=== PATIENT | male | born 1950 | race Two or more races ===

== ENCOUNTER 2020-02-07 09:25 | Outpatient (REF) | payer MEDICAID, SELFPAY ==
[2020-02-07 11:37] LABS: Alanine Aminotransferase 21 U/L (0-40); Albumin Level 4.2 g/dL (3.5-5.0); Alkaline Phosphatase 60 U/L (39-117); Anion Gap 10 (12-20); Aspartate Amino Transferase 22 U/L (5-37); Bilirubin Total 0.9 mg/dL (0.0-1.0); Blood Urea Nitrogen 21 mg/dL (9-16); Calcium 9.4 mg/dL (8.4-10.2); Carbon Dioxide 32 mmol/L (22-29); Chloride 102 mmol/L (96-108); Cholesterol 154 mg/dL; Estimated Glomerular Filt Rate > 60; Glucose Fasting 96 mg/dL (60-99); HDL Cholesterol 43 mg/dL; LDL Cholesterol Calculated 90 mg/dl; Potassium 4.2 mmol/l (3.3-5.1); Sodium 140 mmol/L (135-145); Total Protein 7.2 g/dL (6.5-8.0); Triglycerides 108 mg/dL
== END 2020-02-07 09:26 | disposition home or self-care (01) ==
LOC: HO.LAB 09:25
PROVIDERS: PCP Internal Medicine; Visit Provider Internal Medicine
DX: I10 Essential (primary) hypertension (principal)
CPT/HCPCS: 80053; 80061

== ENCOUNTER → 2020-02-10 11:02 | Outpatient (BNVA) | payer MEDICAID, SELFPAY | PROVIDERS: PCP Internal Medicine; Referring Provider Internal Medicine; Visit Provider Nurse Practitioner Family | DX: R07.89 Other chest pain (principal); I10 Essential (primary) hypertension; E78.5 Hyperlipidemia, unspecified; I25.2 Old myocardial infarction | CPT/HCPCS: 99214 ==

== ENCOUNTER → 2020-02-23 15:04 | Outpatient (REF) | payer MEDICAID, SELFPAY ==
--- NOTE | 2020-02-23 15:09 | CA_ITS ---
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 The visually estimated ejection fraction is between 60-65%. - There is mild aortic valve regurgitation. - There is mild dilatation of the ascending aorta measuring 3.90 cm. Findings Left Ventricle Normal left ventricular cavity size. There is moderately increased left ventricular wall thickness. The left ventricular systolic function is normal. The visually estimated ejection fraction is between 60-65%. There is no evidence of regional wall motion abnormalities. Diastolic function is normal for age. Right Ventricle Normal right ventricular cavity size and systolic function. Atria Both atria are normal in size. Aortic Valve There is a normal trileaflet aortic valve. There is no aortic valve stenosis. There is mild aortic valve regurgitation. Mitral Valve The mitral valve appears normal. There is trace mitral valve regurgitation. There is no mitral valve stenosis. Pulmonic Valve The pulmonic valve was not well visualized. Tricuspid Valve Normal tricuspid valve structure. There is trace tricuspid valve regurgitation. The pulmonary artery systolic pressure is normal. Great Vessels There is mild dilatation of the ascending aorta measuring 3.90 cm. Venous The inferior vena cava is normal in size and collapses greater than 50% with inspiration. Pericardium/Pleural There is no evidence of pericardial effusion. Prior Study Comparison No prior study available for comparison. Measurements 2D Linear Measurements IVSd: 1.30 0.6-0.9/0.6-1.0 cm LVIDd: 4.24 3.9-5.3/4.2-5.9 cm LVIDd Index: 2.15 2.4-3.2/2.2-3.1 cm/m2 LVIDs: 2.82 2.0-3.6 cm LVPWd: 1.35 0.7-1.1 cm Ao Root: 3.10 2.1-3.5 cm LA Diam: 3.40 2.7-3.8/3.0-4.0 cm LAIDs Index: 1.73 1.5-2.3 cm/m2 LV Mass: 260.89 67-162/88-224 g LV Mass Index: 132.43 43-95/49-115 g/m2 LVOT Diam: 2.20 3.0+(-)1.3 cm Mitral Valve MV Pk E: 0.49 MV PK A: 0.78 MV Decel Time: 197.00 E/A: 0.60 E'Lateral: 5.13 E'Medial: 8.12 E/E' Med: 6.00 E/E' Lat: 9.50 PHT: 58.00 MVA PHT: 3.79 Decel Wallace: 2.46 Aortic Valve AoV Pk Dylon: 1.44 AoV Mn Dylon: 1.00 AoV VTI: 0.34 AoV Pk Grad: 8.00 Aov Mn Grad: 5.00 FELIX Cont.VTI: 2.19 LVOT LVOT Pk Dylon: 0.93 LVOT Mn Dylon: 0.57 LVOT VTI: 0.20 LVOT Pk Grad: 3.00 LVOT Mn Grad: 2.00 LVOT Diam: 2.20 LVOT Area: 3.80 Diastolic Function MV Pk E: 0.49 MV Pk A: 0.78 E/A: 0.60 E'Medial: 8.12 E/E' Med: 6.00 E' Laterial: 5.13 E/E' Lat: 9.50 Tricuspid Valve TR Pk Dylon: 1.87 TR Pk Grad: 14.00 RA Press: 3.00 RVSP: 17.00 Great Vessels Aorta Ao Root-2D: 3.10 2.0-3.7 cm Ao Asc: 3.90 2.1-3.4 cm Pulmonary Valve PV Pk Dylon: 0.99 Peak PV Grad: 4.00 Updated in Other Vendor System with Status of Final Nacho Alejandro MD electronically signed on 02/24/2020 9:30:19 AM with status of Final
== END ==
LOC: HO.CARD 15:04
PROVIDERS: PCP Internal Medicine; Visit Provider Nurse Practitioner Family
DX: R07.9 Chest pain, unspecified (principal); I25.2 Old myocardial infarction; I10 Essential (primary) hypertension; E78.5 Hyperlipidemia, unspecified
CPT/HCPCS: 93306

== ENCOUNTER 2020-06-01 15:55 | Outpatient (REF) | payer MEDICAID, SELFPAY ==
--- NOTE | 2020-06-01 16:10 | XR_ITS ---
EXAMINATION: XR CHEST CLINICAL INFORMATION: Hemoptysis. COMPARISON: 01/19/2020 chest radiograph. TECHNIQUE: 2 views of the chest were obtained. FINDINGS: An opacity is seen in the right upper lobe and the suprahilar region. There is mild elevation of the right hemidiaphragm with blunting of the right costophrenic angle without significant change. The left lung is clear. The heart and mediastinal structures are unremarkable. XR/XR chest 2V IMPRESSION: Opacity in the right upper lobe is nonspecific, but could represent an infiltrate. A follow-up chest radiograph finding termination treatment for pneumonia is recommended to assess for resolution. If this finding does not resolve, a chest CT scan is recommended.
[2020-06-01 17:00] LABS: MANUAL DIFF FLAG NO
[2020-06-01 17:06] LABS: Basophils Percent Auto 0.5 % (0-2); Eosinophils Absolute Auto 0.2 X10*3/uL (0.0-0.4); Eosinophils Percent Auto 2.3 % (0-4); Hematocrit 43.2 % (42-52); Hemoglobin 14.4 g/dl (14.0-18.0); Imm Gran Abs Auto 0.01 X10*3/uL (0.00-0.03); Imm Gran Pct Auto 0.2 % (0.0-0.4); Lymphocytes Absolute Auto 2.6 X10*3/uL (1.2-4.9); Lymphocytes Percent Auto 40.3 % (20-40); Mean Corpuscular HGB Conc 33.3 g/dl (31.0-36.0); Mean Corpuscular Hemoglobin 28.9 pg (27.0-33.0); Mean Corpuscular Volume 86.6 fL (80-98); Mean Platelet Volume 9.9 fL (9.4-12.4); Monocytes Absolute Auto 0.7 X10*3/uL (0.1-1.2); Monocytes Percent Auto 10.8 % (2-11); Neutrophils Percent Auto 45.9 % (45-73); Platelet Count 215 X10*3/uL (160-400); Red Blood Count 4.99 X10*6/uL (4.60-5.80); Red Cell Distribution Width 12.9 % (11.0-16.0); White Blood Count 6.5 X10*3/uL (4.8-10.8)
[2020-06-01 17:24] LABS: Alanine Aminotransferase 23 U/L (0-40); Albumin Level 4.3 g/dL (3.5-5.0); Alkaline Phosphatase 94 U/L (39-117); Anion Gap 12 (12-20); Aspartate Amino Transferase 24 U/L (5-37); Blood Urea Nitrogen 17 mg/dL (9-16); Calcium 9.3 mg/dL (8.4-10.2); Carbon Dioxide 32 mmol/L (22-29); Chloride 100 mmol/L (96-108); Estimated Glomerular Filt Rate > 60; Glucose Random 93 mg/dL (60-115); Potassium 4.5 mmol/L (3.3-5.1); Sodium 139 mmol/L (135-145); Total Protein 7.6 g/dL (6.5-8.0)
[2020-06-01 17:45] LABS: Prostate Specific Antigen 1.18 ng/mL (<0.05-4.0)
== END 2020-06-01 15:56 | disposition home or self-care (01) ==
LOC: HO.LAB 15:55
PROVIDERS: PCP Internal Medicine; Visit Provider Internal Medicine
DX: R04.2 Hemoptysis (principal); Z12.5 Encounter for screening for malignant neoplasm of prostate
CPT/HCPCS: 36415; 71046; 80053; 84153; 85025

== ENCOUNTER 2020-06-04 16:42 | Outpatient (REF) | payer MEDICAID, SELFPAY | END 2020-06-04 16:43 | disposition home or self-care (01) | LOC: HO.LAB 16:42 | PROVIDERS: PCP Internal Medicine; Visit Provider Internal Medicine | DX: Z20.822 Contact with and (suspected) exposure to COVID-19 (principal) | CPT/HCPCS: 36415; C9803; U0003; U0005 ==

== ENCOUNTER 2020-06-11 16:38 | Outpatient (REF) | payer MEDICAID, SELFPAY ==
--- NOTE | ~2020-06-11 | XR_ITS ---
EXAMINATION: CHEST 2 VIEWS CLINICAL INFORMATION: R91.8 - Other nonspecific abnormal finding of lung field . COMPARISON: 06/01/2020. TECHNIQUE: PA and lateral views of the chest obtained. FINDINGS: There is asymmetric elevation of the right hemidiaphragm again noted, similar to the recent prior study focal opacity in the right upper lobe remains although this is slightly less prominent from the prior study. Improving infiltrate could have this appearance with mild residual postinfectious/postinflammatory changes however continued follow-up to complete resolution would be recommended. No significant effusion, edema, or pneumothorax. Cardiac and mediastinal silhouettes within normal limits for size. XR/XR chest 2V IMPRESSION: Chronic asymmetric elevation the right hemidiaphragm. Focal airspace opacity in the right upper lobe is again noted. This has shown mild improvement from the prior study but does still persist. Continued follow-up to assure complete resolution would be recommended. If this finding persists, cross-sectional imaging with CT scan of the chest could be obtained to evaluate this further.
== END 2020-06-11 16:39 | disposition home or self-care (01) ==
LOC: HO.XRAY 16:38
PROVIDERS: PCP Internal Medicine; Visit Provider Internal Medicine
DX: R91.8 Other nonspecific abnormal finding of lung field (principal)
CPT/HCPCS: 71046

== ENCOUNTER 2020-06-17 15:45 | Outpatient (REF) | payer MEDICAID, SELFPAY | END 2020-06-17 15:46 | disposition home or self-care (01) | LOC: HO.LAB 15:45 | PROVIDERS: PCP Internal Medicine; Visit Provider Internal Medicine | DX: Z20.822 Contact with and (suspected) exposure to COVID-19 (principal) | CPT/HCPCS: 36415; C9803; U0003; U0005 ==

== ENCOUNTER 2020-07-28 07:25 | Outpatient (REF) | payer MEDICAID, SELFPAY ==
[2020-07-28 09:11] LABS: Blood Urea Nitrogen 16 mg/dL (9-16); Estimated Glomerular Filt Rate > 60
== END 2020-07-28 07:26 | disposition home or self-care (01) ==
LOC: HO.LAB 07:25
PROVIDERS: PCP Internal Medicine; Visit Provider Internal Medicine
DX: R91.8 Other nonspecific abnormal finding of lung field (principal)
CPT/HCPCS: 36415; 82565; 84520

== ENCOUNTER 2020-07-30 07:17 | Outpatient (REF) | payer MEDICAID, SELFPAY ==
--- NOTE | ~2020-07-30 | CT_ITS ---
EXAMINATION: CT CHEST WITH CONTRAST CLINICAL INFORMATION: Abnormal lung finding. COMPARISON: Chest x-ray 06/11/2020 and 04/02/2017 TECHNIQUE: Multidetector volumetric CT imaging of the chest was obtained after the administration of 65 mL of Omnipaque 350 intravenous contrast without immediate adverse reactions. Axial MIP volume rendering provided. Sagittal and coronal reformatted images were obtained. This CT examination was performed using dose optimization techniques as appropriate, variously including the following: Automated exposure control Adjustment of mA and/or kV according to patient size (this includes techniques or standardized protocols for targeted exams where dose is matched to indication/reason for exam; i.e. 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 LUNGS: There is loss of right upper lobe lung volume with 2 areas of patchy ill-defined opacity in the anterior and lateral segment, likely chronic scarring. This finding extends to a chest x-ray from 04/02/2017, except for slightly more dense opacity in the right upper lobe on the present exam. Rest of the right lung and the left lung is expanded and clear. MEDIASTINUM: The thyroid lobes are normal in size with small hypodense nodules. Central trachea and the bronchi are widely patent. Heart size and the great vessels are of normal caliber. There are no abnormal mediastinal lymph nodes seen. The mediastinal vascular structures are normal. There is no pericardial effusion. PLEURA: There is no pleural effusion. No pleural mass or thickening. AXILLA: There are small shotty lymph nodes in the axilla. UPPER ABDOMEN: The liver is diffusely attenuated but normal in size and shape. No focal lesion or intrahepatic ductal dilatation seen. Visualized spleen, pancreas and bilateral adrenal glands are unremarkable. OSSEOUS STRUCTURES: There is moderate ventral spondylosis in the upper and mid dorsal spine. No lytic process. CT/CT chest w con IMPRESSION: There is loss of right upper lobe volume with elevated right hemidiaphragm. In addition there are 2 patchy ill-defined opacities in the right upper lobe likely chronic scarring. Differential diagnoses includes infiltrates or malignancy. Malignancy is considered less likely. These findings were seen on 2017 chest x-ray, and have gradually increased. A PET/CT examination may be helpful to exclude malignancy in this growing scar since they have increased in size. No abnormal mediastinal or axillary lymphadenopathy.
[2020-07-30] MEDS: iohexoL 350 MG/ML 75 ML INFUS..BTL 65 ML IV (08:25)
== END 2020-07-30 07:18 | disposition home or self-care (01) ==
LOC: HO.CT 07:17
PROVIDERS: Visit Provider Internal Medicine
DX: R91.8 Other nonspecific abnormal finding of lung field (principal)
CPT/HCPCS: 71260; Q9967

== ENCOUNTER → 2020-08-05 10:49 | Outpatient (BNVA) | payer MEDICAID, SELFPAY | PROVIDERS: PCP Internal Medicine; Visit Provider Internal Medicine Pulmonary Disease | DX: R91.8 Other nonspecific abnormal finding of lung field (principal); R05 Cough | CPT/HCPCS: 99202 ==

== ENCOUNTER 2020-08-10 12:20 | Outpatient (REF) | payer MEDICAID, SELFPAY ==
--- NOTE | ~2020-08-10 | PE_ITS ---
EXAMINATION: Fluorine-18 FDG PET/CT Scan CLINICAL INDICATION: Initial treatment management. Opacities in right upper lobe of the lung. PROCEDURE: 67 minutes following the intravenous administration of 16.5 mCi of fluorine 18 FDG, images from the base of the skull to the mid thighs were obtained using a combined PET/CT scanner with CT scan based attenuation correction. No oral contrast was administered. No intravenous contrast was administered. Transverse, coronal, sagittal, and volume reconstruction projections were obtained. The patient's blood glucose as determined by a finger stick, was 78 mg/dl immediately prior to injection. Total CT exam dose-length product 505.84 mGy-cm * These CT images were obtained using dose optimization techniques as appropriate, variously including the following: Automated exposure control * Adjustment of mA and/or kV according to patient size (this includes techniques or standardized protocols for targeted exams where dose is matched to indication/reason for exam; i.e. extremities or head) * Use of iterative reconstruction technique COMPARISON: No previous PET/CT scan is available for comparison. CT scan of the chest dated 07/30/2020 is available for comparison. FINDINGS: (Slice numbers described in this report are numbered superiorly to inferiorly with slice #1 in the head) NECK AND VISUALIZED HEAD: No foci of abnormal FDG activity are noted. The distribution of FDG activity is physiological. There is no cervical lymphadenopathy. THORAX: There is weak FDG activity associated with an irregular opacity in the right upper lobe, SUVmax 2.1, slice 83/267. On the CT images this measures approximately 2.3 x 1.3 cm in largest transverse dimensions and approximately 3.4 cm cephalocaudad. Posterior and slightly superior to this opacity a second right upper lobe opacity measuring 2.1 x 1.0 cm in largest transverse dimensions and approximately 2.3 cm cephalocaudad is present, and this shows even less intense weak FDG activity, SUVmax 1.3, slice 77/267. The appearance of these opacities is not significantly changed compared to the CT scan of the chest dated 07/30/2020. There is an additional proximal peribronchial focus of mildly increased FDG activity abutting the posterior aspect of the right middle lobe bronchus, showing SUVmax 4.2, slice 91/267. No definite CT correlate is present on either this study or the recent 07/30/2020 CT scan. No additional foci of abnormal FDG activity are present in the chest. There is no mediastinal, supraclavicular, or axillary lymphadenopathy. There is no pleural or pericardial fluid, or pneumothorax. ABDOMEN AND PELVIS: No foci of abnormal FDG activity are present in the abdomen or pelvis. There is mild FDG activity present throughout the gastrointestinal tract without a suspicious focal component. There is diverticulosis without evidence of diverticulitis. The hollow viscera are otherwise unremarkable. There is a hypodense cyst in the midpole of the left kidney which is markedly FDG photopenic and likely a simple cyst. The kidneys are otherwise unremarkable. The liver, gallbladder, spleen, adrenal glands and pancreas are unremarkable. Bilateral fat-containing inguinal hernias are present. There is no retroperitoneal, mesenteric, pelvic or inguinal lymphadenopathy. MUSCULOSKELETAL: No foci of abnormal FDG activity are present in the osseous structures. There are degenerative changes in the spine but no suspicious sclerotic or lytic lesions are visualized. VASCULAR: No significant abnormalities are present. PET/PET CT fusion skull to thigh IMPRESSION: 1. Weak FDG activity associated with opacities in the right upper lobe are noted as described above. This mild FDG intensity suggests a benign etiology. However Because approximately 10% of pulmonary malignancies demonstrate no abnormal FDG activity, if biopsy of these opacities is not obtained, followup with diagnostic CT scan in 6 months is recommended. 2. Mild FDG activity in a right proximal peribronchial focus shows no corresponding CT abnormality. This may be due to some prominence of vasculature in this region or an inflammatory focus, but in the absence of CT abnormality there is is not strongly suspicious for malignancy. 3. No additional abnormalities suspicious for metastatic or other malignant lesions are noted.
== END 2020-08-10 12:21 | disposition home or self-care (01) ==
LOC: HO.PET 12:20
PROVIDERS: PCP Internal Medicine; Visit Provider Internal Medicine Pulmonary Disease
DX: Z13.89 Encounter for screening for other disorder (principal)

== ENCOUNTER 2020-08-31 14:56 | Outpatient (REF) | payer MEDICAID, SELFPAY ==
--- NOTE | 2020-08-31 17:38 | PFT_ITS ---
INDICATION: Cough. SPIROMETRY: The FEV1 to FVC of 78% with an FEV1 of 2.17 L which is 70% predicted and an FVC of 2.77 L which is 68% predicted. No significant response to bronchodilators noted. Maximum voluntary ventilation 74% predicted. LUNG VOLUMES: Total lung capacity 59% predicted with an expiratory reserve volume of 68% predicted. DIFFUSION CAPACITY: DLCO 72% predicted. As per flow volume loop appears to be narrow. Flow volume loop suggesting of restrictive lung disease. COMPARISONS: None available. INTERPRETATION: No obstructive ventilatory defect. No significant response to bronchodilators noted. There is a mild decrease in maximum voluntary ventilation. However, there is a moderate restrictive ventilatory defect bringing up the concerns of underlying interstitial lung conditions and/or neuromuscular conditions. The patient also has a mild diffusion impairment. Clinical correlation warranted. MD SHADI Edmonds/AJAY / [id number]
== END 2020-08-31 14:57 | disposition home or self-care (01) ==
LOC: HO.RESP 14:56
PROVIDERS: PCP Internal Medicine; Visit Provider Internal Medicine Pulmonary Disease
DX: R05 Cough (principal)
CPT/HCPCS: 94060; 94727; 94729

== ENCOUNTER → 2020-09-03 15:39 | Outpatient (BNVA) | payer MEDICAID, SELFPAY | PROVIDERS: PCP Internal Medicine; Visit Provider Internal Medicine Pulmonary Disease | DX: R91.8 Other nonspecific abnormal finding of lung field (principal); R05 Cough; J84.9 Interstitial pulmonary disease, unspecified | CPT/HCPCS: 99212 ==

== ENCOUNTER → 2020-10-25 13:42 | Outpatient (BNVA) | payer MEDICAID, SELFPAY | PROVIDERS: PCP Internal Medicine; Referring Provider Internal Medicine; Visit Provider Internal Medicine Cardiovascular Disease | DX: I10 Essential (primary) hypertension (principal); I25.2 Old myocardial infarction; I25.82 Chronic total occlusion of coronary artery; E78.5 Hyperlipidemia, unspecified; E78.00 Pure hypercholesterolemia, unspecified; Z88.6 Allergy status to analgesic agent; Z88.1 Allergy status to other antibiotic agents; Z88.0 Allergy status to penicillin; Z88.2 Allergy status to sulfonamides; Z79.899 Other long term (current) drug therapy | CPT/HCPCS: 93005; 99212 ==

== ENCOUNTER 2020-12-08 09:33 | Outpatient (REF) | payer MEDICAID, SELFPAY ==
[2020-12-08 12:21] LABS: Alanine Aminotransferase 26 U/L (0-40); Albumin Level 4.3 g/dL (3.5-5.0); Alkaline Phosphatase 74 U/L (39-117); Anion Gap 12 (12-20); Aspartate Amino Transferase 24 U/L (5-37); Bilirubin Total 1.1 mg/dL (0.0-1.0); Blood Urea Nitrogen 15 mg/dL (9-16); Calcium 9.5 mg/dL (8.4-10.2); Carbon Dioxide 29 mmol/L (22-29); Chloride 102 mmol/L (96-108); Cholesterol 152 mg/dL; Estimated Glomerular Filt Rate > 60; HDL Cholesterol 39 mg/dL; LDL Cholesterol Calculated 88 mg/dl; Potassium 4.3 mmol/L (3.3-5.1); Sodium 139 mmol/L (135-145); Total Protein 7.3 g/dL (6.5-8.0); Triglycerides 125 mg/dL
[2020-12-08 12:44] LABS: Glucose Fasting 91 mg/dL (60-99)
== END 2020-12-08 09:34 | disposition home or self-care (01) ==
LOC: HO.HMGCLDS 09:33
PROVIDERS: PCP Internal Medicine; Visit Provider Internal Medicine
DX: E78.5 Hyperlipidemia, unspecified (principal); I10 Essential (primary) hypertension
CPT/HCPCS: 36415; 80053; 80061

== ENCOUNTER 2020-12-13 16:41 | Outpatient (REF) | payer MEDICAID, SELFPAY ==
--- NOTE | ~2020-12-13 | XR_ITS ---
EXAMINATION: XR HIP, LEFT CLINICAL INFORMATION: Left hip pain. COMPARISON: None. TECHNIQUE: 2 views of the left hip. FINDINGS: No acute fracture or dislocation. Minimal joint space narrowing with tiny lateral acetabular marginal osteophytes. No osseous erosion. Phleboliths. XR/XR hip LT min 2V IMPRESSION: Minimal left hip arthrosis.
== END 2020-12-13 16:42 | disposition home or self-care (01) ==
LOC: HO.XRAY 16:41
PROVIDERS: PCP Internal Medicine; Visit Provider Internal Medicine
DX: M25.552 Pain in left hip (principal)
CPT/HCPCS: 73502

== ENCOUNTER 2021-02-01 16:28 | Outpatient (REF) | payer MEDICAID, SELFPAY ==
--- NOTE | ~2021-02-01 | CT_ITS ---
EXAMINATION: CT CHEST WITHOUT CONTRAST CLINICAL INFORMATION: Follow-up right upper lung opacity COMPARISON: Previous chest CT July 2020, PET/CT July 2020 and chest x-rays most recent May 2020 TECHNIQUE: Multidetector volumetric CT imaging of the chest was done. Axial MIP volume rendering provided. Sagittal and coronal reformatted images were obtained. This CT examination was performed using dose optimization techniques as appropriate, variously including the following: *Automated exposure control *Adjustment of mA and/or kV according to patient size (this includes techniques or standardized protocols for targeted exams where dose is matched to indication/reason for exam; i.e. extremities or head) *Use of iterative reconstruction technique DLP: 375 mGy-cm FINDINGS: BODY ARTIST: Elevated right hemidiaphragm LUNGS: There is right upper lobe volume loss. There are 2 areas of parenchymal consolidation in the right upper lobe. These do not appear appreciably changed from July 2020 exam. One measures 2.2 x 2.9 cm for example axial image 152 series 5. This is irregularly-shaped and contains air bronchograms. The second measures 0.9 x 1.8 cm axial image 134 series 5 contains air bronchograms. Both are subpleural adjacent to the minor fissure. The larger lesion may cross the minor fissure and involve the right middle lobe. There may be an accessory right upper lobe fissure. There is peripheral scarring or subsegmental atelectasis at the right lung base. The lungs are otherwise clear. No endobronchial or endotracheal lesion is seen. MEDIASTINUM: The ascending thoracic aorta is upper normal in size measuring 4 cm. The mediastinum is otherwise normal. PLEURA: There is no pleural effusion. No pleural mass or thickening. AXILLA: No lymphadenopathy. UPPER ABDOMEN: Unremarkable. OSSEOUS STRUCTURES: There is evidence of old trauma to the right posterior sixth and seventh ribs. There are degenerative changes of the spine. CT/CT chest wo con IMPRESSION: No change in right upper lobe volume loss and irregularly-shaped abnormal parenchymal densities with air bronchograms in the right upper lobe.
== END 2021-02-01 16:29 | disposition home or self-care (01) ==
LOC: HO.CT 16:28
PROVIDERS: PCP Internal Medicine; Visit Provider Internal Medicine Pulmonary Disease
DX: R91.8 Other nonspecific abnormal finding of lung field (principal)
CPT/HCPCS: 71250

== ENCOUNTER 2021-02-09 15:54 | Outpatient (REF) | payer MEDICAID, SELFPAY ==
[2021-02-10 12:37] LABS: Influenza A PCR NEGATIVE (Negative); Influenza B PCR NEGATIVE (Negative); Resp Syncy Virus RNA Qual PCR NEGATIVE (Negative); SARS COV2 PCR INHOUSE NEGATIVE (Negative)
== END 2021-02-09 15:55 | disposition home or self-care (01) ==
LOC: HO.LAB 15:54
PROVIDERS: Visit Provider Physician Assistant Medical
DX: Z20.822 Contact with and (suspected) exposure to COVID-19 (principal); J06.9 Acute upper respiratory infection, unspecified
CPT/HCPCS: 0241U; 36415

== ENCOUNTER 2021-02-24 15:00 | Outpatient (RCR) | payer MEDICAID, SELFPAY ==
--- NOTE | 2021-01-19 17:40 | MHC.PT.EP ---
[facility] [place] [facility] [place] [address] [phone] F: [phone] F: [phone] F: [phone] F: [phone] Physical Therapy Plan of Care Date of Evaluation: Date of Surgery: n/a Diagnosis: pain in L hip, lower thoracic Assessment: Pt is a 70 yo/M referred to PT for eval/treat of pain in L hip, lower thoracic pain. S/S are consistent with L hip dysfunction resulting in decreased tolerance to ambulating for duration , negotiating stairs, and activities that require him to forward bend frequently and lifting objects off of the floor. Functional limitation mentioned above are secondary to decreased L hip strength, pain w/ L hip ROM at end range (flexion and abd), TTP of L iliac crest, and pain. pt is deemed appropriate to receive skilled PT to address her physical impairment and improve her functional abilities. Frequency and Duration: The patient will be seen 2x/wk for 5wk Short Term Goals: initiate HEP w/ evidence of compliance pt will report less than 2/10 pain w/ WB activites; initial 5/10 E [employer] Merchant Goals: pt will be I w/ HEP pt will be able to ambulate a mile with minimal pain/discomfort. pt will report i can lift heavy weights w/ minimal pain ; initial pain prevents me from lifting heavy objects off of the floor pt will report no longer finding TTP of R illiac crest Treatment Plan: Modalities to reduce pain, spasms and effusion. Manual therapy to restore motion and function. Therapeutic exercise to improve strength and flexibility. Neuromuscular re-education for posture and balance. Therapeutic activities to return to functional activities of daily living. Electronically signed by: Mike Perkins PT Please sign and return to therapist. Thank you for your referral.
--- NOTE | 2021-08-31 09:24 | MHC.PT.DC ---
[facility] [place] Office [place] Office [place] Office [address] [place] Bro[address] [phone] F: [phone] F: [phone] F: [phone] F: [phone] Physical Therapy Discharge Report Diagnosis: pain in L hip, lower thoracic Date of Surgery: n/a Date of Evaluation: 01/19/21 Date of Discharge: 08/31/21 Treatments to Date: 9 Cancellations to Date: No Shows to Date: Discharge Status: Achieved Goals Improved Function Independent with HEP Discharge Summary: Continues to demo good tolerance with exercises. Last scheduled appointment today (02/24). No adverse reactions noted. Has HEP for continued maintenance. DC to HEP Electronically signed by: Melba Stanford PT Please sign and return to therapist. Thank you for your referral.
== END 2021-08-31 09:25 | disposition home or self-care (01) ==
LOC: HO.PTCHIC 15:00
PROVIDERS: PCP Internal Medicine; Visit Provider Internal Medicine
DX: M25.552 Pain in left hip (principal); M54.6 Pain in thoracic spine
CPT/HCPCS: 97110; 97140; 97150; 97161

== ENCOUNTER → 2021-03-04 15:44 | Outpatient (BNVA) | payer MEDICAID, SELFPAY | PROVIDERS: PCP Internal Medicine; Visit Provider Internal Medicine Pulmonary Disease | DX: R91.8 Other nonspecific abnormal finding of lung field (principal); R05.9 Cough, unspecified | CPT/HCPCS: 99212 ==

== ENCOUNTER → 2021-04-11 15:08 | Outpatient (BNVA) | payer MEDICAID, SELFPAY | PROVIDERS: PCP Internal Medicine; Referring Provider Internal Medicine; Visit Provider Internal Medicine Cardiovascular Disease | DX: I25.2 Old myocardial infarction (principal); I10 Essential (primary) hypertension; E78.5 Hyperlipidemia, unspecified | CPT/HCPCS: 99212 ==

== ENCOUNTER → 2021-05-31 14:56 | Outpatient (BNVA) | payer MEDICAID, SELFPAY | PROVIDERS: PCP Internal Medicine; Visit Provider Nurse Practitioner Family | DX: M47.27 Other spondylosis with radiculopathy, lumbosacral region (principal) | CPT/HCPCS: 99202 ==

== ENCOUNTER 2021-06-15 15:07 | Outpatient (REF) | payer MEDICAID, SELFPAY ==
--- NOTE | ~2021-06-15 | MR_ITS ---
EXAMINATION: MR LUMBAR SPINE WITHOUT CONTRAST CLINICAL INFORMATION: Lumbosacral radiculopathy. The patient states lower back pain and right hip pain. COMPARISON: PET CT scan 08/10/2020. TECHNIQUE: MRI of the lumbar spine was obtained using routine sequences without contrast. FINDINGS: VERTEBRAL BODIES AND PARASPINAL STRUCTURES: There is straightening of the normal lumbar lordosis. There is narrowing of intervertebral disc height with loss of signal at L4-L5. There are degenerative endplate contour changes with predominantly fatty signal at this level. Milder changes are seen at L5-S1. The vertebral bodies have normal height and contour and no fractures are demonstrated. Overall, marrow signal is homogenous. There are bilateral renal cysts. The visualized pelvic structures are unremarkable. CONUS MEDULLARIS AND CAUDA EQUINA: Normal, terminating at the level of L1. The lower thoracic spinal cord appears normal. The cauda equina nerve roots and filum terminale appear normal. SPINAL LEVELS: L1-L2: The facet joints appear normal bilaterally. Disc contour is normal. There is no central stenosis or foraminal narrowing. L2-L3: There is mild bilateral facet arthropathy. There is a mild diffuse disc bulge. There is no central stenosis and the there is mild bilateral facet arthropathy. The neural foramina are patent bilaterally. L3-L4: There is mild bilateral facet arthropathy. There is a shallow posterior disc protrusion extending into the neural foramina without definite exiting nerve root impingement. There is mild narrowing of the bilateral subarticular recesses. There is no central stenosis. L4-L5: There is moderate bilateral facet arthropathy with ligamenta flava hypertrophy and facet joint effusions. There is a broad-based disc protrusion extending into the neural foramina bilaterally with impingement on the exiting L4 nerve roots. There is marked narrowing of the bilateral subarticular recesses and there is moderate to severe central stenosis. L5-S1: There is mild to moderate bilateral facet arthropathy. There is a posterior disc protrusion with an annular fissure with no significant mass effect on the thecal sac. There are bilateral foraminal disc protrusions, more prominent on the right with impingement on the exiting L5 nerve roots. There is no central stenosis. MR/MR lumbar spine wo con IMPRESSION: 1 At L4-L5 there is facet arthropathy and there is a disc protrusion extending into the neural foramina bilaterally. There is impingement on the exiting L4 nerve roots and there is marked narrowing of the bilateral subarticular recesses with moderate to severe central stenosis. 2. At L5-S1 there is facet arthropathy. There are bilateral foraminal disc protrusions with impingement on the exiting L5 nerve roots. There is no central stenosis. 3. Milder spondylitic and facet arthropathic changes are also demonstrated at L2-L3 and L3-L4.
== END 2021-06-15 15:08 | disposition home or self-care (01) ==
LOC: HO.MRI 15:07
PROVIDERS: Visit Provider Nurse Practitioner Family
DX: M47.27 Other spondylosis with radiculopathy, lumbosacral region (principal)
CPT/HCPCS: 72148

== ENCOUNTER → 2021-06-29 15:58 | Outpatient (BNVA) | payer MEDICAID, SELFPAY | PROVIDERS: PCP Internal Medicine; Visit Provider Nurse Practitioner Family | DX: M47.27 Other spondylosis with radiculopathy, lumbosacral region (principal); M48.07 Spinal stenosis, lumbosacral region | CPT/HCPCS: 99212 ==

== ENCOUNTER → 2021-08-01 15:01 | Outpatient (BNVA) | payer MEDICAID, SELFPAY | PROVIDERS: PCP Internal Medicine; Referring Provider Internal Medicine; Visit Provider Internal Medicine Cardiovascular Disease | DX: E78.5 Hyperlipidemia, unspecified (principal); I10 Essential (primary) hypertension | CPT/HCPCS: 99212 ==

== ENCOUNTER 2021-08-27 08:33 | Outpatient (REF) | payer MEDICAID, SELFPAY ==
[2021-08-27 11:26] LABS: Alanine Aminotransferase 24 U/L (0-40); Albumin Level 4.1 g/dL (3.5-5.0); Alkaline Phosphatase 70 U/L (39-117); Anion Gap 12 (12-20); Aspartate Amino Transferase 21 U/L (5-37); Bilirubin Total 0.5 mg/dL (0.0-1.0); Blood Urea Nitrogen 20 mg/dL (9-16); Calcium 9.9 mg/dL (8.4-10.2); Carbon Dioxide 30 mmol/L (22-29); Chloride 102 mmol/L (96-108); Cholesterol 241 mg/dL; Estimated Glomerular Filt Rate 54; Glucose Fasting 100 mg/dL (60-99); HDL Cholesterol 42 mg/dL; LDL Cholesterol Calculated 160 mg/dl; Potassium 5.1 mmol/L (3.3-5.1); Sodium 139 mmol/L (135-145); Total Protein 7.6 g/dL (6.5-8.0); Triglycerides 197 mg/dL
== END 2021-08-27 08:34 | disposition home or self-care (01) ==
LOC: HO.HMGCLDS 08:33
PROVIDERS: PCP Internal Medicine; Visit Provider Internal Medicine
DX: E78.5 Hyperlipidemia, unspecified (principal); I10 Essential (primary) hypertension
CPT/HCPCS: 36415; 80053; 80061

== ENCOUNTER 2021-08-30 10:01 | Outpatient (REF) | payer MEDICAID, SELFPAY ==
[2021-08-30 10:43] LABS: COVID-19 Test Positive (Negative)
== END 2021-08-30 10:02 | disposition home or self-care (01) ==
LOC: HO.LAB 10:01
PROVIDERS: Visit Provider Internal Medicine
DX: Z20.822 Contact with and (suspected) exposure to COVID-19 (principal)
CPT/HCPCS: 87635; C9803

== ENCOUNTER 2021-09-06 15:14 | Outpatient (REF) | payer MEDICAID, SELFPAY ==
--- NOTE | ~2021-09-06 | CT_ITS ---
EXAMINATION: CT CHEST WITHOUT CONTRAST CLINICAL INFORMATION: Right upper lung opacity. Follow up. COMPARISON: CT chest 02/01/2021. TECHNIQUE: Multidetector volumetric CT imaging of the chest was done. Axial MIP volume rendering provided. Sagittal and coronal reformatted images were obtained. This CT examination was performed using dose optimization techniques as appropriate, variously including the following: *Automated exposure control *Adjustment of mA and/or kV according to patient size (this includes techniques or standardized protocols for targeted exams where dose is matched to indication/reason for exam; i.e. 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 The left lung remains clear. LUNGS: There are postsurgical changes right lung with two ill-defined irregular parenchymal consolidations. The right central lesion measures 2.2 x 1.1 cm and anterior lesion 2.6 x 2.0 cm, on axial image 17/5. The lesion in the anterior segment is close to minor fissure and is crossing the fissure into the right middle lobe. There is tenting of the right minor fissure. By my measurements these lesions are stable. There is loss of right lung volume. The right lower lobe appears unremarkable. The left lung is clear. MEDIASTINUM: The thyroid lobes are symmetrical and normal. The central trachea and the bronchi are widely patent. The heart size and the great vessels are normal caliber. Ascending aorta is 4 cm and is stable. There is no pericardial effusion. No abnormal mediastinal lymph node seen. PLEURA: There is no pleural effusion. No pleural mass or thickening. AXILLA: There are small shotty lymph nodes in the axilla. The chest wall is unremarkable. UPPER ABDOMEN: Visualized liver, spleen, pancreas and bilateral adrenal glands unremarkable. OSSEOUS STRUCTURES: No lytic or sclerotic process seen. There is moderate spondylosis throughout dorsal spine. CT/CT chest wo con IMPRESSION: Postop changes right upper lobe with two ill-defined irregular opacities right upper lobe likely postop scarring. By my measurements they are stable. No new nodule seen. Fleischner guidelines were followed.
[2021-09-12 14:17] LABS: Testosterone, Free 79.2 pg/mL (30.0-135.0); Testosterone, Total 388 ng/dL (250-1100)
== END 2021-09-06 15:15 | disposition home or self-care (01) ==
LOC: HO.CT 15:14
PROVIDERS: Absent Provider Internal Medicine; PCP Internal Medicine; Visit Provider Internal Medicine Pulmonary Disease
DX: R91.8 Other nonspecific abnormal finding of lung field (principal)
CPT/HCPCS: 36415; 71250; 84402; 84403

== ENCOUNTER → 2021-09-14 14:26 | Outpatient (BNVA) | payer MEDICAID, SELFPAY | PROVIDERS: PCP Internal Medicine; Visit Provider Internal Medicine Pulmonary Disease | DX: R93.89 Abnormal findings on diagnostic imaging of other specified body structures (principal) | CPT/HCPCS: 99212 ==

== ENCOUNTER 2022-01-14 09:59 | Outpatient (REF) | payer MEDICAID, SELFPAY ==
[2022-01-14 11:46] LABS: Alanine Aminotransferase 27 U/L (0-40); Albumin Level 4.3 g/dL (3.5-5.0); Alkaline Phosphatase 78 U/L (39-117); Anion Gap 17 (12-20); Aspartate Amino Transferase 24 U/L (5-37); Bilirubin Total 0.5 mg/dL (0.0-1.0); Blood Urea Nitrogen 16 mg/dL (9-16); Calcium 9.7 mg/dL (8.4-10.2); Carbon Dioxide 30 mmol/L (22-29); Chloride 100 mmol/L (96-108); Cholesterol 226 mg/dL; Estimated Glomerular Filt Rate > 60; Glucose Fasting 99 mg/dL (60-99); HDL Cholesterol 44 mg/dL; LDL Cholesterol Calculated 150 mg/dl; Potassium 4.6 mmol/L (3.3-5.1); Sodium 142 mmol/L (135-145); Total Protein 7.7 g/dL (6.5-8.0); Triglycerides 161 mg/dL
== END 2022-01-14 10:00 | disposition home or self-care (01) ==
LOC: HO.HMGCLDS 09:59
PROVIDERS: PCP Internal Medicine; Visit Provider Internal Medicine
DX: E78.5 Hyperlipidemia, unspecified (principal); I10 Essential (primary) hypertension; N52.9 Male erectile dysfunction, unspecified
CPT/HCPCS: 36415; 80053; 80061; 84402; 84403

== ENCOUNTER → 2022-02-14 15:04 | Outpatient (BNVA) | payer MEDICAID, SELFPAY | PROVIDERS: PCP Internal Medicine; Referring Provider Internal Medicine; Visit Provider Nurse Practitioner Family | DX: I25.10 Atherosclerotic heart disease of native coronary artery without angina pectoris (principal); I25.2 Old myocardial infarction; I10 Essential (primary) hypertension; I77.810 Thoracic aortic ectasia; E78.5 Hyperlipidemia, unspecified; Z95.5 Presence of coronary angioplasty implant and graft | CPT/HCPCS: 93005; 99212 ==

== ENCOUNTER 2022-05-23 07:14 | Outpatient (REF) | payer MEDICAID, SELFPAY ==
[2022-05-23 12:19] LABS: Alanine Aminotransferase 19 U/L (0-40); Alkaline Phosphatase 64 U/L (39-117); Anion Gap 13 (12-20); Aspartate Amino Transferase 21 U/L (5-37); Bilirubin Total 0.6 mg/dL (0.0-1.0); Blood Urea Nitrogen 19 mg/dL (9-16); Calcium 9.3 mg/dL (8.4-10.2); Carbon Dioxide 31 mmol/L (22-29); Chloride 102 mmol/L (96-108); Cholesterol 143 mg/dL; Estimated Glomerular Filt Rate 56; Glucose Fasting 106 mg/dL (60-99); HDL Cholesterol 40 mg/dL; LDL Cholesterol Calculated 68 mg/dl; Potassium 4.6 mmol/L (3.3-5.1); Sodium 141 mmol/L (135-145); Triglycerides 176 mg/dL
[2022-05-28 18:14] LABS: Testosterone, Free 67.8 pg/mL (30.0-135.0); Testosterone, Total 449 ng/dL (250-1100)
== END 2022-05-23 07:15 | disposition home or self-care (01) ==
LOC: HO.HMGCLDS 07:14
PROVIDERS: PCP Internal Medicine; Visit Provider Internal Medicine
DX: N52.9 Male erectile dysfunction, unspecified (principal); E78.5 Hyperlipidemia, unspecified; I10 Essential (primary) hypertension
CPT/HCPCS: 36415; 80053; 80061; 84402; 84403

== ENCOUNTER 2022-06-10 11:16 | Outpatient (REF) | payer MEDICAID, SELFPAY ==
[2022-06-10 14:34] LABS: PSA,Total (Free>4and<10) 1.26 ng/mL (0.00-4.00)
== END 2022-06-10 11:17 | disposition home or self-care (01) ==
LOC: HO.HMGCLDS 11:16
PROVIDERS: PCP Internal Medicine; Visit Provider Internal Medicine
DX: Z12.5 Encounter for screening for malignant neoplasm of prostate (principal)
CPT/HCPCS: 36415; 84153

== ENCOUNTER → 2022-08-02 14:59 | Outpatient (REF) | payer MEDICAID, SELFPAY ==
--- NOTE | 2022-08-02 15:04 | CA_ITS ---
Transthoracic Echocardiogram Patient (Last, First, Middle): Jitendra Graham, Gender: Male Date of : 1950 Age: 71 Procedure Date: 08/02/2022 Procedure Type: Transthoracic Echocardiogram Location: OP Height: 172.72 cm Weight: 88.91 kg BSA: 2.03 m2 Heart Rate: 60 bpm BP: 125 / 80 mmHg Floor Cashier: POOL Cheney MD: Deidre Ortega CLAY MINER-C Rn Tele: Ashwin Seals MD Symptoms: I77.810 - Thoracic aortic ectasia Study Quality: Fair ECG Rhythm: Sinus Conclusions: - 1. Normal LV systolic function with mild LVH with impaired relaxation filling pattern 2. Mild aortic regurgitation 3. Mildly dilated ascending aorta at 4.1 cm 4. Normal RV systolic pressure 5. No gross pericardial effusion Findings Left Ventricle Normal left ventricular size and systolic function. There is mildly increased left ventricular wall thickness. The visually estimated ejection fraction is between 55-60%. Spectral Doppler is indicative of an impaired relaxation filling pattern. E/E prime ratio is between 8 and 15 consistent with indeterminate filling pressures. Right Ventricle Normal right ventricular cavity size and systolic function. Atria The left atrium is likely dilated. There is no evidence of interatrial shunt. The right atrium is normal in size. Aortic Valve Normal aortic valve structure and function. There is no aortic valve stenosis. There is mild aortic valve regurgitation. Mitral Valve There is mild anterior and posterior mitral leaflet thickening. There is trace mitral valve regurgitation. There is no mitral valve stenosis. Pulmonic Valve The pulmonic valve is likely normal. Tricuspid Valve Normal tricuspid valve structure. There is trace tricuspid valve regurgitation. The right ventricular systolic pressure is normal. Normal right atrial pressure. Great Vessels The pulmonary artery was not well visualized. There is mild dilatation of the ascending aorta measuring 4.10 cm. Venous The inferior vena cava is normal in size and collapses greater than 50% with inspiration. Pericardium/Pleural There is no evidence of pericardial effusion. Prior Study Comparison Changes noted compared to prior study dated: 02/23/2020. Ascending aorta is further enlarged to 4.1 cm Measurements 2D Linear Measurements IVSd: 1.19 0.6-0.9/0.6-1.0 cm LVIDd: 4.57 3.9-5.3/4.2-5.9 cm LVIDd Index: 2.25 2.4-3.2/2.2-3.1 cm/m2 LVIDs: 3.14 2.0-3.6 cm LVPWd: 1.35 0.7-1.1 cm LA Diam: 3.70 2.7-3.8/3.0-4.0 cm LAIDs Index: 1.82 1.5-2.3 cm/m2 LV Mass: 274.54 67-162/88-224 g LV Mass Index: 135.24 43-95/49-115 g/m2 LVOT Diam: 1.90 3.0+(-)1.3 cm 2D Systolic Function EF 4C: 53.70 >55% EF 2C: 51.60 >55% Mitral Valve MV Pk E: 0.52 MV PK A: 0.72 MV Decel Time: 206.00 E/A: 0.70 E'Lateral: 8.27 E'Medial: 6.64 E/E' Med: 7.80 E/E' Lat: 6.30 PHT: 60.00 MVA PHT: 3.67 Decel Colbert: 2.52 Aortic Valve AoV Pk Dylon: 1.44 AoV Mn Dylon: 0.96 AoV VTI: 0.30 AoV Pk Grad: 8.00 Aov Mn Grad: 4.00 FELIX Cont.VTI: 2.28 LVOT LVOT Pk Dylon: 1.21 LVOT Mn Dylon: 0.83 LVOT VTI: 0.24 LVOT Pk Grad: 6.00 LVOT Mn Grad: 3.00 LVOT Diam: 1.90 LVOT Area: 2.84 Diastolic Function MV Pk E: 0.52 MV Pk A: 0.72 E/A: 0.70 E'Medial: 6.64 E/E' Med: 7.80 E' Laterial: 8.27 E/E' Lat: 6.30 Right Ventricle TAPSE (mm): 20.40 TVS' Dylon: 10.30 Tricuspid Valve TR Pk Dylon: 1.59 TR Pk Grad: 10.00 RA Press: 3.00 RVSP: 13.00 Great Vessels Aorta Sinus of Valsalva: 3.30 2.0-3.5 cm Ao Asc: 4.10 2.1-3.4 cm Pulmonary Valve PV Pk Dylon: 0.94 Peak PV Grad: 4.00 Updated in Other Vendor System with Status of Final Ashwin Seals MD electronically signed on 08/03/2022 12:27:19 PM with status of Final
== END ==
LOC: HO.CARD 14:59
PROVIDERS: PCP Internal Medicine; Visit Provider Nurse Practitioner Family
DX: I25.10 Atherosclerotic heart disease of native coronary artery without angina pectoris (principal); I77.810 Thoracic aortic ectasia
CPT/HCPCS: 93306

== ENCOUNTER 2022-09-04 12:54 | Outpatient (REF) | payer MEDICAID, SELFPAY ==
--- NOTE | ~2022-09-04 | CT_ITS ---
EXAMINATION: CT CHEST WITHOUT CONTRAST CLINICAL INFORMATION: Nonspecific abnormal lung findings. COMPARISON: CT chest 09/06/2021. TECHNIQUE: Multidetector volumetric CT imaging of the chest was done. Axial MIP volume rendering provided. Sagittal and coronal reformatted images were obtained. This CT examination was performed using dose optimization techniques as appropriate, variously including the following: *Automated exposure control *Adjustment of mA and/or kV according to patient size (this includes techniques or standardized protocols for targeted exams where dose is matched to indication/reason for exam; i.e. extremities or head) *Use of iterative reconstruction technique DLP: 165 mGy-cm FINDINGS: SHOE SPRAYER: Expanded lungs with elevated right hemidiaphragm and increased right upper lobe interstitial markings likely chronic atelectasis or scarring. LUNGS: There are postsurgical changes right upper lobe with thick scarring and loss of right lung volume. There are 2 areas of irregular parenchymal opacities/consolidations, similar to previous study 09/06/2021. No additional nodules or mass seen. There is plate-like scarring or atelectasis superior segment right lower lobe. MEDIASTINUM: The thyroid lobes are symmetric and normal. The central trachea and bronchi are widely patent. The heart size and great vessels are normal caliber. Small shotty lymph nodes are seen in the mediastinum. CORONARY ARTERY CALCIFICATION: None visualized on this study. PLEURA: There is no pleural effusion. No pleural mass or thickening. AXILLA: Small shotty lymph nodes are seen in the axilla. UPPER ABDOMEN: Visualized liver, spleen, pancreas and bilateral adrenal glands unremarkable. There is 2.8 cm cyst midpole left kidney. OSSEOUS STRUCTURES: No aggressive lytic or sclerotic process seen. There is mild ventral spondylosis upper and mid dorsal spine. CT/CT chest wo IV con IMPRESSION: 1. Chronic right upper lobe atelectasis with volume loss and elevated right hemidiaphragm. 2. Ill-defined opacities right upper lobe are stable. No new opacities or pulmonary nodules seen. There is plate-like atelectasis superior segment right lower lobe stable. Fleischner guidelines were followed.
== END 2022-09-04 12:55 | disposition home or self-care (01) ==
LOC: HO.CT 12:54
PROVIDERS: PCP Internal Medicine; Visit Provider Internal Medicine Pulmonary Disease
DX: R91.8 Other nonspecific abnormal finding of lung field (principal)
CPT/HCPCS: 71250

== ENCOUNTER → 2022-09-05 10:44 | Outpatient (BNVA) | payer MEDICAID, SELFPAY | PROVIDERS: PCP Internal Medicine; Visit Provider Internal Medicine Pulmonary Disease | DX: R93.89 Abnormal findings on diagnostic imaging of other specified body structures (principal) | CPT/HCPCS: 99212 ==

== ENCOUNTER 2022-09-19 07:54 | Outpatient (REF) | payer MEDICAID, SELFPAY ==
[2022-09-19 11:59] LABS: Alanine Aminotransferase 19 U/L (0-40); Albumin Level 4.1 g/dL (3.5-5.0); Alkaline Phosphatase 67 U/L (39-117); Anion Gap 10 (12-20); Aspartate Amino Transferase 22 U/L (5-37); Bilirubin Total 0.6 mg/dL (0.0-1.0); Blood Urea Nitrogen 18 mg/dL (9-16); Calcium 9.3 mg/dL (8.4-10.2); Carbon Dioxide 31 mmol/L (22-29); Chloride 103 mmol/L (96-108); Cholesterol 226 mg/dL; Estimated Glomerular Filt Rate 53; Glucose Fasting 97 mg/dL (60-99); HDL Cholesterol 38 mg/dL; LDL Cholesterol Calculated 139 mg/dl; Potassium 4.1 mmol/L (3.3-5.1); Sodium 140 mmol/L (135-145); Total Protein 7.4 g/dL (6.5-8.0); Triglycerides 245 mg/dL
== END 2022-09-19 07:55 | disposition home or self-care (01) ==
LOC: HO.HMGCLDS 07:54
PROVIDERS: Internal Medicine; PCP Internal Medicine; Visit Provider Internal Medicine
DX: E78.5 Hyperlipidemia, unspecified (principal); J84.9 Interstitial pulmonary disease, unspecified
CPT/HCPCS: 36415; 80053; 80061

== ENCOUNTER → 2022-09-26 15:45 | Outpatient (BNVA) | payer MEDICAID, SELFPAY | PROVIDERS: PCP Internal Medicine; Referring Provider Internal Medicine; Visit Provider Nurse Practitioner Family | DX: I25.10 Atherosclerotic heart disease of native coronary artery without angina pectoris (principal); I10 Essential (primary) hypertension; E78.00 Pure hypercholesterolemia, unspecified; I77.810 Thoracic aortic ectasia; I25.2 Old myocardial infarction; Z79.82 Long term (current) use of aspirin; Z79.899 Other long term (current) drug therapy | CPT/HCPCS: 99212 ==

== ENCOUNTER → 2022-10-24 10:33 | Outpatient (BNVA) | payer MEDICAID, SELFPAY | PROVIDERS: PCP Internal Medicine; Visit Provider Physician Assistant | DX: M54.2 Cervicalgia (principal) | CPT/HCPCS: 99212 ==

== ENCOUNTER 2022-12-21 16:00 | Outpatient (RCR) | payer MEDICAID, SELFPAY ==
--- NOTE | 2022-11-21 15:49 | MHC.PT.EP ---
[facility] [place] Office [place] Office [place] Office [address] [place] [address] [phone] F: [phone] F: [phone] F: [phone] F: [phone] Physical Therapy Plan of Care Date of Evaluation: Date of Surgery: Diagnosis: Dorsalgia. 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 Pt is deemed an appropriate candidate to receive skilled PT services to address their physical impairments in order to improve their functional ability. Frequency and Duration: The patient will be seen 2 x / wk x 3 weeks. Short Term Goals: Initiate home program. Improve baseline pain with activity to < 3/10; initial: 5/10. Correction Goals: I with home program. Pt will be able to tolerate sitting as long as he'd like given choice of seat; initial: < 1 hour. Pt will no longer have pain with rolling in bed. Pt will improve Cassandra by at least 9 points. Treatment Plan: Modalities to reduce pain, spasms and effusion. Manual therapy to restore motion and function. Therapeutic exercise to improve strength and flexibility. Neuromuscular re-education for posture and balance. Therapeutic activities to return to functional activities of daily living. Electronically signed by: Mike Perkins PT. Please sign and return to therapist. Thank you for your referral.
--- NOTE | 2023-01-24 14:21 | MHC.PT.DC ---
[facility] [place] Office [place] Office [place] Office [address] [place] Bro[place] [address] [phone] F: [phone] F: [phone] F: [phone] F: [phone] Physical Therapy Discharge Report Diagnosis: Dorsalgia. Date of Surgery: Date of Evaluation: 11/21/22 Date of Discharge: 01/24/23 Treatments to Date: 3 Cancellations to Date: No Shows to Date: Discharge Status: Patient Elected to Stop Discharge Summary: Jitendra is being DC as we have not heard from him after being put on a 30 day hold. Electronically signed by: Mike Perkins PT Please sign and return to therapist. Thank you for your referral.
== END 2023-01-24 14:21 | disposition home or self-care (01) ==
LOC: HO.PTCHIC 16:00
PROVIDERS: PCP Internal Medicine; Visit Provider Physician Assistant
DX: M54.9 Dorsalgia, unspecified (principal)
CPT/HCPCS: 97110; 97140; 97161

== ENCOUNTER 2023-01-19 16:06 | Outpatient (REF) | payer OTHER, SELFPAY ==
--- NOTE | ~2023-01-19 | CT_ITS ---
EXAMINATION: CT CHEST WITHOUT CONTRAST CLINICAL INFORMATION: Abnormal findings on diagnostic imaging COMPARISON: CT chest 09/04/2022. TECHNIQUE: Multidetector volumetric CT imaging of the chest was done. Axial MIP volume rendering provided. Sagittal and coronal reformatted images were obtained. This CT examination was performed using dose optimization techniques as appropriate, variously including the following: *Automated exposure control *Adjustment of mA and/or kV according to patient size (this includes techniques or standardized protocols for targeted exams where dose is matched to indication/reason for exam; i.e. extremities or head) *Use of iterative reconstruction technique DLP: 188 mGy-cm FINDINGS: LUNGS: Scarring in the right upper lobe appears stable. Again noted are irregular areas of consolidation in the right upper lobe and right middle lobe which show no significant change compared to 09/04/2022 or 09/06/2021. No new suspicious nodules. MEDIASTINUM: The imaged thyroid gland is unremarkable. No adenopathy. No pericardial effusion. CORONARY ARTERY CALCIFICATION: None visualized on this study. PLEURA: There is no pleural effusion. No pleural mass or thickening. AXILLA: No lymphadenopathy. UPPER ABDOMEN: Unremarkable. OSSEOUS STRUCTURES: Mild degenerative changes in the spine. CT/CT chest wo IV con IMPRESSION: Stable irregular consolidations in the right upper lobe and middle lobe compared to 09/04/2022 and 09/06/2021. Fleischner guidelines were followed.
== END 2023-01-19 16:07 | disposition home or self-care (01) ==
LOC: HO.CT 16:06
PROVIDERS: PCP Internal Medicine; Visit Provider Internal Medicine Pulmonary Disease
DX: R93.89 Abnormal findings on diagnostic imaging of other specified body structures (principal)
CPT/HCPCS: 71250

== ENCOUNTER 2023-01-20 11:09 | Outpatient (REF) | payer OTHER, SELFPAY ==
[2023-01-20 14:19] LABS: Alanine Aminotransferase 18 U/L (0-40); Alkaline Phosphatase 57 U/L (39-117); Anion Gap 12 (12-20); Aspartate Amino Transferase 22 U/L (5-37); Bilirubin Total 0.7 mg/dL (0.0-1.0); Blood Urea Nitrogen 20 mg/dL (9-16); Calcium 9.9 mg/dL (8.4-10.2); Carbon Dioxide 28 mmol/L (22-29); Chloride 104 mmol/L (96-108); Cholesterol 151 mg/dL (<200); Estimated Glomerular Filt Rate > 60; Glucose Fasting 91 mg/dL (60-99); HDL Cholesterol 47 mg/dL (>40); LDL Cholesterol Calculated 84 mg/dL (<100); Potassium 4.2 mmol/L (3.3-5.1); Sodium 140 mmol/L (135-145); Total Protein 7.4 g/dL (6.5-8.0); Triglycerides 104 mg/dL (<150)
[2023-01-20 14:33] LABS: Vitamin D 25-OH Total 149.9 ng/mL (>30)
== END 2023-01-20 11:10 | disposition home or self-care (01) ==
LOC: HO.HMGCLDS 11:09
PROVIDERS: PCP Internal Medicine; Visit Provider Internal Medicine
DX: E78.5 Hyperlipidemia, unspecified (principal); E55.9 Vitamin D deficiency, unspecified
CPT/HCPCS: 36415; 80053; 80061; 82306

== ENCOUNTER 2023-03-08 15:10 | Outpatient (AMB) | payer MEDICAID, SELFPAY ==
--- NOTE | 2023-03-08 15:12 | MHC.OFFVIS ---
Intake Vital Signs 03/08/23 15:13 Height 5 ft 7 in Weight 192 lb 14.472 oz BMI 30.2 BP 108/64 Blood Pressure Location Lt brachial Position Sitting Pulse 61 Pulse Source Doppler Pulse Oximetry (%) 100 Oxygen Delivery Method Room Air Intake Visit Reasons: ct follow up Inspector Advanced Composite Required: Yes Inspector Advanced Composite Name: Sofie Pavel Tripp Allergies Penicillins Allergy (Intermediate, Verified 03/08/23 15:17) swelling Sulfa (Sulfonamide Antibiotics) Allergy (Intermediate, Verified 03/08/23 15:17) itching and rash cephalexin Allergy (Mild, Verified 03/08/23 15:17) swelling HPI ct follow up HPI Details 72-year-old gentleman, lifetime nonsmoker, [place], in the [place], with underlying history of right upper lobe abscess resection in 1984, followed for abnormal CT scan and cough. 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 He denies family history of lung disease.? His PET-CT was negative for increased activity.?He continues to use albuterol MDI with good control of his dyspnea using it not more often than once a day.? He has had recent COVID-19, but he has essentially required to baseline.? After the last office visit he has had a 2nd follow-up CT chest that showed stability of the findings for approximately 18 months. He denies any other pulmonary related concerns or complaints. [facility] Medical History Abnormal x-ray Blurry vision Chronic cough COVID-19 Erectile dysfunction Essential hypertension Hyperlipidemia Left hip pain [place] (myocardial infarction) Opacity of lung on imaging study Pure hypercholesterolemia Right sided sciatica Spitting up blood Surgical History History of back surgery History of lung surgery History of throat surgery Hx of circumcision Hx of colonoscopy Family History Father No problems noted. Mother HTN (hypertension) Family/Other HTN (hypertension) Diabetes Daughter No problems noted. Daughter No problems noted. Son No problems noted. Social History Housing: House Alcohol intake: current Alcohol intake frequency: holidays/special occasions only Patient Tobacco Use Status: Never used Tobacco e-Cigarette/Vaping Use: Never Used Second Hand Smoke Exposure: No service: No Current occupational status: unemployed Cognitive needs: No Hearing needs: No Vision needs: Yes Review of Systems Const Denies daytime sleepiness, Denies excessive sweating, Denies fatigue, Denies fever(s), Denies lethargy, Denies malaise, Denies night sweats, Denies snoring and Denies weight loss Eyes Denies blurry vision and Denies itchy eyes ENT Denies nasal congestion, Denies post nasal drip, Denies sinus pain, Denies sinus pressure and Denies other ( Thrush) Card Denies chest pain, Denies pedal edema, Denies dyspnea, Denies orthopnea and Denies paroxysmal nocturnal dyspnea Resp Denies cough, Denies hemoptysis, Denies excessive phlegm production, Denies dyspnea, Denies snoring and Denies wheezing GI Denies abdominal pain and Denies heartburn Musc Denies myalgias, Denies arthralgias and Denies joint swelling Skin/Breast Denies rash Neuro Denies memory loss and Denies seizure-like activity Psych Denies abnormal sleep pattern, Denies anxiety and Denies memory loss Endo Denies excessive sweating, Denies fatigue and Denies heat intolerance Dontrell/Lymph Denies easy bruising Aller/Immun Denies itchy eyes, Denies seasonal rhinorrhea and Denies wheezing Physical Exam Vital Signs: Last Vital Signs Pulse 61 03/08/23 15:13 BP 108/64 03/08/23 15:13 Pulse Ox 100 03/08/23 15:13 Oxygen Delivery Method Room Air 03/08/23 15:13 BMI result Body Mass Index 30.2 Const General: no acute distress and alert Nutritional Appearance: not obese Orientation/consciousness: Other orientation findings ( oriented) HEENT Head: Yes atraumatic Eyes General: appearance normal, both eyes and all related structures Sclerae: sclerae normal EOM: EOMs intact bilaterally Neck Neck: Yes supple Lymphatic: no lymphadenopathy noted Resp Effort & Inspection: normal respiratory effort and no use of accessory muscles Auscultation: clear to auscultation bilaterally Cardio Rate: regular rate Rhythm: regular rhythm Heart sounds: no gallops, no murmurs and no rubs Skin General skin exam: other ( warm) Extrem General: No clubbing, No cyanosis and No edema Assessment & Plan Assessment & Plan (1) Abnormal CT scan, chest: Code(s): R93.89 - Abnormal findings on diagnostic imaging of other specified body structures Plan: He stable findings on CT chest as compared to will prior once for approximately [address] chest in 12 months, if stable at that time, no further imaging follow-up would be required. Orders: Orders CT chest wo IV con 02/16/24 R93.89 - Abnormal findings on diagnostic imaging of other specified body structures Coding Level of Care Code Est Pt Level 3 (60152) Diagnoses Abnormal CT scan, chest R93.89
[2023-03-08 15:13] VITALS: BP 108/64; PULSE 61; O2SAT 100; BMI 30.2
== END 2023-03-08 15:33 | disposition home or self-care (01) ==
PROVIDERS: PCP Internal Medicine; Visit Provider Internal Medicine Pulmonary Disease
DX: R93.89 Abnormal findings on diagnostic imaging of other specified body structures (principal)
CPT/HCPCS: 99213

== ENCOUNTER → 2023-03-08 15:10 | Outpatient (BNVA) | payer MEDICAID, SELFPAY | PROVIDERS: PCP Internal Medicine; Visit Provider Internal Medicine Pulmonary Disease | DX: R93.89 Abnormal findings on diagnostic imaging of other specified body structures (principal) | CPT/HCPCS: 99212 ==

== ENCOUNTER 2023-03-13 14:00 | Outpatient (AMB) | payer MEDICAID, SELFPAY ==
--- NOTE | 2023-03-13 14:02 | MHC.PC.OV ---
Vital Signs 03/13/23 14:03 Height 5 ft 7 in Weight 189 lb BMI 29.6 BP 120/78 Blood Pressure Location Lt brachial Position Sitting Intake Visit Reasons: BP Intake Note: Patient here for a follow up BP [place] Operator Required: No Accompanied by: Self / Same As Patient Allergies Penicillins Allergy (Intermediate, Verified 03/13/23 14:30) swelling Sulfa (Sulfonamide Antibiotics) Allergy (Intermediate, Verified 03/13/23 14:30) itching and rash cephalexin Allergy (Mild, Verified 03/13/23 14:30) swelling Medication List - Last Reconciled 03/13/23 by Tiny Dasilva MD aspirin (Adult Aspirin Regimen) 81 mg PO DAILY fluticasone propionate 50 mcg/actuation (Flonase Allergy Relief) 1 spray intranasal DAILY PRN 30 days indapamide 1.25 mg PO QAM 90 days losartan 50 mg PO DAILY rosuvastatin 20 mg PO DAILY 90 days Tobacco use date assessed: 05/30/22 Fall risk assessment: No Falls in past year Last assessed Fall Risk: 03/13/23 Dental Screening Dental Screen Date: 03/13/23 Did you have a dental visit in the last 12 months?: Yes Did you have a dental problem in the last 6 months where you did not have access to dental care?: No Was dental information given to patient?: Patient has dentist HPI HPI Comments History of Present Illness Details This is a 72-year-old male with hypertension, pure hypercholesterolemia, mild major depression and coronary artery disease that complains of occasional low back pain secondary to lumbar spondylosis with radiculopathy. Was advised to try a cane as needed. Blood pressure stable. Last cholesterol was well control. Depression has been in remission. On aspirin for secondary prophylaxis for coronary artery disease. Denies any chest pain or shortness of breath. [facility] Medical History Erectile dysfunction Right sided sciatica Left hip pain Chronic cough COVID-19 Abnormal x-ray Opacity of lung on imaging study Spitting up blood Blurry vision Pure hypercholesterolemia Essential hypertension Hyperlipidemia [place] (myocardial infarction) Surgical History History of back surgery History of throat surgery Hx of colonoscopy Hx of circumcision History of lung surgery Family History Father No problems noted. Mother HTN (hypertension) Family/Other HTN (hypertension) Diabetes Daughter No problems noted. Daughter No problems noted. Son No problems noted. Social History Housing: House Alcohol intake: current Alcohol intake frequency: holidays/special occasions only Patient Tobacco Use Status: Never used Tobacco e-Cigarette/Vaping Use: Never Used Second Hand Smoke Exposure: No service: No Current occupational status: unemployed Cognitive needs: No Hearing needs: No Vision needs: Yes Questionnaire Thrive Questionnaire Date Thrive assessed: 05/30/22 MARIUSZ-7 AMB Questionnaire MARIUSZ-7 Date MARIUSZ - 7 assessed: 05/30/22 Source: Developed by Drs. Chris Felix, Melvina Rubio, Himanshu Guerrero and colleagues, with an educational edgar from [employer]. Review of Systems Const All systems reviewed & are unremarkable except as noted in HPI and below Eyes Reports no additional complaints, Denies change in vision and Denies other visual disturbances Card Denies chest pain at rest, Denies chest pain with activity, Denies edema, Denies irregular heart rhythm, Denies claudication, Denies dyspnea, Denies dyspnea on exertion, Denies orthopnea, Denies paroxysmal nocturnal dyspnea and Denies slow heart rate Resp Denies cough, Denies dyspnea and Denies dyspnea on exertion GI Denies abdominal pain, Denies change in bowel habits, Denies excessive flatus, Denies nausea and Denies vomiting Denies urinary hesitancy, Denies urinary incontinence and Denies urinary urgency Musc Denies abnormal gait, Denies atrophy, Denies deformity and Denies limited range of motion Skin/Breast Denies bleeding lesions, Denies changing lesions and Denies rash Neuro Denies abnormal gait and Denies lack of coordination Physical exam (Primary Care) Vital Signs: Last Vital Signs BP 120/78 03/13/23 14:03 BMI result Body Mass Index 29.6 Tobacco/Smoking Status: Tobacco use Status Tobacco use date assessed 05/30/22 03/13/23 14:03 Patient Tobacco Use Status Never used Tobacco 03/13/23 14:03 e-Cigarette/Vaping Use Never Used 03/13/23 14:03 Thrive Assessment: Date of Thrive Assessment Date Thrive assessed 05/30/22 03/13/23 14:03 Eyes General: appearance normal, both eyes and all related structures Eyelids: Yes eyelids normal Conjunctivae: conjunctivae normal Neck Neck: Yes normal visual inspection and Yes supple Resp Effort & Inspection: normal respiratory effort Auscultation: clear to auscultation bilaterally Cardio Jugular venous distension: no JVD Rate: regular rate Rhythm: regular rhythm Heart sounds: S1 normal heart sound present and S2 normal heart sound present Extrem General: Yes full ROM Office Procedures Flu Questionnaire Does the patient have a severe egg allergy?: No Immunizations flu vacc [id number] 6mos up(PF) 60 mcg(15 mcgx4)/0.5 mL IM syringe Performing Provider: Tiny Dasilva MD [place] [facility] [place] [facility] Documented (not given) by: GERMAIN Ricketts on 03/13/23 14:05 Reason Not Given: Received Previously Assessment and Plan Assessment & Plan (1) Mild recurrent major depression: Code(s): F33.0 - Major depressive disorder, recurrent, mild Plan: In remission. (2) CAD (coronary artery disease): Code(s): I25.10 - Atherosclerotic heart disease of mo[place] coronary artery without angina pectoris Plan: Continue aspirin for secondary prophylaxis. (3) Essential hypertension: Code(s): I10 - Essential (primary) hypertension Plan: Contain losartan and lindapamide. Blood pressure goal is equal or less than 130/80. (4) Pure hypercholesterolemia: Code(s): E78.00 - Pure hypercholesterolemia, unspecified Plan: Continue statins. (5) Spondylosis of lumbosacral spine with radiculopathy: Code(s): M47.27 - Other spondylosis with radiculopathy, lumbosacral region Plan: Continue [id number] acetaminophen as needed. Orders: Orders Influenza [id number] Immunization Today Z23 - Encounter for immunization Coding Level of Care Code Est Pt Level 4 (26961) Diagnoses Mild recurrent major depression F33.0 CAD (coronary artery disease) I25.10 Essential hypertension I10 Pure hypercholesterolemia E78.00 Spondylosis of lumbosacral spine with radiculopathy M47.27 Time Spent (min) 22
[2023-03-13 14:03] VITALS: BP 120/78; BMI 29.6
== END 2023-03-13 14:39 | disposition home or self-care (01) ==
PROVIDERS: PCP Internal Medicine; Visit Provider Internal Medicine
DX: F33.0 Major depressive disorder, recurrent, mild (principal); I25.10 Atherosclerotic heart disease of native coronary artery without angina pectoris; I10 Essential (primary) hypertension; E78.00 Pure hypercholesterolemia, unspecified; M47.27 Other spondylosis with radiculopathy, lumbosacral region
CPT/HCPCS: 99214

== ENCOUNTER 2023-06-05 12:04 | Emergency (ER) | payer MEDICAID, SELFPAY ==
--- NOTE | ~2023-06-05 | XR_ITS ---
EXAMINATION: XR CHEST CLINICAL INFORMATION: Chest pain COMPARISON: Prior CT chest 01/19/2023 TECHNIQUE: 2 views of the chest were obtained. FINDINGS: Chronic elevation right hemidiaphragm with pleural blunting. There is minor nodular opacification seen in the right perihilar region which was seen on the prior study. Could reflect a chronic inflammatory process. Consideration should be given to a repeat CT of the chest with direct comparison to the 01/19/2023 exam. Left lung clear. Heart and pulmonary vessels are normal. XR/XR chest 2V IMPRESSION: Irregular areas of nodular airspace opacity right upper lobe and right midlung with elevated right hemidiaphragm. These findings were seen on 01/19/2023 therefore more sensitive evaluation with regards to progression or stability could be done with a follow-up chest CT.
--- NOTE | 2023-06-05 12:06 | ECG_ITS ---
Test Reason : CHEST PAIN Blood Pressure : / mmHG Vent. Rate : 049 BPM Atrial Rate : 049 BPM P-R Int : 204 ms QRS Dur : 090 ms QT Int : 402 ms P-R-T Axes : 047 -26 025 degrees QTc Int : 363 ms Sinus bradycardia Otherwise normal ECG When compared with ECG of 19-JAN-2020 20:11, No significant change was found Referred By: Linda Casas Electronically Signed By:JACKIE RANGEL
[2023-06-05 12:27] VITALS: BP 154/83; PULSE 61; RESP 20; TEMP 36.9; O2SAT 97; BMI 30.3
--- NOTE | 2023-06-05 12:29 | ED_ITS ---
HPI - Chest Pain General Chief Complaint: Chest Pain Stated Complaint: Chest Pain Time Seen by Provider: 06/05/23 21:37 History of Present Illness HPI narrative: The patient is a 72-year-old male who says that he has been having some headaches over the last 3 days. He reports that he has been sleeping poorly. Blood pressure was taken and it seemed elevated and he was advised to come to the emergency room. At that time he also developed some mild chest discomfort. While waiting in the emergency room he has not having any significant symptoms. 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 Related Data Home Medications Medication Instructions Recorded Confirmed aspirin 81 mg tablet,delayed 81 mg PO DAILY 04/11/21 03/13/23 release (Adult Aspirin Regimen) Previous Rx's Medication Instructions Recorded rosuvastatin 20 mg tablet 20 mg PO DAILY 90 days #90 tabs 08/10/22 indapamide 1.25 mg tablet 1.25 mg PO QAM 90 days #90 tabs 01/19/23 fluticasone propionate 50 1 spray intranasal DAILY PRN 03/13/23 mcg/actuation nasal allergy symptoms 30 days #16 grams spray,suspension (Flonase Allergy Relief) losartan 50 mg tablet 50 mg PO DAILY #90 tabs 05/23/23 Allergies Allergy/AdvReac Type Severity Reaction Status Date / Time Penicillins Allergy Intermediate swelling Verified 06/05/23 12:31 Sulfa (Sulfonamide Allergy Intermediate itching Verified 06/05/23 12:31 Antibiotics) and rash cephalexin Allergy Mild swelling Verified 06/05/23 12:31 PMFSH Past Medical History Medical History Erectile dysfunction Right sided sciatica Left hip pain Chronic cough COVID-19 Abnormal x-ray Opacity of lung on imaging study Spitting up blood Blurry vision Pure hypercholesterolemia Essential hypertension Hyperlipidemia [place] (myocardial infarction) Surgical History History of back surgery History of throat surgery Hx of colonoscopy Hx of circumcision History of lung surgery Family History Family History Father No problems noted. Mother HTN (hypertension) Family/Other HTN (hypertension) Diabetes Daughter No problems noted. Daughter No problems noted. Son No problems noted. Social History Social History Housing: House Alcohol intake: current Alcohol intake frequency: holidays/special occasions only Patient Tobacco Use Status: Never used Tobacco e-Cigarette/Vaping Use: Never Used Second Hand Smoke Exposure: No Advance Directives: No Advance Directives Information Provided: No service: No Current occupational status: unemployed Cognitive needs: No Hearing needs: No Vision needs: Yes Physical Exam 2 Vital Signs: Vital Signs: Last Vital Signs Temp 97.1 F 06/05/23 21:34 Pulse 59 06/05/23 21:34 Resp 17 06/05/23 21:34 BP 136/78 06/05/23 22:15 Pulse Ox 100 06/05/23 21:34 O2 Del Method Room Air 06/05/23 21:34 BMI result Body Mass Index 30.3 Const: Other: The patient is a muscular 72-year-old who looks as though he is in generally good health. He does not appear acutely ill or toxic in any way. He is cheerful and pleasant. HEENT: Other: Face is symmetrical. Mucous membranes moist. Eyes: Other: Pupils are round equal, conjunctivae clear, extraocular movements intact Neck: Other: Neck is supple, no JVD Resp: Effort & Inspection: normal respiratory effort Auscultation: clear to auscultation bilaterally Cardio: Rate: regular rate Rhythm: regular rhythm Heart sounds: S1 normal heart sound present and S2 normal heart sound present GI: Other: Abdomen is soft and nontender Skin: Other: Skin is dry and unremarkable. Neuro: Other: The patient is awake, alert, pleasant, cooperative. Cranial nerves are grossly intact. His face is symmetrical. Speech is clear. He moves his extremities normally with normal strength and sensation and coordination. He is grossly neurologically intact. His neck is entirely supple. Extrem: Other: No peripheral edema. No calf swelling or tenderness. Course Course Course Narrative: This is a rapid medical exam. Deferred additional HPI, ROS, PE to primary provider. 72 yo male with history of CAD, HTN, HLD here with chest pain described as tightness, headache, high blood pressure beginning today. Will obtain labs, EKG, CXR VSS Medications Administered Discontinued Medications Generic Name Dose Route Start Last Admin Trade Name Freq PRN Reason Stop Dose Admin Acetaminophen 975 mg 06/05/23 22:06 06/05/23 22:15 Acetaminophen 325 Mg Tablet PO 06/05/23 22:07 975 mg ONCE ONE Administration Medical Decision Making Medical Decision Making [facility] Narrative: The patient is a very pleasant 72-year-old who describes having had a mild headache recently. He had an elevated blood pressure reading as an outpatient. He also describes having some very mild chest discomfort. Overall my suspicion process of any significance is low. He has 2 normal troponins. His EKG shows sinus bradycardia and is similar to previous EKGs. His blood pressure was 154/83 at triage. It came down to 136/78 spontaneously. I think it may be discharged to follow up with his regular doctor. Lab Data 06/05/23 13:43 06/05/23 13:43 Labs: Lab Results 06/05/23 06/05/23 Range/Units 13:43 17:40 WBC 4.0 L (4.8-10.8) X10*3/uL RBC 5.42 (4.60-5.80) X10*6/uL Hgb 13.3 L (14.0-18.0) g/dl Hct 42.6 (42.0-52.0) % MCV 78.6 L (80.0-98.0) fL MCH 24.5 L (27.0-33.0) pg MCHC 31.2 (31.0-36.0) g/dl RDW 14.6 (11.0-16.0) % Plt Count 198 (160-400) X10*3/uL MPV 9.0 L (9.4-12.4) fL Immature Gran % (Auto) 0.2 (0.0-0.4) % Neut % (Auto) 34.3 L (45-73) % Lymph % (Auto) 50.7 H (20-40) % [place] % (Auto) 11.4 H (2-11) % Eos % (Auto) 2.7 (0-4) % Baso % (Auto) 0.7 (0-2) % Lymph # (Auto) 2.1 (1.2-4.9) X10*3/uL [place] # (Auto) 0.5 (0.1-1.2) X10*3/uL Eos # (Auto) 0.1 (0.0-0.4) X10*3/uL Baso # (Auto) 0.0 (0.0-0.2) X10*3/uL Abs Immat Gran (auto) 0.01 (0.00-0.03) X10*3/uL Absolute Neuts (auto) 1.4 L (2.0-8.3) x10*3/uL Absolute Nucleated RBC 0.000 (0.0-0.012) X10*3/uL Nucleated RBC % (auto) 0.0 (0.0-0.2) /100WBC Sodium 140 (135-145) mmol/L Potassium 4.4 (3.3-5.1) mmol/L Chloride 102 (96-108) mmol/L Carbon Dioxide 30 H (22-29) mmol/L Anion Gap 12 (12-20) BUN 14 (9-16) mg/dL Creatinine 1.13 (0.5-1.4) mg/dL Estim Creat Clear Calc 62.4 Estimated GFR > 60 Random Glucose 93 (60-115) mg/dL Calcium 9.7 (8.4-10.2) mg/dL Total Bilirubin 0.7 (0.0-1.0) mg/dL Direct Bilirubin 0.2 (0.0-0.5) mg/dL AST 30 (5-37) U/L ALT 24 (0-40) U/L Alkaline Phosphatase 65 (39-117) U/L Troponin I High Sens 7.3 8.3 (<3.5-35.0) ng/L Total Protein 7.9 (6.5-8.0) g/dL Albumin 4.3 (3.5-5.0) g/dL Discharge Plan Discharge Clinical Impression: Headache, Chest discomfort, Hypertension Patient Disposition: Home, Self-Care Additional Instructions: Your testing in the emergency room today is reassuring. You may use acetaminophen (Tylenol) as needed for headache. Please continue your regular medications. Please contact your regular doctor's office tomorrow morning to make a follow-up appointment in the next couple of weeks to discuss these symptoms further. If at any point you are significantly worse please return to the emergency room. Prescriptions: No Action rosuvastatin 20 mg tablet 20 mg PO DAILY 90 Days Qty: 90 3RF indapamide 1.25 mg tablet 1.25 mg PO QAM 90 Days Qty: 90 3RF fluticasone propionate [Flonase Allergy Relief] 50 mcg/actuation spray,suspension 1 spray intranasal DAILY PRN (Reason: allergy symptoms) 30 Days Qty: 16 1RF Rx Instructions: administer into each nostril losartan 50 mg tablet 50 mg PO DAILY Qty: 90 0RF aspirin [Adult Aspirin Regimen] 81 mg tablet,delayed release (DR/EC) 81 mg PO DAILY Referrals: Tiny Waite MD [Primary Care Provider] - (headaches, chest pain, hypertension) Interventions: ED Discharge Assessment Last Done: 06/05/23 22:18 Discharge Date/Time: 06/05/23 22:19
[2023-06-05 13:48] LABS: Basophils Percent Auto 0.7 % (0-2); Eosinophils Absolute Auto 0.1 X10*3/uL (0.0-0.4); Eosinophils Percent Auto 2.7 % (0-4); Hematocrit 42.6 % (42.0-52.0); Hemoglobin 13.3 g/dl (14.0-18.0); Imm Gran Abs Auto 0.01 X10*3/uL (0.00-0.03); Imm Gran Pct Auto 0.2 % (0.0-0.4); Lymphocytes Absolute Auto 2.1 X10*3/uL (1.2-4.9); Lymphocytes Percent Auto 50.7 % (20-40); MANUAL DIFF FLAG NO; Mean Corpuscular HGB Conc 31.2 g/dl (31.0-36.0); Mean Corpuscular Hemoglobin 24.5 pg (27.0-33.0); Mean Corpuscular Volume 78.6 fL (80.0-98.0); Monocytes Absolute Auto 0.5 X10*3/uL (0.1-1.2); Monocytes Percent Auto 11.4 % (2-11); Neutrophils Absolute Auto 1.4 x10*3/uL (2.0-8.3); Neutrophils Percent Auto 34.3 % (45-73); Platelet Count 198 X10*3/uL (160-400); Red Blood Count 5.42 X10*6/uL (4.60-5.80); Red Cell Distribution Width 14.6 % (11.0-16.0)
[2023-06-05 14:12] LABS: Alanine Aminotransferase 24 U/L (0-40); Albumin Level 4.3 g/dL (3.5-5.0); Alkaline Phosphatase 65 U/L (39-117); Anion Gap 12 (12-20); Aspartate Amino Transferase 30 U/L (5-37); Bilirubin Direct 0.2 mg/dL (0.0-0.5); Bilirubin Total 0.7 mg/dL (0.0-1.0); Blood Urea Nitrogen 14 mg/dL (9-16); Calcium 9.7 mg/dL (8.4-10.2); Carbon Dioxide 30 mmol/L (22-29); Chloride 102 mmol/L (96-108); Creatinine Clr Calc Pharmacy 62.4; Estimated Glomerular Filt Rate > 60; Glucose Random 93 mg/dL (60-115); Potassium 4.4 mmol/L (3.3-5.1); Sodium 140 mmol/L (135-145); Total Protein 7.9 g/dL (6.5-8.0)
[2023-06-05 14:19] LABS: Troponin-I High Sensitivity 7.3 ng/L (<3.5-35.0)
[2023-06-05 18:26] LABS: Troponin-I High Sensitivity 8.3 ng/L (<3.5-35.0)
[2023-06-05 21:34] VITALS: BP 159/80; PULSE 59; RESP 17; TEMP 36.2; O2SAT 100
[2023-06-05 22:15] VITALS: BP 136/78
[2023-06-05] MEDS: Acetaminophen 325 MG TABLET 975 MG PO (22:15)
== END 2023-06-05 22:19 | disposition home or self-care (01) ==
PROVIDERS: Nurse Practitioner Family; Emergency Provider Emergency Medicine; PCP Internal Medicine
DX: R51.9 Headache, unspecified (principal); R07.9 Chest pain, unspecified; I10 Essential (primary) hypertension; G47.9 Sleep disorder, unspecified; I25.2 Old myocardial infarction; E78.5 Hyperlipidemia, unspecified
CPT/HCPCS: 36415; 71046; 80048; 80076; 84484; 85025; 93005; 99283; 99284

== ENCOUNTER → 2023-06-05 12:06 | Outpatient (BNV) | payer MEDICAID, SELFPAY | PROVIDERS: PCP Internal Medicine; Visit Provider Internal Medicine | DX: R07.9 Chest pain, unspecified (principal) | CPT/HCPCS: 93010 ==

== ENCOUNTER 2023-07-11 15:27 | Outpatient (AMB) | payer MEDICAID, SELFPAY ==
[2023-07-11 15:28] VITALS: BP 112/62; PULSE 66; O2SAT 97; BMI 30.4
--- NOTE | 2023-07-11 15:28 | A.OFFVIS_ITS ---
Intake Vital Signs 07/11/23 15:28 Height 5 ft 7 in Weight 194 lb 0.108 oz BMI 30.4 BP 112/62 Blood Pressure Location Rt brachial Position Sitting Pulse 66 Pulse Source Doppler Pulse Oximetry (%) 97 Oxygen Delivery Method Room Air Intake Visit Reasons: cough : 4 month f/u Binder Technician Required: Yes Binder Technician Name: Sofie Pavel Tripp Allergies Penicillins Allergy (Intermediate, Verified 06/05/23 12:31) swelling Sulfa (Sulfonamide Antibiotics) Allergy (Intermediate, Verified 06/05/23 12:31) itching and rash cephalexin Allergy (Mild, Verified 06/05/23 12:31) swelling HPI cough : 4 month f/u HPI Details 72-year-old gentleman, lifetime nonsmoke r, [place], in the [place] since [place], with underlying history of right upper lobe abscess resection in 1984, followed for abnormal CT scan and cough. 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 He denies family history of lung disease.? His PET-CT was negative for increased activity.?He continues to use albuterol MDI with good control of his dyspnea using it not more often than once a day.? He has had recent COVID-19, but he has essentially required to baseline.?He had a 2nd follow-up CT chest that showed stability of the findings for approximately 18 months. He denies any other pulmonary related concerns or complaints. [facility] Medical History Erectile dysfunction Right sided sciatica Left hip pain Chronic cough COVID-19 Abnormal x-ray Opacity of lung on imaging study Spitting up blood Blurry vision Pure hypercholesterolemia Essential hypertension Hyperlipidemia [place] (myocardial infarction) Surgical History History of back surgery History of throat surgery Hx of colonoscopy Hx of circumcision History of lung surgery Family History Father No problems noted. Mother HTN (hypertension) Family/Other HTN (hypertension) Diabetes Daughter No problems noted. Daughter No problems noted. Son No problems noted. Social History (Reviewed 07/11/23 @ 15:32 by ANGEL Mead Housing: House Alcohol intake: current Alcohol intake frequency: holidays/special occasions only Patient Tobacco Use Status: Never used Tobacco e-Cigarette/Vaping Use: Never Used Second Hand Smoke Exposure: No service: No Current occupational status: unemployed Cognitive needs: No Hearing needs: No Vision needs: Yes Review of Systems Const Denies daytime sleepiness, Denies excessive sweating, Denies fatigue, Denies fever(s), Denies lethargy, Denies malaise, Denies night sweats, Denies snoring and Denies weight loss Eyes Denies blurry vision and Denies itchy eyes ENT Denies nasal congestion, Denies post nasal drip, Denies sinus pain, Denies sinus pressure and Denies other ( Thrush) Card Denies chest pain, Denies pedal edema, Denies dyspnea, Denies orthopnea and Denies paroxysmal nocturnal dyspnea Resp Denies cough, Denies hemoptysis, Denies excessive phlegm production, Denies dysp [place], Denies snoring and Denies wheezing GI Denies abdominal pain and Denies heartburn Musc Denies myalgias, Denies arthralgias and Denies joint swelling Skin/Breast Denies rash Neuro Denies memory loss and Denies seizure-like activity Psych Denies abnormal sleep pattern, Denies anxiety and Denies memory loss Endo Denies excessive sweating, Denies fatigue and Denies heat intolerance [place]/Lymph Denies easy bruising Aller/Immun Denies itchy eyes, Denies seasonal rhinorrhea and Denies wheezing Physical Exam Vital Signs: Last Vital Signs Pulse 66 07/11/23 15:28 BP 112/62 07/11/23 15:28 Pulse Ox 97 07/11/23 15:28 Oxygen Delivery Method Room Air 07/11/23 15:28 BMI result Body Mass Index 30.4 Const General: no acute distress and alert Nutritional Appearance: not obese Orientation/consciousness: Other orientation findings ( oriented) HEENT Head: Yes atraumatic Eyes General: appearance normal, both eyes and all related structures Sclerae: sclerae normal EOM: EOMs intact bilaterally Neck Neck: Yes supple Lymphatic: no lymphadenopathy noted Resp Effort & Inspection: normal respiratory effort and no use of accessory muscles Auscultation: clear to auscultation bilaterally Cardio Rate: regular rate Rhythm: regular rhythm Heart sounds: no gallops, no murmurs and no rubs Skin General skin exam: other ( warm) Extrem General: No clubbing, No cyanosis and No edema Assessment & Plan Assessment & Plan (1) Abnormal CT scan, chest: Code(s): R93.89 - Abnormal findings on diagnostic imaging of other specified body structures Plan: Stable parenchymal scarring. Will repeat CT chest in February of 2024, if stable at that time, then no further imaging would be required. (2) Reactive airway disease: Code(s): J45.909 - Unspecified asthma, uncomplicated Plan: Mild reactive airway disease well controlled on as needed albuterol MDI. Continue current regimen. Medications: New albuterol sulfate 90 mcg/actuation 2 puffs inhalation Q4-6H 30 days PRN 1 ea 6RF shortness of breath or wheezing Coding Level of Care Code Est Pt Level 4 (27034) Diagnoses Abnormal CT scan, chest R93.89 Reactive airway disease J45.909
== END 2023-07-11 15:41 | disposition home or self-care (01) ==
PROVIDERS: PCP Internal Medicine; Visit Provider Internal Medicine Pulmonary Disease
DX: R93.89 Abnormal findings on diagnostic imaging of other specified body structures (principal); J45.909 Unspecified asthma, uncomplicated
CPT/HCPCS: 99214

== ENCOUNTER → 2023-07-11 15:27 | Outpatient (BNVA) | payer MEDICAID, SELFPAY | PROVIDERS: PCP Internal Medicine; Visit Provider Internal Medicine Pulmonary Disease | DX: J45.909 Unspecified asthma, uncomplicated (principal); R93.89 Abnormal findings on diagnostic imaging of other specified body structures; Z57.2 Occupational exposure to dust | CPT/HCPCS: 99212 ==

== ENCOUNTER 2023-09-13 15:48 | Outpatient (AMB) | payer MEDICAID, SELFPAY ==
--- NOTE | 2023-09-13 15:50 | MHC.PC.OV ---
Vital Signs 09/13/23 15:54 Height 5 ft 7 in Weight 196 lb BMI 30.7 BP 130/80 Blood Pressure Location Lt brachial Position Sitting Intake Visit Reasons: Annual Exam Intake Note: Patient here for a an annual physical exam Ultrasonographer Required: No Accompanied by: Self / Same As Patient Allergies Penicillins Allergy (Intermediate, Verified 09/13/23 16:11) swelling Sulfa (Sulfonamide Antibiotics) Allergy (Intermediate, Verified 09/13/23 16:11) itching and rash cephalexin Allergy (Mild, Verified 09/13/23 16:11) swelling Medication List - Last Reconciled 09/13/23 by Tiny Dasilva MD albuterol sulfate 90 mcg/actuation 2 puffs inhalation Q4-6H PRN 30 days aspirin (Adult Aspirin Regimen) 81 mg PO DAILY blood pressure monitor As directed fluticasone propionate 50 mcg/actuation (Flonase Allergy Relief) 1 spray intranasal DAILY PRN 30 days indapamide 1.25 mg PO QAM 90 days losartan 50 mg PO DAILY rosuvastatin 20 mg PO DAILY 90 days Tobacco use date assessed: 09/13/23 Fall risk assessment: No Falls in past year Last assessed Fall Risk: 09/13/23 Dental Screening Dental Screen Date: 09/13/23 Did you have a dental visit in the last 12 months?: Yes Did you have a dental problem in the last 6 months where you did not have access to dental care?: No Was dental information given to patient?: Patient has dentist HPI HPI Comments History of Present Illness Details This is a 72-year-old male with ascending aortic dilation and interstitial lung disease that comes for his physical exam. Ascending aortic dilation has been stable and follow by ultrasound. Interstitial lung disease is follow by pulmonology and has also been stable. Last colonoscopy was few years ago and was normal. No chest pain or shortness of breath. [facility] Medical History (Updated 09/13/23 @ 18:26 by Tiny Dasilva MD) Mild recurrent major depression Erectile dysfunction Right sided sciatica Left hip pain Chronic cough COVID-19 Abnormal x-ray Opacity of lung on imaging study Spitting up blood Blurry vision Pure hypercholesterolemia Essential hypertension Hyperlipidemia [place] (myocardial infarction) Surgical History History of back surgery History of throat surgery Hx of colonoscopy Hx of circumcision History of lung surgery Family History Father No problems noted. Mother HTN (hypertension) Family/Other HTN (hypertension) Diabetes Daughter No problems noted. Daughter No problems noted. Son No problems noted. Social History Housing: House Alcohol intake: current Alcohol intake frequency: holidays/special occasions only Patient Tobacco Use Status: Never used Tobacco e-Cigarette/Vaping Use: Never Used Second Hand Smoke Exposure: No service: No Current occupational status: unemployed Cognitive needs: No Hearing needs: No Vision needs: Yes Questionnaire PHQ-9 Over the last 2 weeks, how often have you been bothered by any of the following problems? 1. Little interest or pleasure in doing things: not at all 2. Feeling down, depressed, or hopeless: not at all 3. Trouble falling or staying asleep, or sleeping too much: not at all 4. Feeling tired or having little energy: not at all 5. Poor appetite or overeating: not at all 6. Feeling bad about yourself - or that you are a failure or have let yourself or your family down: not at all 7. Trouble concentrating on things, such as reading the newspaper or watching television: not at all 8. Moving or speaking so slowly that other people could have noticed. Or the opposite - being so fidgety or restless that you have been moving around a lot more than usual: not at all 9. Thoughts that you would be better off or of hurting yourself in some way: not at all Total score: 0 Depression Screening Interpretation: Negative Depression Screening Done: Yes 32375 - PHQ-9 Billing: Yes Source: Developed by Drs. Chris Felix, Melvina Rubio, Himanshu Guerrero and colleagues, with an educational edgar from [employer]. Thrive Questionnaire Date Thrive assessed: 09/13/23 I am a: Patient What is your living situation today?: I have a steady place to live Within the past 12 months, did the food you bought not last and you didn't have the money to get more?: Never true Within the past 12 months, did you worry whether your food would run out before you got money to buy more?: Never true Do you have trouble paying for medicines?: No Do you have trouble getting transportation to medical appointments?: No Do you have trouble paying your heating and electricity bill?: No Do you have trouble taking care of your child, family member or friend?: No Do you have trouble with day-to-day activities such as bathing, preparing meals, shopping, managing finances, etc.?: No Are you currently unemployed and looking for a job?: No Are you interested in more education?: No Please select the resources that you would like help with: None Currently or been in a relationship where the following occur: no concerns reported THRIVE Score: 0 AUDIT C Alcohol Use Questionnaire (AUDIT-C) 1. How often do you have a drink containing alcohol?: Monthly or less 2. How many drinks containing alcohol do you have on a typical day when you are drinking?: 1 or 2 3. How often do you have six or more drinks on one occasion?: Never Total Score: 1 MARIUSZ-7 AMB Questionnaire MARIUSZ-7 Date MARIUSZ - 7 assessed: 09/13/23 Feeling nervous, anxious, or on edge: 0 = Not at all Not being able to stop or control worryin = Not at all Worrying too much about different things: 0 = Not at all Trouble relaxin = Not at all Being so restless that it is hard to sit still: 0 = Not at all Becoming easily annoyed or irritable: 0 = Not at all Feeling afraid as if something awful might happen: 0 = Not at all Total MARIUSZ-7 score (0-4 normal; 5-9 mild; 10-14 moderate; 15-21 severe): 0 Source: Developed by Drs. Chris Felix, Melvina Rubio, Himanshu Guerrero and colleagues, with an educational edgar from [employer]. MARIUSZ-7 Assessment Billing MARIUSZ-7 Assessment Tool: MARIUSZ-7 Assessment 69239 Review of Systems Const All systems reviewed & are unremarkable except as noted in HPI and below Eyes Reports no additional complaints, Denies change in vision and Denies other visual disturbances Card Denies chest pain at rest, Denies chest pain with activity, Denies edema, Denies irregular heart rhythm, Denies claudication, Denies dyspnea, Denies dyspnea on exertion, Denies orthopnea, Denies paroxysmal nocturnal dyspnea and Denies slow heart rate Resp Denies cough, Denies dyspnea and Denies dyspnea on exertion GI Denies abdominal pain, Denies change in bowel habits, Denies excessive flatus, Denies nausea and Denies vomiting Physical exam (Primary Care) Vital Signs: Last Vital Signs BP 130/80 09/13/23 15:54 BMI result Body Mass Index 30.7 Tobacco/Smoking Status: Tobacco use Status Tobacco use date assessed 09/13/23 09/13/23 15:57 Patient Tobacco Use Status Never used Tobacco 09/13/23 15:57 e-Cigarette/Vaping Use Never Used 09/13/23 15:57 PHQ-9: PHQ-9 Score PHQ-9: Total score 0 09/13/23 16:15 Depression Screening Interpretation: Negative Thrive Assessment: Date of Thrive Assessment Date Thrive assessed 09/13/23 09/13/23 15:57 Currently or been in a relationship where the following occur: no concerns reported Const Orientation/consciousness: patient oriented x3 [facility] Head: Yes normal to inspection, Yes normocephalic and Yes atraumatic Ears: external ears normal Eyes General: appearance normal, both eyes and all related structures Eyelids: Yes eyelids normal Conjunctivae: conjunctivae normal Neck Neck: Yes normal visual inspection and Yes supple Resp Effort & Inspection: normal respiratory effort Auscultation: clear to auscultation bilaterally Cardio Jugular venous distension: no JVD Rate: regular rate Rhythm: regular rhythm Heart sounds: S1 normal heart sound present and S2 normal heart sound present GI Inspection: Yes normal to inspection Palpation (GI): Soft to palpation and nontender Auscultation: normal bowel sounds Skin General skin exam: no rashes or lesions noted Neuro General: patient oriented x3 and no focal motor deficits Extrem General: Yes full ROM Psych Appearance: grossly normal Assessment and Plan Assessment & Plan (1) Physical exam: Code(s): Z00.00 - Encounter for general adult medical examination without abnormal findings Plan: Repeat in a year. (2) Mild ascending aorta dilatation: Comment: 3.9 cm on echo 02/23/2020 Code(s): I77.810 - Thoracic aortic ectasia Plan: Follow-up with ultrasound. (3) ILD (interstitial lung disease): Code(s): J84.9 - Interstitial pulmonary disease, unspecified Plan: Follow-up with pulmonology. Orders: Orders PSA,Total (Free>4and<10) Today Z12.5 - Encounter for screening for malignant neoplasm of prostate Lipid Panel Today E78.5 - Hyperlipidemia, unspecified Comprehensive [place]. Panel Fast Today Z00.00 - Encounter for general adult medical examination without abnormal findings ECG 12 lead EKG Today R07.9 - Chest pain, unspecified UA CC w/rflx Micro + Cult Today R30.0 - Dysuria Coding Level of Care Code Est Pt Prev Care >65y(10449) Diagnoses Physical exam Z00.00 Mild ascending aorta dilatation I77.810 ILD (interstitial lung disease) J84.9 Additional Codes MARIUSZ-7 Assessment Billing - MARIUSZ-7 Assessment Tool: MARIUSZ-7 Assessment 84258 ([id number]) Time Spent (min) 31
[2023-09-13 15:54] VITALS: BP 130/80; BMI 30.7
== END 2023-09-13 16:28 | disposition home or self-care (01) ==
PROVIDERS: PCP Internal Medicine; Visit Provider Internal Medicine
DX: Z00.00 Encounter for general adult medical examination without abnormal findings (principal); I77.810 Thoracic aortic ectasia; J84.9 Interstitial pulmonary disease, unspecified
CPT/HCPCS: 99397

== ENCOUNTER 2023-09-18 06:19 | Outpatient (REF) | payer MEDICAID, SELFPAY ==
[2023-09-18 10:30] LABS: Appearance Urine Clear; Color Urine Yellow; Glucose Urine UA Negative (Negative); Leukocyte Esterase Urine Negative (Negative); Nitrite Urine Negative (Negative); PH 5.5 (5.0-9.0); Specific Gravity - Urine 1.015 (1.005-1.025); UMIC TRIGGER UACC YES; Urine Blood Small (1+) (Negative); Urine Ketones Negative (Negative); Urine Protein Negative (Neg-Trace)
[2023-09-18 10:42] LABS: Bacteria Urine None Seen (None Seen); Hyaline Casts Urine 0-2 /LPF (0-2); Squamous Epithelial Cell Urine 0-2 /HPF (0-2); WBC Urine 0-5 /HPF (0-5)
[2023-09-18 11:01] LABS: Alanine Aminotransferase 16 U/L (0-40); Albumin Level 3.7 g/dL (3.5-5.0); Alkaline Phosphatase 59 U/L (39-117); Anion Gap 13 (12-20); Aspartate Amino Transferase 22 U/L (5-37); Bilirubin Total 0.5 mg/dL (0.0-1.0); Blood Urea Nitrogen 22 mg/dL (9-16); Carbon Dioxide 25 mmol/L (22-29); Chloride 106 mmol/L (96-108); Cholesterol 178 mg/dL (<200); Estimated Glomerular Filt Rate 58; Glucose Fasting 93 mg/dL (60-99); HDL Cholesterol 38 mg/dL (>40); LDL Cholesterol Calculated 103 mg/dL (<100); Potassium 3.9 mmol/L (3.3-5.1); Sodium 140 mmol/L (135-145); Total Protein 6.8 g/dL (6.5-8.0); Triglycerides 185 mg/dL (<150)
[2023-09-18 11:12] LABS: PSA,Total (Free>4and<10) 1.35 ng/mL (0.00-4.00)
== END 2023-09-18 06:20 | disposition home or self-care (01) ==
LOC: HO.HMGCLDS 06:19
PROVIDERS: PCP Internal Medicine; Visit Provider Internal Medicine
DX: Z00.00 Encounter for general adult medical examination without abnormal findings (principal); E78.5 Hyperlipidemia, unspecified; R30.0 Dysuria; Z12.5 Encounter for screening for malignant neoplasm of prostate
CPT/HCPCS: 36415; 80053; 80061; 81001; 84153

== ENCOUNTER → 2023-09-25 15:25 | Outpatient (REF) | payer MEDICAID, SELFPAY ==
--- NOTE | 2023-09-25 15:29 | ECG_ITS ---
Test Reason : CHEST PAIN Blood Pressure : / mmHG Vent. Rate : 058 BPM Atrial Rate : 058 BPM P-R Int : 178 ms QRS Dur : 086 ms QT Int : 394 ms P-R-T Axes : 049 -12 017 degrees QTc Int : 386 ms Sinus bradycardia Otherwise normal ECG When compared with ECG of 05-JUN-2023 12:14, No significant change was found Referred By: Tiny Dasilva Electronically Signed By:JACKIE RANGEL
== END ==
LOC: HO.CARD 15:25
PROVIDERS: PCP Internal Medicine; Visit Provider Internal Medicine
DX: R07.9 Chest pain, unspecified (principal)
CPT/HCPCS: 93005

== ENCOUNTER → 2023-09-25 15:29 | Outpatient (BNV) | payer MEDICAID, SELFPAY | PROVIDERS: PCP Internal Medicine; Visit Provider Internal Medicine | DX: R07.9 Chest pain, unspecified (principal); R94.31 Abnormal electrocardiogram [ECG] [EKG] | CPT/HCPCS: 93010 ==

== ENCOUNTER 2023-10-10 14:46 | Outpatient (AMB) | payer MEDICAID, SELFPAY ==
[2023-10-10 14:47] VITALS: BP 118/60; PULSE 62; O2SAT 98; BMI 29.6
--- NOTE | 2023-10-10 14:47 | A.OFFVIS_ITS ---
Vital Signs 10/10/23 14:47 Height 5 ft 7 in Weight 189 lb 2.506 oz BMI 29.6 BP 118/60 Blood Pressure Location Lt brachial Position Sitting Pulse 62 Pulse Source Pulse Oximeter Pulse Oximetry (%) 98 Oxygen Delivery Method Room Air Intake Visit Reasons: 1 yr f/up Digital Media Representative Required: Yes Digital Media Representative Name: [id number]/joon/puerto rican Accompanied by: Self / Same As Patient Allergies Penicillins Allergy (Intermediate, Verified 09/13/23 16:11) swelling Sulfa (Sulfonamide Antibiotics) Allergy (Intermediate, Verified 09/13/23 16:11) itching and rash cephalexin Allergy (Mild, Verified 09/13/23 16:11) swelling Medication List - Last Reconciled 10/10/23 by Peter Raphael MD albuterol sulfate 90 mcg/actuation 2 puffs inhalation Q4-6H PRN 30 days aspirin (Adult Aspirin Regimen) 81 mg PO DAILY blood pressure monitor As directed fluticasone propionate 50 mcg/actuation (Flonase Allergy Relief) 1 spray intranasal DAILY PRN 30 days indapamide 1.25 mg PO QAM 90 days losartan 50 mg PO DAILY rosuvastatin 20 mg PO DAILY 90 days HPI Comments Details: 72-year-old gentleman here for follow-up. He has background history of reported [place] while in [place] where he had PCI done. He had chest pain episode last year and was admitted at [facility] when he underwent exercise stress testing. Stress test was essentially normal. He had hypertensive response to exercise. His blood pressure has been well controlled with amlodipine. He is denying any chest pain or shortness of breath. He has been taking baby aspirin without any issues. He was previously on atorvastatin 40 mg. It appears he developed muscle aches and his atorvastatin was discontinued. I started him on Crestor on Sunday and Sunday which was changed to daily as he tolerated. It appears he had low back pain which was later diagnosed to be related to musculoskeletal/nerve pain. With his back pain he has stopped his Crestor. He is denying any symmetric arm or leg pain. Denying any chest pain or shortness of breath. After discussion he was started on Crestor. 10/10/2023: He is here for follow-up. He is denying any chest discomfort shortness of breath. He has been taking rosuvastatin 20 mg daily without any side effects. Blood pressure is well controlled. No dizziness or lightheadedness. [facility] Medical History (Updated 09/13/23 @ 18:26 by Tiny Dasilva MD) Mild recurrent major depression Erectile dysfunction Right sided sciatica Left hip pain Chronic cough COVID-19 Abnormal x-ray Opacity of lung on imaging study Spitting up blood Blurry vision Pure hypercholesterolemia Essential hypertension Hyperlipidemia [place] (myocardial infarction) Surgical History History of back surgery History of throat surgery Hx of colonoscopy Hx of circumcision History of lung surgery Family History Father No problems noted. Mother HTN (hypertension) Family/Other HTN (hypertension) Diabetes Daughter No problems noted. Daughter No problems noted. Son No problems noted. Social History Housing: House Alcohol intake: current Alcohol intake frequency: holidays/special occasions only Patient Tobacco Use Status: Never used Tobacco e-Cigarette/Vaping Use: Never Used Second Hand Smoke Exposure: No service: No Current occupational status: unemployed Cognitive needs: No Hearing needs: No Vision needs: Yes Review of Systems Const Denies chills, Denies fatigue, Denies fever(s), Denies frequent falls, Denies weakness, Denies weight gain and Denies weight loss ENT Denies dizziness Card Denies chest pain, Denies leg edema, Denies lightheadedness, Denies palpitations, Denies dyspnea and Denies dyspnea on exertion Resp Denies cough, Denies dyspnea and Denies dyspnea on exertion GI Denies hematochezia Musc Denies abnormal gait, Denies muscle weakness, Denies numbness, Denies radiating pain into limb and Denies tingling Neuro Denies abnormal gait, Denies dizziness, Denies frequent falls, Denies numbness, Denies tingling and Denies weakness Endo Denies fatigue and Denies palpitations Physical Exam Vital Signs: Last Vital Signs Pulse 62 10/10/23 14:47 BP 118/60 10/10/23 14:47 Pulse Ox 98 10/10/23 14:47 Oxygen Delivery Method Room Air 10/10/23 14:47 BMI result Body Mass Index 29.6 GENERAL APPEARANCE: in no acute distress, pleasant. NECK: no carotid bruit, no jugular venous distention. SKIN: no suspicious lesions, warm and dry. HEART: no murmurs, regular rate and rhythm. LUNGS: clear to auscultation bilaterally. ABDOMEN: soft, nontender. EXTREMITIES: no edema. PERIPHERAL PULSES: equal. NEUROLOGIC: No gross deficits, AAO X 3 Assessment & Plan Assessment & Plan (1) Essential hypertension: Code(s): I10 - Essential (primary) hypertension Category: Medical (2) Hyperlipidemia: Code(s): E78.5 - Hyperlipidemia, unspecified Category: Medical (3) [place] (myocardial infarction): Comment: While in [place], reported Code(s): I25.2 - Old myocardial infarction Category: Medical Plan Pleasant 72 year gentleman who is here for follow-up. He has reported 2 MIs by in [place] many years ago. No exertional symptoms. No chest discomfort shortness of breath. Echocardiogram previously has shown normal LV function without any significant wall motion abnormalities, mild dilation of ascending aorta and mild aortic valve regurgitation. He continues to be clinically and hemodynamically stable. Follow-up with us in 6 months. Thank you for allowing me to participate in the care of your patient. Please feel free to contact me if you have any questions. Coding Level of Care Code Est Pt Level 4 (87759) Diagnoses Essential hypertension I10 Hyperlipidemia E78.5 [place] (myocardial infarction) I25.2
== END 2023-10-10 15:09 | disposition home or self-care (01) ==
PROVIDERS: PCP Internal Medicine; Visit Provider Internal Medicine Cardiovascular Disease
DX: I10 Essential (primary) hypertension (principal); E78.5 Hyperlipidemia, unspecified; I25.2 Old myocardial infarction
CPT/HCPCS: 99214

== ENCOUNTER → 2023-10-10 14:46 | Outpatient (BNVA) | payer MEDICAID, SELFPAY | PROVIDERS: PCP Internal Medicine; Visit Provider Internal Medicine Cardiovascular Disease | DX: I25.2 Old myocardial infarction (principal); I10 Essential (primary) hypertension; E78.5 Hyperlipidemia, unspecified | CPT/HCPCS: 99212 ==

== ENCOUNTER 2023-11-23 09:07 | Outpatient (AMB) | payer MEDICAID, SELFPAY ==
--- NOTE | 2023-11-23 09:25 | AM.OFFWIN_ITS ---
Intake Vital Signs 11/23/23 09:26 Height 5 ft 7 in Weight 188 lb BMI 29.4 BP 112/80 Blood Pressure Location Lt brachial Position Sitting Pulse 64 Pulse Source Pulse Oximeter Temp 98.8 F Temp Source Oral Pulse Oximetry (%) 98 Oxygen Delivery Method Room Air Intake Visit Reasons: sore throat, congestion,cough and fever Intake Note: pt here c/o sore throat, congestion, cough and fever. Started 4 days ago Patient Tobacco Use Status: Never used Tobacco Allergies Penicillins Allergy (Intermediate, Verified 11/23/23 09:26) swelling Sulfa (Sulfonamide Antibiotics) Allergy (Intermediate, Verified 11/23/23 09:26) itching and rash cephalexin Allergy (Mild, Verified 11/23/23 09:26) swelling Do you need a note to return to daycare/school/sports/work: No HPI sore throat, congestion,cough and fever HPI Details This note is constructed using voice recognition software. While every effort has been made to ensure accuracy, information and data architect analyst errors may have been included. The patient is a 73 year old male who presents to the clinic today with concerns for URI. Orthotist Or Prosthetist via tablet. He reports symptom onset 3 days ago, at which time he developed sore throat, body aches, and generalized fatigue with cough and congestion. He was to be traveling to [place] and the [place], but canceled his flight when he tested himself yesterday and was positive for COVID. [facility] Medical History (Updated 09/13/23 @ 18:26 by Tiny Dasilva MD) Mild recurrent major depression Erectile dysfunction Right sided sciatica Left hip pain Chronic cough COVID-19 Abnormal x-ray Opacity of lung on imaging study Spitting up blood Blurry vision Pure hypercholesterolemia Essential hypertension Hyperlipidemia [place] (myocardial infarction) Surgical History History of back surgery History of throat surgery Hx of colonoscopy Hx of circumcision History of lung surgery Family History Father No problems noted. Mother HTN (hypertension) Family/Other HTN (hypertension) Diabetes Daughter No problems noted. Daughter No problems noted. Son No problems noted. Social History Housing: House Alcohol intake: current Alcohol intake frequency: holidays/special occasions only Patient Tobacco Use Status: Never used Tobacco e-Cigarette/Vaping Use: Never Used Second Hand Smoke Exposure: No service: No Current occupational status: unemployed Cognitive needs: No Hearing needs: No Vision needs: Yes Review of Systems Const All systems reviewed & are unremarkable except as noted in HPI and below Physical Exam Vital Signs: Last Vital Signs Temp 98.8 F 11/23/23 09:26 Pulse 64 11/23/23 09:26 BP 112/80 11/23/23 09:26 Pulse Ox 98 11/23/23 09:26 Oxygen Delivery Method Room Air 11/23/23 09:26 BMI result Body Mass Index 29.4 Const General: cooperative, healthy appearing, comfortable and no acute distress Orientation/consciousness: patient oriented x3 Limitations: no limitations HEENT Head: Yes normal to inspection Ears: hearing grossly normal bilaterally, external ears normal and TM's normal bilaterally General nose exam: Normal external nose present, Normal nares present and No nasal discharge present Face and sinus: Yes normal facial exam and Yes sinuses nontender Mouth: Normal oral and palatal mucosa present and moist mucous membranes Throat: Yes tonsils normal, Yes uvula midline and Yes posterior oropharynx abnormal (Erythema) Eyes General: appearance normal, both eyes and all related structures Neck Neck: Yes normal visual inspection Resp Effort & Inspection: normal respiratory effort, able to speak in complete sentences, Actively coughing, no respiratory distress, not tachypneic, no tripod positioning and no use of accessory muscles Auscultation: clear to auscultation bilaterally Cardio Jugular venous distension: no JVD Rate: regular rate Rhythm: regular rhythm Heart sounds: S1 normal heart sound present, S2 normal heart sound present, no click, no gallops, no murmurs and no rubs Skin General skin exam: no rashes or lesions noted, elasticity normal and turgor normal Neuro General: patient oriented x3 Extrem General: Yes normal to inspection and Yes no clubbing, cyanosis or edema Results AMB Rapid Strep AMB Rapid Strep Negative Last Edit by Riley Jennings CMA on 11/23/23 09:44 Assessment & Plan Assessment & Plan (1) URI (upper respiratory infection): Code(s): J06.9 - Acute upper respiratory infection, unspecified Qualifiers: URI type: unspecified URI Qualified Code(s): J06.9 - Acute upper respiratory infection, unspecified Plan: In office rapid strep test negative. At home positive COVID. Patient needed confirmation due to travel and work, test repeated here today for coronavirus. Discussed antiviral therapy, which he has declined at this time due to concern for side effects. Reviewed supportive measures at home including hydration, humidification, antipyretics, NSAIDs as needed. Advised follow up with any dyspnea, particularly at rest or any additional concerning symptoms with primary care, walk-in clinic, or emergency room if needed. Plan See above for full details and plan. Orders: Orders SARS-CoV2/FLU/RSV Today J06.9 - Acute upper respiratory infection, unspecified AMB Rapid Strep Screen Today Z13.9 - Encounter for screening, unspecified Coding Level of Care Code Est Pt Level 3 (87838) Diagnoses Upper respiratory tract infection, unspecified type J06.9 URI type: unspecified URI
[2023-11-23 09:26] VITALS: BP 112/80; PULSE 64; TEMP 37.1; O2SAT 98; BMI 29.4
== END 2023-11-23 11:18 | disposition home or self-care (01) ==
PROVIDERS: PCP Internal Medicine; Visit Provider Registered Nurse
DX: J06.9 Acute upper respiratory infection, unspecified (principal)
CPT/HCPCS: 87880; 99213

== ENCOUNTER 2023-11-23 09:40 | Outpatient (REF) | payer MEDICAID, SELFPAY ==
[2023-11-23 13:45] LABS: Influenza A PCR NEGATIVE (Negative); Influenza B PCR NEGATIVE (Negative); Resp Syncy Virus RNA Qual PCR NEGATIVE (Negative); SARS COV2 PCR INHOUSE POSITIVE (Negative)
== END 2023-11-23 09:41 | disposition home or self-care (01) ==
LOC: HO.LNP 09:40
PROVIDERS: Visit Provider Registered Nurse
DX: J06.9 Acute upper respiratory infection, unspecified (principal)
CPT/HCPCS: 0241U

== ENCOUNTER 2024-01-09 10:31 | Outpatient (AMB) | payer MEDICAID, SELFPAY ==
--- NOTE | 2024-01-09 10:51 | MHC.PC.OV ---
Vital Signs 01/09/24 10:52 Height 5 ft 7 in Weight 186 lb BMI 29.1 BP 136/72 Blood Pressure Location Lt brachial Position Sitting Intake Visit [place] [facility] [place] Syncope vs Seizure Helicopter Crew Chief Required: No Accompanied by: Daughter Allergies Penicillins Allergy (Intermediate, Verified 01/09/24 11:28) swelling Sulfa (Sulfonamide Antibiotics) Allergy (Intermediate, Verified 01/09/24 11:28) itching and rash cephalexin Allergy (Mild, Verified 01/09/24 11:28) swelling Medication List - Last Reconciled 01/09/24 by Tiny Dasilva MD albuterol sulfate 90 mcg/actuation 2 puffs inhalation Q4-6H PRN 30 days aspirin (Adult Aspirin Regimen) 81 mg PO DAILY blood pressure monitor As directed fluticasone propionate 50 mcg/actuation (Flonase Allergy Relief) 1 spray intranasal DAILY PRN 30 days indapamide 1.25 mg PO QAM 90 days losartan 50 mg PO DAILY rosuvastatin 20 mg PO DAILY 90 days Tobacco use date assessed: 09/13/23 Fall risk assessment: 1 Fall in past year Last assessed Fall Risk: 01/09/24 Dental Screening Dental Screen Date: 09/13/23 HPI HPI Comments History of Present Illness Details This is a 73-year-old male with hypertension and pure hypercholesterolemia that comes accompanied by daughter as hospital discharge follow-up with discharge date 01/06/2024 due to an episode of syncope in which they were at a family gathering and he had about 4 beers and did not eat much during the day therefore had a syncope and collapse. Started to feel dizzy before and had an episode of fecal incontinence. No tonic-clonic movements. Has carotid bruit and murmur and will order carotid duplex and echocardiogram. Will be referred to Neurology. Went to the hospital and had an EKG which no significant abnormality. Head CT was negative. Labs were within normal limits. Syncope most likely due to hypovolemia. Today blood pressure is stable. On statins for cholesterol. Complains of right shoulder pain and will order x-ray. [facility] Medical History (Updated 01/09/24 @ 13:06 by Tiny Dasilva MD) Seizure Mild recurrent major depression Erectile dysfunction Right sided sciatica Left hip pain Chronic cough COVID-19 Abnormal x-ray Opacity of lung on imaging study Spitting up blood Blurry vision Pure hypercholesterolemia Essential hypertension Hyperlipidemia [place] (myocardial infarction) Surgical History History of back surgery History of throat surgery Hx of colonoscopy Hx of circumcision History of lung surgery Family History Father No problems noted. Mother HTN (hypertension) Family/Other HTN (hypertension) Diabetes Daughter No problems noted. Daughter No problems noted. Son No problems noted. Social History Housing: House Alcohol intake: current Alcohol intake frequency: holidays/special occasions only Patient Tobacco Use Status: Never used Tobacco e-Cigarette/Vaping Use: Never Used Second Hand Smoke Exposure: No service: No Current occupational status: unemployed Cognitive needs: No Hearing needs: No Vision needs: Yes Questionnaire Thrive Questionnaire Date Thrive assessed: 09/13/23 MARIUSZ-7 AMB Questionnaire MARIUSZ-7 Date MARIUSZ - 7 assessed: 09/13/23 Source: Developed by Drs. Chris Felix, Melvina Rubio, Himanshu Guerrero and colleagues, with an educational edgar from [employer]. Review of Systems Const All systems reviewed & are unremarkable except as noted in HPI and below Card Denies chest pain at rest, Denies chest pain with activity, Denies edema, Denies irregular heart rhythm, Denies claudication, Denies dyspnea, Denies dyspnea on exertion, Denies orthopnea, Denies paroxysmal nocturnal dyspnea and Denies slow heart rate Resp Denies cough, Denies dyspnea and Denies dyspnea on exertion GI Denies abdominal pain, Denies change in bowel habits, Denies excessive flatus, Reports fecal incontinence, Denies nausea and Denies vomiting Denies urinary hesitancy, Denies urinary incontinence and Denies urinary urgency Musc Denies abnormal gait, Denies atrophy, Denies deformity and Denies limited range of motion Skin/Breast Denies bleeding lesions, Denies changing lesions and Denies rash Neuro Denies abnormal gait, Denies behavioral changes and Denies lack of coordination Psych Denies behavioral changes Physical exam (Primary Care) Vital Signs: Last Vital Signs BP 136/72 01/09/24 10:52 BMI result Body Mass Index 29.1 Tobacco/Smoking Status: Tobacco use Status Tobacco use date assessed 09/13/23 01/09/24 10:55 Patient Tobacco Use Status Never used Tobacco 01/09/24 10:55 e-Cigarette/Vaping Use Never Used 01/09/24 10:55 Thrive Assessment: Date of Thrive Assessment Date Thrive assessed 09/13/23 01/09/24 10:55 Neck Carotids: bruit bilateral Resp Effort & Inspection: normal respiratory effort Auscultation: clear to auscultation bilaterally Cardio Jugular venous distension: no JVD Rate: regular rate Rhythm: regular rhythm Heart sounds: S1 normal heart sound present, S2 normal heart sound present and Murmur heart sound present Extrem General: Yes full ROM Assessment and Plan Assessment & Plan (1) Hospital discharge follow-up: Code(s): Z09 - Encounter for follow-up examination after completed treatment for conditions other than malignant neoplasm Plan: Discharge date 01/06/2024 due to syncope. Head CT and EKG negative. Labs within normal limits. (2) Syncope: Code(s): R55 - Syncope and collapse Plan: Echocardiogram and carotid duplex ordered. Referred to neurology. (3) Essential hypertension: Code(s): I10 - Essential (primary) hypertension Plan: Continue indapamide. (4) Pure hypercholesterolemia: Code(s): E78.00 - Pure hypercholesterolemia, unspecified Plan: Continue statins. (5) Right shoulder pain: Code(s): M25.511 - Pain in right shoulder Plan: X-ray ordered. Orders: Orders XR shoulder RT min 2V Today M25.511 - Pain in right shoulder EEG awake and asleep Today R56.9 - Unspecified convulsions US carotid duplex BI Today R09.89 - Other specified symptoms and signs involving the circulatory and respiratory systems, R55 - Syncope and collapse CA echo transthoracic complete Today R01.1 - Cardiac murmur, unspecified, R55 - Syncope and collapse Referrals Neurology Referral R55 - Syncope and collapse, R56.9 - Unspecified convulsions Coding Level of Care Code Est Pt Level 4 (45525) Complex EM visit Add On G2211 Diagnoses Hospital discharge follow-up Z09 Syncope R55 Essential hypertension I10 Pure hypercholesterolemia E78.00 Right shoulder pain M25.511 Time Spent (min) 26
[2024-01-09 10:52] VITALS: BP 136/72; BMI 29.1
== END 2024-01-09 11:53 | disposition home or self-care (01) ==
PROVIDERS: PCP Internal Medicine; Visit Provider Internal Medicine
DX: R55 Syncope and collapse (principal); I10 Essential (primary) hypertension; E78.00 Pure hypercholesterolemia, unspecified; M25.511 Pain in right shoulder
CPT/HCPCS: 99214

== ENCOUNTER 2024-01-09 12:05 | Outpatient (REF) | payer MEDICAID, SELFPAY ==
--- NOTE | ~2024-01-09 | XR_ITS ---
EXAMINATION: XR SHOULDER, RIGHT CLINICAL INFORMATION: Right shoulder pain. COMPARISON: None available. TECHNIQUE: AP external rotation, Grashey, scapular Y, and axillary views of the right shoulder. FINDINGS: There is [id number] acromioclavicular osteoarthritis. Glenohumeral joint is well preserved. No fracture. Alignment is anatomic. Soft tissues are normal with no abnormal calcifications. XR/XR shoulder RT min 2V IMPRESSION: [id number] acromioclavicular osteoarthritis. No acute osseous findings. Electronically signed by: Regis Dunham MD 01/22/2024 11:46 PM EDT
== END 2024-01-09 12:06 | disposition home or self-care (01) ==
LOC: HO.XRAY 12:05
PROVIDERS: PCP Internal Medicine; Visit Provider Internal Medicine
DX: M25.511 Pain in right shoulder (principal)
CPT/HCPCS: 73030

== ENCOUNTER 2024-03-17 11:45 | Outpatient (REF) | payer MEDICAID, SELFPAY ==
--- NOTE | ~2024-03-17 | CT_ITS ---
EXAMINATION: CT CHEST WITHOUT CONTRAST CLINICAL INFORMATION: Abnormal findings. Nodule, right upper lobe. COMPARISON: CT chest dated January 19, 2023 and July 30, 2020. Correlated to PET CT report dated August 10, 2020. TECHNIQUE: Multidetector volumetric CT imaging of the chest was done. Axial MIP volume rendering provided. Sagittal and coronal reformatted images were obtained. This CT examination was performed using dose optimization techniques as appropriate, variously including the following: *Automated exposure control *Adjustment of mA and/or kV according to patient size (this includes techniques or standardized protocols for targeted exams where dose is matched to indication/reason for exam; i.e. extremities or head) *Use of iterative reconstruction technique DLP: 164 mGy-cm FINDINGS: Submitted for interpretation on April 04, 2024. Right lung: There is a 3 cm and the 1.6 cm cluster of peribronchial low density irregular nodularity cerebellar a the right upper lobe likely anterior segment with associated volume loss. There is a focal area of increased lucency in the peripheral aspect of the right upper lobe. No bronchiectasis. No honeycombing. Left lung: No pulmonary nodules. No airspace disease. No bronchiectasis. No honeycombing.. No gross lymphadenopathy, mediastinum. No gross pericardial effusion. No pleural effusion. No pneumothorax. Calcified plaques in the thoracic aorta. No aneurysm in the thoracic aorta. Included upper abdomen demonstrated hepatic colonic flexure posterior and slightly above the right hepatic lobe. The thyroid gland is not enlarged. Multilevel syndesmophyte formation and marginal osteophyte formation throughout the thoracic spine vertebral bodies without acute fracture or listhesis. There is partial fusion of the posterior and lateral segments sixth and seventh ribs, right hemithorax. CT/CT chest wo IV con IMPRESSION: Probable post treatment changes, right lung. Stable since prior exam. Consider PET CT surveillance. Fleischner guidelines were followed. Electronically signed by: Migel Ferguson MD 04/04/2024 10:07 AM [facility]AL[facility]
== END 2024-03-17 11:46 | disposition home or self-care (01) ==
LOC: HO.CT 11:45
PROVIDERS: PCP Internal Medicine; Visit Provider Internal Medicine Pulmonary Disease
DX: R93.89 Abnormal findings on diagnostic imaging of other specified body structures (principal)
CPT/HCPCS: 71250

== ENCOUNTER → 2024-03-17 11:47 | Outpatient (BNV) | payer MEDICAID, SELFPAY | PROVIDERS: PCP Internal Medicine; Visit Provider Radiology Diagnostic Radiology | DX: R93.89 Abnormal findings on diagnostic imaging of other specified body structures (principal) | CPT/HCPCS: 71250 ==

== ENCOUNTER → 2024-03-18 09:09 | Outpatient (REF) | payer MEDICAID, SELFPAY ==
--- NOTE | ~2024-03-18 | US_ITS ---
EXAMINATION: US EXTRACRANIAL CAROTID DUPLEX, BILATERAL CLINICAL INFORMATION: Syncope and collapse. COMPARISON: None available. TECHNIQUE: Real-time ultrasound and Doppler techniques (integrating B-mode 2-D vascular images, Doppler spectral analysis and color-flow Doppler imaging) were utilized to interrogate the extracranial carotid arteries, the vertebral arteries and proximal subclavian arteries bilaterally. The degree of stenosis is determined by criteria similar to NASCET. FINDINGS: Right Side: 1. There is mild atherosclerotic plaque seen in the bifurcation/proximal ICA region. 2. The common carotid artery PSV proximally is 91 cm/s and distally 75 cm/s. 3. The proximal internal carotid artery velocities are 52 cm/s systolic and 13 cm/s diastolic. 4. The proximal external carotid artery PSV is 74 cm/s. 5. The vertebral artery shows antegrade flow. 6. The subclavian artery waveforms are normal. Left Side: 1. There is minimal atherosclerotic plaque seen in the bifurcation/proximal ICA region. 2. The common carotid artery PSV proximally is 97 cm/s and distally 68 cm/s. 3. The proximal internal carotid artery velocities are 69 cm/s systolic and 24 cm/s diastolic. 4. The proximal external carotid artery PSV is 79 cm/s. 5. The vertebral artery shows antegrade flow. 6. The subclavian artery waveforms are normal. US/US carotid duplex BI IMPRESSION: 1. RIGHT: Minimal, non-hemodynamically significant stenosis of the proximal right internal carotid artery corresponding to a 0-49% stenosis by velocity criteria. 2. LEFT: Minimal, non-hemodynamically significant stenosis of the proximal left internal carotid artery corresponding to a 0-49% stenosis by velocity criteria. . Electronically signed by: Chapin Yates MD 03/24/2024 11:46 PM EST
--- NOTE | 2024-03-18 09:12 | CA_ITS ---
Transthoracic Echocardiogram Patient (Last, First, Middle): Jitendra Graham, Gender: Male Date of : 1950 Age: 73 Procedure Date: 03/18/2024 Procedure Type: Transthoracic Echocardiogram Location: OP Height: 172. cm Weight: 86.18 kg BSA: 1.99 m2 Heart Rate: 60 bpm BP: 130 / 70 mmHg Pharmacy Grad Intern: POOL Cheney MD: Tiny Dasilva MD Treating Plant Pumper: Ashwin Seals MD Symptoms: R55 - Syncope and collapse Study Quality: Fair ECG Rhythm: Sinus Conclusions: - 1. Normal LV ejection fraction of 60 65% with moderate left ventricular hypertrophy with impaired relaxation filling pattern 2. Mild aortic regurgitation 3. Mildly dilated ascending aorta at 4.1 cm 4. Normal RV systolic pressure 5. No gross pericardial effusion Findings Left Ventricle Normal left ventricular size and systolic function. There is moderately increased left ventricular wall thickness. The visually estimated ejection fraction is between 60-65%. Spectral Doppler is indicative of an impaired relaxation filling pattern. E/E prime ratio is between 8 and 15 consistent with indeterminate filling pressures. Right Ventricle Normal right ventricular cavity size and systolic function. Atria The left atrium is normal in size. There is no evidence of interatrial shunt. The right atrium is normal in size. Aortic Valve There is mild calcification of the aortic valve. There is no aortic valve stenosis. There is mild aortic valve regurgitation. Mitral Valve There is mild anterior mitral leaflet thickening. There is trace mitral valve regurgitation. There is no mitral valve stenosis. Pulmonic Valve The pulmonic valve was not well visualized. Tricuspid Valve Likely normal tricuspid valve structure and function. There is trace tricuspid valve regurgitation. The right ventricular systolic pressure is normal. The right ventricular systolic pressure is 20 mmHg. Normal right atrial pressure. There is no evidence of pulmonary hypertension. Great Vessels The pulmonary artery was not well visualized. There is mild dilatation of the ascending aorta measuring 4.10 cm. Small plaque is seen in the sino tubular ridge. Venous The inferior vena cava is normal in size and collapses greater than 50% with inspiration. Pericardium/Pleural There is no evidence of pericardial effusion. Prior Study Comparison Changes noted compared to prior study dated: 08/02/2022. LVH is moderate Measurements 2D Linear Measurements IVSd: 1.44 0.6-0.9/0.6-1.0 cm LVIDd: 4.50 3.9-5.3/4.2-5.9 cm LVIDd Index: 2.26 2.4-3.2/2.2-3.1 cm/m2 LVIDs: 2.67 2.0-3.6 cm LVPWd: 1.36 0.7-1.1 cm LA Diam: 3.70 2.7-3.8/3.0-4.0 cm LAIDs Index: 1.86 1.5-2.3 cm/m2 LV Mass: 309.81 67-162/88-224 g LV Mass Index: 155.68 43-95/49-115 g/m2 LVOT Diam: 1.80 3.0+(-)1.3 cm 2D Systolic Function EF 4C: 65.00 >55% EF 2C: 52.40 >55% EF BiP: 59.50 >55% Mitral Valve MV Pk E: 0.51 MV PK A: 0.70 MV Decel Time: 306.00 E/A: 0.70 E'Lateral: 7.83 E'Medial: 7.51 E/E' Med: 6.80 E/E' Lat: 6.50 PHT: 90.00 MVA PHT: 2.44 Decel Stutsman: 1.66 Aortic Valve AoV Pk Dylon: 1.74 AoV Mn Dylon: 1.26 AoV VTI: 0.37 AoV Pk Grad: 12.00 Aov Mn Grad: 7.00 FELIX Cont.VTI: 1.64 LVOT LVOT Pk Dylon: 1.26 LVOT Mn Dylon: 0.78 LVOT VTI: 0.24 LVOT Pk Grad: 6.00 LVOT Mn Grad: 3.00 LVOT Diam: 1.80 LVOT Area: 2.54 Diastolic Function MV Pk E: 0.51 MV Pk A: 0.70 E/A: 0.70 E'Medial: 7.51 E/E' Med: 6.80 E' Laterial: 7.83 E/E' Lat: 6.50 Right Ventricle TAPSE (mm): 23.90 TVS' Dylon: 14.40 Tricuspid Valve TR Pk Dylon: 2.08 TR Pk Grad: 17.00 RA Press: 3.00 RVSP: 20.00 Great Vessels Aorta Sinus of Valsalva: 3.40 2.0-3.5 cm Ao Asc: 4.10 2.1-3.4 cm Pulmonary Valve PV Pk Dylon: 1.17 Peak PV Grad: 5.00 Updated in Other Vendor System with Status of Final Ashwin Seals MD electronically signed on 03/18/2024 5:00:44 PM with status of Final
== END ==
LOC: HO.CARD 09:09
PROVIDERS: PCP Internal Medicine; Visit Provider Internal Medicine
DX: R55 Syncope and collapse (principal); R01.1 Cardiac murmur, unspecified; R09.89 Other specified symptoms and signs involving the circulatory and respiratory systems
CPT/HCPCS: 93306; 93880

== ENCOUNTER → 2024-03-18 09:12 | Outpatient (BNV) | payer MEDICAID, SELFPAY | PROVIDERS: PCP Internal Medicine; Visit Provider Internal Medicine Cardiovascular Disease | DX: I35.1 Nonrheumatic aortic (valve) insufficiency (principal) | CPT/HCPCS: 93306 ==

== ENCOUNTER 2024-03-19 08:08 | Outpatient (REF) | payer MEDICAID, SELFPAY ==
--- NOTE | 2024-03-19 08:11 | EEG_ITS ---
FINDINGS: The waking background activity consists of a moderate voltage 8 hertz posterior alpha frequency with frequent bursts of sharp theta seen over both hemispheres, lasting up to 6 seconds without any clinical symptoms. Photic stimulation is without activation. Hyperventilation was omitted. IMPRESSION: This EEG is considered abnormal due to some paroxysmal features that are not localized and appear from both hemispheres with bursts of sharp theta that may correlate with seizure disorder. Clinical correlation is suggested. MD KYLE Saravia/AJAY / [phone]
== END 2024-03-19 08:09 | disposition home or self-care (01) ==
LOC: HO.NEURO 08:08
PROVIDERS: PCP Internal Medicine; Visit Provider Internal Medicine
DX: R55 Syncope and collapse (principal)
CPT/HCPCS: 95816

== ENCOUNTER 2024-03-24 09:32 | Outpatient (AMB) | payer MEDICAID, SELFPAY ==
[2024-03-24 09:37] VITALS: BP 122/70; PULSE 70; O2SAT 99; BMI 29.9
--- NOTE | 2024-03-24 09:37 | MHC.OFFVIS ---
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 He denies family history of lung disease.? His PET-CT was negative for increased activity.?He continues to use albuterol MDI with good control of his dyspnea using it not more often than once a day.? He has had prior COVID-19, but he has essentially required to baseline.? Patient had another follow-up CT chest with results not available for this visit, but on my review with no significant changes from prior. Today he does complain of approximately 10 day history of a cough productive excessive amount of whitish sputum. [facility] Medical History (Updated 02/26/24 @ 20:07 by Tiny Dasilva MD) Seizure Mild recurrent major depression Erectile dysfunction Right sided sciatica Left hip pain Chronic cough COVID-19 Abnormal x-ray Opacity of lung on imaging study Spitting up blood Blurry vision Pure hypercholesterolemia Essential hypertension Hyperlipidemia [place] (myocardial infarction) Surgical History History of back surgery History of throat surgery Hx of colonoscopy Hx of circumcision History of lung surgery Family History Father No problems noted. Mother HTN (hypertension) Family/Other HTN (hypertension) Diabetes Daughter No problems noted. Daughter No problems noted. Son No problems noted. Social History Housing: House Alcohol intake: current Alcohol intake frequency: holidays/special occasions only Patient Tobacco Use Status: Never used Tobacco e-Cigarette/Vaping Use: Never Used Second Hand Smoke Exposure: No service: No Current occupational status: unemployed Cognitive needs: No Hearing needs: No Vision needs: Yes Review of Systems Const Denies daytime sleepiness, Denies excessive sweating, Denies fatigue, Denies fever(s), Denies lethargy, Denies malaise, Denies night sweats, Denies snoring and Denies weight loss Eyes Denies blurry vision and Denies itchy eyes ENT Denies nasal congestion, Denies post nasal drip, Denies sinus pain, Denies sinus pressure and Denies other ( Thrush) Card Denies chest pain, Denies pedal edema, Denies dyspnea, Denies orthopnea and Denies paroxysmal nocturnal dyspnea Resp Reports cough, Denies hemoptysis, Reports excessive phlegm production, Denies dyspnea, Denies snoring and Denies wheezing GI Denies abdominal pain and Denies heartburn Musc Denies myalgias, Denies arthralgias and Denies joint swelling Skin/Breast Denies rash Neuro Denies memory loss and Denies seizure-like activity Psych Denies abnormal sleep pattern, Denies anxiety and Denies memory loss Endo Denies excessive sweating, Denies fatigue and Denies heat intolerance Dontrell/Lymph Denies easy bruising Aller/Immun Denies itchy eyes, Denies seasonal rhinorrhea and Denies wheezing Physical Exam Vital Signs: Last Vital Signs Pulse 70 03/24/24 09:37 BP 122/70 03/24/24 09:37 Pulse Ox 99 03/24/24 09:37 Oxygen Delivery Method Room Air 03/24/24 09:37 BMI result Body Mass Index 29.9 Const General: no acute distress and alert Nutritional Appearance: not obese Orientation/consciousness: Other orientation findings ( oriented) HEENT Head: Yes atraumatic Eyes General: appearance normal, both eyes and all related structures Sclerae: sclerae normal EOM: EOMs intact bilaterally Neck Neck: Yes supple Lymphatic: no lymphadenopathy noted Resp Effort & Inspection: normal respiratory effort and no use of accessory muscles Auscultation: clear to auscultation bilaterally Cardio Rate: regular rate Rhythm: regular rhythm Heart sounds: no gallops, no murmurs and no rubs Skin General skin exam: other ( warm) Extrem General: No clubbing, No cyanosis and No edema Assessment & Plan Assessment & Plan (1) Reactive airway disease: Code(s): J45.909 - Unspecified asthma, uncomplicated Category: Medical Plan: Well controlled on as needed albuterol MDI. Now with mild bronchitic exacerbation, will treat with a course of azithromycin. (2) Abnormal CT scan, chest: Code(s): R93.89 - Abnormal findings on diagnostic imaging of other specified body structures Category: Medical Plan: Results of follow-up CT chest not available for this visit. On my review, imaging findings appear to be stable from the prior scan in December of 2022. Medications: New azithromycin For 250 mg dose pack: take 500 mg today (day 1), then 250 mg for 4 days (days 2-5) PO 6 tabs 0RF Coding Level of Care Code Est Pt Level 4 (61906) Diagnoses Reactive airway disease J45.[address] scan, chest R93.89
== END 2024-03-24 09:53 | disposition home or self-care (01) ==
PROVIDERS: PCP Internal Medicine; Visit Provider Internal Medicine Pulmonary Disease
DX: J45.909 Unspecified asthma, uncomplicated (principal); R93.89 Abnormal findings on diagnostic imaging of other specified body structures
CPT/HCPCS: 99214

== ENCOUNTER → 2024-03-24 09:32 | Outpatient (BNVA) | payer MEDICAID, SELFPAY | PROVIDERS: PCP Internal Medicine; Visit Provider Internal Medicine Pulmonary Disease | DX: R55 Syncope and collapse (principal); I10 Essential (primary) hypertension; E78.00 Pure hypercholesterolemia, unspecified; R31.9 Hematuria, unspecified; R05.9 Cough, unspecified; Z57.5 Occupational exposure to toxic agents in other industries; J45.909 Unspecified asthma, uncomplicated; R93.89 Abnormal findings on diagnostic imaging of other specified body structures; Z28.21 Immunization not carried out because of patient refusal | CPT/HCPCS: 90471; 99212 ==

== ENCOUNTER 2024-03-24 12:09 | Outpatient (AMB) | payer MEDICAID, SELFPAY ==
--- NOTE | 2024-03-24 12:11 | A.OFFPC_ITS ---
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 Accompanied by: Daughter Allergies Penicillins Allergy (Intermediate, Verified 03/24/24 12:38) swelling Sulfa (Sulfonamide Antibiotics) Allergy (Intermediate, Verified 03/24/24 12:38) itching and rash cephalexin Allergy (Mild, Verified 03/24/24 12:38) swelling Medication List - Last Reconciled 03/24/24 by Tiny Dasilva MD albuterol sulfate 90 mcg/actuation 2 puffs inhalation Q4-6H PRN 30 days aspirin (Adult Aspirin Regimen) 81 mg PO DAILY azithromycin For 250 mg dose pack: take 500 mg today (day 1), then 250 mg for 4 days (days 2-5) PO blood pressure monitor As directed fluticasone propionate 50 mcg/actuation (Flonase Allergy Relief) 1 spray intranasal DAILY PRN 30 days indapamide 1.25 mg PO QAM 90 days losartan 50 mg PO DAILY rosuvastatin 20 mg PO DAILY 90 days Tobacco use date assessed: 09/13/23 Fall risk assessment: No Falls in past year Last assessed Fall Risk: 03/24/24 Dental Screening Dental Screen Date: 03/24/24 Did you have a dental visit in the last 12 months?: No Did you have a dental problem in the last 6 months where you did not have access to dental care?: No Was dental information given to patient?: Patient has dentist HPI HPI Comments History of Present Illness Details This is a 73-year-old male with hypertension and pure hypercholesterolemia that comes accompanied by daughter for follow-up on his conditions. Blood pressure stable. Last cholesterol was well controlled with statins and reports no side effects. He had an episode of syncope associated with fecal incontinence after having 3 beers back in December of this year and went to emergency room in which results did not show any significant abnormality to explain this symptoms. Saw Neurology which order an EEG and results are still pending. He is not able to drive up until April 16 in which results of EEG will be available. He has had episodes of dizziness associated with changes in head position twice after that syncopal episode. No chest pain or shortness on breath. [facility] Medical History (Updated 03/24/24 @ 12:55 by Tiny Dasilva MD) Seizure Mild recurrent major depression Erectile dysfunction Right sided sciatica Left hip pain Chronic cough COVID-19 Abnormal x-ray Opacity of lung on imaging study Spitting up blood Blurry vision Pure hypercholesterolemia Essential hypertension Hyperlipidemia [place] (myocardial infarction) Surgical History History of back surgery History of throat surgery Hx of colonoscopy Hx of circumcision History of lung surgery Family History Father No problems noted. Mother HTN (hypertension) Family/Other HTN (hypertension) Diabetes Daughter No problems noted. Daughter No problems noted. Son No problems noted. Social History Housing: House Alcohol intake: current Alcohol intake frequency: holidays/special occasions only Patient Tobacco Use Status: Never used Tobacco e-Cigarette/Vaping Use: Never Used Second Hand Smoke Exposure: No service: No Current occupational status: unemployed Cognitive needs: No Hearing needs: No Vision needs: Yes Questionnaire Thrive Questionnaire Date Thrive assessed: 09/13/23 AUDIT C Alcohol Use Questionnaire (AUDIT-C) 1. How often do you have a drink containing alcohol?: Monthly or less 2. How many drinks containing alcohol do you have on a typical day when you are drinking?: 1 or 2 3. How often do you have six or more drinks on one occasion?: Never Total Score: 1 MARIUSZ-7 AMB Questionnaire MARIUSZ-7 Date MARIUSZ - 7 assessed: 09/13/23 Source: Developed by Drs. Chris Felix, Melvina Rubio, Himanshu Guerrero and colleagues, with an educational edgar from [employer]. Review of Systems Const All systems reviewed & are unremarkable except as noted in HPI and below Card Denies chest pain at rest, Denies chest pain with activity, Denies edema, Denies irregular heart rhythm, Denies claudication, Denies dyspnea, Denies dyspnea on exertion, Denies orthopnea, Denies paroxysmal nocturnal dyspnea and Denies slow heart rate Resp Denies cough, Denies dyspnea and Denies dyspnea on exertion GI Denies abdominal pain, Denies change in bowel habits, Denies excessive flatus, Denies nausea and Denies vomiting Denies urinary hesitancy, Denies urinary incontinence and Denies urinary urgency Physical exam (Primary Care) Vital Signs: Last Vital Signs BP 128/80 03/24/24 12:17 BMI result Body Mass Index 29.6 Tobacco/Smoking Status: Tobacco use Status Tobacco use date assessed 09/13/23 03/24/24 12:16 Patient Tobacco Use Status Never used Tobacco 03/24/24 12:16 e-Cigarette/Vaping Use Never Used 03/24/24 12:16 Thrive Assessment: Date of Thrive Assessment Date Thrive assessed 09/13/23 03/24/24 12:16 Resp Effort & Inspection: normal respiratory effort Auscultation: clear to auscultation bilaterally Cardio Jugular venous distension: no JVD Rate: regular rate Rhythm: regular rhythm Heart sounds: S1 normal heart sound present and S2 normal heart sound present Extrem General: Yes full ROM Office Procedures Flu Questionnaire Does the patient have a severe egg allergy?: No Immunizations Fluarix Triv [id number] (PF) 45 mcg (15 mcg x 3)/0.5 mL IM syringe Performing Provider: Tiny Dasilva MD Performing [facility] [place] [facility] Documented (not given) by: GERMAIN Ricketts on 03/24/24 12:21 Reason Not Given: Patient Refused Coding Level of Care Code Est Pt Level 4 (40210) Complex EM visit Add On G2211 Diagnoses Hematuria R31.9 Essential hypertension I10 Pure hypercholesterolemia E78.00 Syncope R55 Time Spent (min) 22 Assessment & Plan Assessment & Plan (1) Hematuria: Code(s): R31.9 - Hematuria, unspecified Category: Medical (2) Essential hypertension: Code(s): I10 - Essential (primary) hypertension Category: Medical (3) Pure hypercholesterolemia: Code(s): E78.00 - Pure hypercholesterolemia, unspecified Category: Medical (4) Syncope: Code(s): R55 - Syncope and collapse Category: Medical Plan 1. Transient Confusion Episodes: - Consider further neurological assessment based on test outcomes. 2. Hypertension: - Continue current antihypertensive regimen including indapamide 1.25 mg and irbesartan 50 mg, monitor blood pressure. 3. Hyperlipidemia: - Continue current statin therapy with rosuvastatin 20 mg daily. 4. Urinary Bleeding: - Await further recommendations based on test results and follow-ups. Patient was informed and verbally consented to the use of an ambient scribe for clinic note documentation during this visit. Orders: Orders Influenza [id number] Immunization Today Z23 - Encounter for immunization Patient Instructions: - Continue taking prescribed medications: indapamide, irbesartan, and rosuvastatin as directed. - Monitor blood pressure regularly and report any significant changes. - Avoid alcohol consumption, especially prior to tests. - Return for follow-up after the receipt of diagnostic test results or sooner if symptoms recur. - Seek immediate medical attention if further episodes of confusion or urinary bleeding occur.
[2024-03-24 12:17] VITALS: BP 128/80; BMI 29.6
== END 2024-03-24 12:50 | disposition home or self-care (01) ==
PROVIDERS: PCP Internal Medicine; Visit Provider Internal Medicine
DX: R31.9 Hematuria, unspecified (principal); I10 Essential (primary) hypertension; E78.00 Pure hypercholesterolemia, unspecified; R55 Syncope and collapse; Z23 Encounter for immunization

== ENCOUNTER 2024-04-09 14:25 | Outpatient (AMB) | payer MEDICAID, SELFPAY ==
--- NOTE | 2024-04-09 14:26 | A.OFFVIS_ITS ---
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 He has background history of reported IN while in [place] where he had PCI done. He had chest pain episode last year and was admitted at [facility] when he underwent exercise stress testing. Stress test was essentially normal. He had hypertensive respo nse to exercise. His blood pressure has been well controlled with amlodipine. He is denying any chest pain or shortness of breath. He has been taking baby aspirin without any issues. He was previously on atorvastatin 40 mg. It appears he developed muscle aches and his atorvastatin was discontinued. I started him on Crestor on Sunday and Sunday which was changed to daily as he tolerated. It appears he had low back pain which was later diagnosed to be related to musculoskeletal/nerve pain. With his back pain he has stopped his Crestor. He is denying any symmetric arm or leg pain. Denying any chest pain or shortness of breath. After discussion he was started on Crestor. 10/10/2023: He is here for follow-up. He is denying any chest discomfort shortness of breath. He has been taking rosuvastatin 20 mg daily without any side effects. Blood pressure is well controlled. No dizziness or lightheadedness. 04/09/2024: We did a video telehealth visit. He is in [place] and did not want to misses appointment. He is denying any symptoms. No chest pain or shortness of breath. Taking medication regularly. Daughter said that they do not have a blood pressure cuff to check his blood pressure but his blood pressure readings going back to May 2023 has been stable. Echocardiography recently done was discussed with the patient. He has mild dilation of aorta. [facility] Medical History Seizure Mild recurrent major depression Erectile dysfunction Right sided sciatica Left hip pain Chronic cough COVID-19 Abnormal x-ray Opacity of lung on imaging study Spitting up blood Blurry vision Pure hypercholesterolemia Essential hypertension Hyperlipidemia [place] (myocardial infarction) Surgical History History of back surgery History of throat surgery Hx of colonoscopy Hx of circumcision History of lung surgery Family History Father No problems noted. Mother HTN (hypertension) Family/Other HTN (hypertension) Diabetes Daughter No problems noted. Daughter No problems noted. Son No problems noted. Social History Housing: House Alcohol intake: current Alcohol intake frequency: holidays/special occasions only Patient Tobacco Use Status: Never used Tobacco e-Cigarette/Vaping Use: Never Used Second Hand Smoke Exposure: No service: No Current occupational status: unemployed Cognitive needs: No Hearing needs: No Vision needs: Yes Review of Systems Const Denies chills, Denies fatigue, Denies fever(s), Denies frequent falls, Denies weakness, Denies weight gain and Denies weight loss ENT Denies dizziness Card Denies chest pain, Denies leg edema, Denies lightheadedness, Denies palpitations, Denies dyspnea and Denies dyspnea on exertion Resp Denies cough, Denies dyspnea and Denies dyspnea on exertion GI Denies hematochezia Musc Denies abnormal gait, Denies muscle weakness, Denies numbness, Denies radiating pain into limb and Denies tingling Neuro Denies abnormal gait, Denies dizziness, Denies frequent falls, Denies numbness, Denies tingling and Denies weakness Endo Denies fatigue and Denies palpitations Telehealth Telehealth Telehealth Platform: Telephone Location of provider rendering services: practice address Location of patient: address on file Patient Identification confirmed using: Name, : Yes Patient verbally consented to treatment: Yes Patient verbally consented to billing insurance company: Yes Patient informed of any privacy concerns related to visit: Yes Assessment & Plan Assessment & Plan (1) Essential hypertension: Code(s): I10 - Essential (primary) hypertension Category: Medical Plan [age] gentleman who had a telehealth visit today because he was in [place]. He is doing well. No chest pain or shortness of breath. He has known history of previous IN reportedly in [place] many years ago. Echocardiography has shown normal LV function with mild aortic valve regurgitation and mild dilation of aorta. I have reassured him that nothing major is noticed on the echocardiogram. He also has been active and walks around without any complaints. He will return back to [place] in April. He will see us in follow-up in July or August. Coding Level of Care Code Tele Est Pt Level 3 (54747) Diagnoses Essential hypertension I10 Time Spent (min) 15
== END 2024-04-09 14:58 | disposition home or self-care (01) ==
LOC: HO.HCS 14:25
PROVIDERS: PCP Internal Medicine; Visit Provider Internal Medicine Cardiovascular Disease
DX: I10 Essential (primary) hypertension (principal)
CPT/HCPCS: 99213

== ENCOUNTER → 2024-04-09 14:25 | Outpatient (BNVA) | payer MEDICAID, SELFPAY | PROVIDERS: PCP Internal Medicine; Visit Provider Internal Medicine Cardiovascular Disease ==

== ENCOUNTER 2024-05-15 10:45 | Outpatient (REF) | payer MEDICAID, SELFPAY ==
[2024-05-15 16:25] LABS: Urine Cytology See Pathology rpt
== END 2024-05-15 10:46 | disposition home or self-care (01) ==
LOC: HO.LAB 10:45
PROVIDERS: PCP Internal Medicine; Visit Provider Nurse Practitioner Family
DX: R31.9 Hematuria, unspecified (principal)
CPT/HCPCS: 81003; 88112; 99212

== ENCOUNTER 2024-05-15 10:45 | Outpatient (AMB) | payer MEDICAID, SELFPAY ==
--- NOTE | 2024-05-15 10:58 | MHC.OFFVIS ---
Intake Visit Reasons: microscopic hematuria Intake Note: New patient Presents for Microscopic Hematuria Any Urology Medication: None Antibiotic Allergies: Penicillins, Sulfa, Cephalexin Blood Thinners: Aspirin Allergies Penicillins Allergy (Intermediate, Verified 05/15/24 12:13) swelling Sulfa (Sulfonamide Antibiotics) Allergy (Intermediate, Verified 05/15/24 12:13) itching and rash cephalexin Allergy (Mild, Verified 05/15/24 12:13) swelling Medication List - Last Reconciled 05/15/24 by NICANOR Hearn albuterol sulfate 90 mcg/actuation 2 puffs inhalation Q4-6H PRN 30 days aspirin (Adult Aspirin Regimen) 81 mg PO DAILY blood pressure monitor As directed fluticasone propionate 50 mcg/actuation (Flonase Allergy Relief) 1 spray intranasal DAILY PRN 30 days indapamide 1.25 mg PO QAM 90 days losartan 50 mg PO DAILY rosuvastatin 20 mg PO DAILY 90 days HPI Comments Details: Jitendra is a very pleasant 73-year-old Slovak-speaking male patient of Dr.Roca Dasilva who was accompanied by his daughter at today's office visit. He has a past medical history of seizures, depression, ED, hyperlipidemia, hypertension, hypercholesteremia, and myocardial infarction. He presents to the office today as a new patient for gross hematuria. In discussion with the patient today he reports being on vacation in [place] a few months ago and having an episode of gross hematuria at which time he seeked emergency room care services in [place] and recommendations were made for urology referral for further assessment evaluation. He reports upon return of his trip he followed up with PCP to discuss gross hematuria and referral was made. He denies any other episodes of gross hematuria in the last 3 months. He denies any known workplace chemical exposure and or nicotine dependence. He denies having had any imaging in [place]. He otherwise denies any bothersome urinary issues or concerns. We discussed at length potential causes of gross hematuria as well as further workup to include imaging and in office cystoscopy. In review of patient's chart it appears PSAs are as follows: 08/16 1.3, 10/16 1.1, 06/22 1.3, 09/20 1.4 He denies urinary urgency, urinary frequency, incontinence, nocturia, hematuria, dysuria, foul smelling urine, changes to urinary stream, flank pain, fever, and or chills. He is happy with his current voiding parameters. In office urinalysis results reviewed with the patient today 2+ microscopic hematuria otherwise within normal limits. [facility] Medical History Seizure Mild recurrent major depression Erectile dysfunction Right sided sciatica Left hip pain Chronic cough COVID-19 Abnormal x-ray Opacity of lung on imaging study Spitting up blood Blurry vision Pure hypercholesterolemia Essential hypertension Hyperlipidemia Old [facility] (myocardial infarction) Surgical History History of back surgery History of throat surgery Hx of colonoscopy Hx of circumcision History of lung surgery Family History Father No problems noted. Mother HTN (hypertension) Family/Other HTN (hypertension) Diabetes Daughter No problems noted. Daughter No problems noted. Son No problems noted. Social History Housing: House Alcohol intake: current Alcohol intake frequency: holidays/special occasions only Patient Tobacco Use Status: Never used Tobacco e-Cigarette/Vaping Use: Never Used Second Hand Smoke Exposure: No service: No Current occupational status: unemployed Cognitive needs: No Hearing needs: No Vision needs: Yes Review of Systems Const All systems reviewed & are unremarkable except as noted in HPI and below Physical Exam Const General: cooperative, healthy appearing, comfortable, no acute distress, well developed, alert and awake Orientation/consciousness: patient oriented x3 Limitations: language barrier HEENT Head: Yes normal to inspection, Yes normocephalic and Yes atraumatic Ears: hearing grossly normal bilaterally Eyes General: appearance normal, both eyes and all related structures Neck Neck: Yes normal visual inspection and Yes trachea midline Chest Chest palpation & inspection: normal inspection of the chest Resp Effort & Inspection: normal respiratory effort and able to speak in complete sentences Cardio Rate: regular rate GI Inspection: Yes normal to inspection General: Yes no CVA tenderness Back/Spine/Pelvis Back: no CVA tenderness Skin General skin exam: no rashes or lesions noted Neuro General: patient oriented x3 Extrem General: Yes normal to inspection Psych Appearance: grossly normal and well kempt Mental Status: mental status grossly normal Speech and movement: Normal speech and movement present and Clear speech present Affect: normal affect Attitude: cooperative Thought process: Normal thought process present Thought content: Normal thought content present Insight: Fair insight present (Psych) Judgement: Fair judgement present (Psych) Results AMB Urinalysis, Automated UA Leukoctes 0 Jyoti/uL Last Edit by Sofie Cadet [facility] on 05/15/24 11:18 UA Nitrite Negative Last Edit by Sofie Cadet [facility] on 05/15/24 11:18 UA Urobilinogen 0.2 mg/dL Last Edit by Sofie Cadet A on 05/15/24 11:18 UA Protein 0 mg/dL Last Edit by Sfoie Cadet [facility] on 05/15/24 11:18 UA pH 6.5 Last Edit by Sofie Cadet [facility] on 05/15/24 11:18 UA Blood 80 Wilbur/uL Last Edit by Sofie Cadet [facility] on 05/15/24 11:18 UA Specific Ira 1.010 Last Edit by Sofie Cadet [facility] on 05/15/24 11:18 UA Ketone Negative Last Edit by Sofie Cadet [facility] on 05/15/24 11:18 UA Bilirubin 0 mg/dL Last Edit by Sofie Cadet [facility] on 05/15/24 11:18 UA Glucose 0 mg/dL Last Edit by Sofie Cadet [facility] on 05/15/24 11:18 Results Reviewed Results Reviewed: Laboratory Last Values Urine pH (Auto) 6.5 05/15/24 11:06 Specific Ira (Auto) 1.010 05/15/24 11:06 Urine Protein (Auto) 0 mg/dL 05/15/24 11:06 Glucose (UA)(Auto) 0 mg/dL 05/15/24 11:06 Urine Ketones (Auto) Negative 05/15/24 11:06 Urine Blood (Auto) 80 Wilbur/uL 05/15/24 11:06 Urine Nitrite (Auto) Negative 05/15/24 11:06 Urine Bilirubin (Auto) 0 mg/dL 05/15/24 11:06 Urine Urobilinogen (Auto) 0.2 mg/dL 05/15/24 11:06 Leukocyte Esterase (Auto) 0 Jyoti/uL 05/15/24 11:06 Assessment & Plan Assessment & Plan (1) Hematuria: Code(s): R31.9 - Hematuria, unspecified Category: Medical Plan In office urinalysis results reviewed the patient today; as noted above; will send for urine cytology. Will obtain CT urogram for further assessment evaluation. BUN creatinine ordered for imaging. Patient denies any bothersome urinary issues or concerns. He reports be happy with current voiding parameters. Follow-up next available in office cystoscopy with imaging and labs to be completed prior; or sooner with any issues, concerns, and or questions Orders: Orders AMB Urinalysis Automated Today Z13.9 - Encounter for screening, unspecified Blood Urea Nitrogen Today R31.9 - Hematuria, unspecified Creatinine Today R31.9 - Hematuria, unspecified Urine Cytology Today R31.9 - Hematuria, unspecified CT urogram Today R31.0 - Gross hematuria Patient Instructions: The patient had an opportunity to ask questions regarding the treatment plan. All questions were answered. Physical exam, labs, and imaging were discussed and reviewed in detail. As well as risks, benefits, and discussion of treatment choices. No major barriers to understanding were identified. The patient expressed understanding and agreement with the above treatment plan. The patient was made aware they should contact our office by phone for worsening of their current condition, the appearance of new symptoms, or with any questions or concerns. Compliance is encouraged with any medications and follow up testing that is ordered. It is a privilege to be allowed the opportunity to participate in? your urological care.? Again, if you have any questions or concerns If you have any questions or concerns please do not hesitate to contact me. The office is [phone]. This note is constructed using voice recognition software. While every effort has been made to ensure accuracy imaging nurse errors may have been included. Yours sincerely, NICANOR Hearn Coding Level of Care Code New Pt Level 3 (55305) Diagnoses Hematuria R31.9
== END 2024-05-15 11:44 | disposition home or self-care (01) ==
LOC: HO.HUSH 10:45
PROVIDERS: PCP Internal Medicine; Visit Provider Nurse Practitioner Family
DX: R31.9 Hematuria, unspecified (principal); Z13.9 Encounter for screening, unspecified
CPT/HCPCS: 99203

== ENCOUNTER 2024-05-16 08:37 | Outpatient (REF) | payer MEDICAID, SELFPAY ==
[2024-05-16 10:49] LABS: Alanine Aminotransferase 20 U/L (0-40); Albumin Level 3.9 g/dL (3.5-5.0); Alkaline Phosphatase 72 U/L (39-117); Anion Gap 8 (12-20); Aspartate Amino Transferase 25 U/L (5-37); Bilirubin Total 0.5 mg/dL (0.0-1.0); Blood Urea Nitrogen 20 mg/dL (9-16); Calcium 9.2 mg/dL (8.4-10.2); Carbon Dioxide 32 mmol/L (22-29); Chloride 104 mmol/L (96-108); Cholesterol 218 mg/dL (<200); Estimated Glomerular Filt Rate > 60; Glucose Fasting 98 mg/dL (60-99); HDL Cholesterol 41 mg/dL (>40); LDL Cholesterol Calculated 134 mg/dL (<100); Potassium 4.9 mmol/L (3.3-5.1); Sodium 139 mmol/L (135-145); Total Protein 7.8 g/dL (6.5-8.0); Triglycerides 218 mg/dL (<150)
[2024-05-16 10:53] LABS: PSA,Total (Free>4and<10) 1.71 ng/mL (0.00-4.00)
== END 2024-05-16 08:38 | disposition home or self-care (01) ==
LOC: HO.HMGCLDS 08:37
PROVIDERS: PCP Internal Medicine; Referring Provider Nurse Practitioner Family; Visit Provider Internal Medicine
DX: I25.10 Atherosclerotic heart disease of native coronary artery without angina pectoris (principal); R35.1 Nocturia; E78.5 Hyperlipidemia, unspecified
CPT/HCPCS: 36415; 80053; 80061; 84153

== ENCOUNTER 2024-05-19 13:11 | Outpatient (AMB) | payer MEDICAID, SELFPAY ==
--- NOTE | 2024-05-19 13:56 | MHC.PC.OV ---
Vital Signs 05/19/24 14:10 Height 5 ft 7 in Weight 192 lb BMI 30.1 BP 120/70 Blood Pressure Location Lt brachial Position Sitting Intake Visit Reasons: bp Intake Note: Patient here for a folloe up BP Game And Fish Protector Required: Yes Game And Fish Protector Language: Patient Portal Representative Name: Tiny Dasilva MD Information Interpreted: non-clinical & clinical Accompanied by: Daughter Allergies Penicillins Allergy (Intermediate, Verified 05/19/24 14:17) swelling Sulfa (Sulfonamide Antibiotics) Allergy (Intermediate, Verified 05/19/24 14:17) itching and rash cephalexin Allergy (Mild, Verified 05/19/24 14:17) swelling Medication List - Last Reconciled 05/19/24 by Tiny Dasilva MD albuterol sulfate 90 mcg/actuation 2 puffs inhalation Q4-6H PRN 30 days aspirin (Adult Aspirin Regimen) 81 mg PO DAILY blood pressure monitor As directed fluticasone propionate 50 mcg/actuation (Flonase Allergy Relief) 1 spray intranasal DAILY PRN 30 days indapamide 1.25 mg PO QAM 90 days lamotrigine 25 mg PO DAILY losartan 50 mg PO DAILY rosuvastatin 20 mg PO DAILY 90 days Tobacco use date assessed: 05/19/24 Fall risk assessment: No Falls in past year Last assessed Fall Risk: 05/19/24 Dental Screening Dental Screen Date: 05/19/24 Did you have a dental visit in the last 12 months?: Yes Did you have a dental problem in the last 6 months where you did not have access to dental care?: No Was dental information given to patient?: Patient has dentist HPI HPI Comments History of Present Illness Details The patient is a 73-year-old male presenting with elevated cholesterol levels and the management of epilepsy medication. The patient's cholesterol level, which was previously at 178 mg/dL, has increased to 218 mg/dL, while triglycerides were at 185 mg/dL, a rise from recent values. This increase is attributed to non-adherence to medication. The patient's blood sugar level is stable at 97 mg/dL. The patient was recently initiated on lamotrigine 25 mg due to findings of an epileptic focus from a recent study. He has experienced episodes of vertigo, which have improved but still occur with certain head movements. A prostate biopsy is planned, with recent blood tests showing favorable results. Hypertension stable with medications. He also has mild asthma and use rescue inhaler less than once a month. Accompanied by daughter. Not able to work for at least 6 months to to his seizures which has not reported any since starting the medication. He follows with Neurology. Mild ascending aortic dilation follow by cardiology. [facility] Medical History (Updated 05/19/24 @ 14:35 by Tiny Dasilva MD) Seizure Mild recurrent major depression Erectile dysfunction Right sided sciatica Left hip pain Chronic cough COVID-19 Abnormal x-ray Opacity of lung on imaging study Spitting up blood Blurry vision Pure hypercholesterolemia Essential hypertension Hyperlipidemia [place] (myocardial infarction) Surgical History History of back surgery History of throat surgery Hx of colonoscopy Hx of circumcision History of lung surgery Family History Father No problems noted. Mother HTN (hypertension) Family/Other HTN (hypertension) Diabetes Daughter No problems noted. Daughter No problems noted. Son No problems noted. Social History Housing: House Alcohol intake: current Alcohol intake frequency: holidays/special occasions only Patient Tobacco Use Status: Never used Tobacco e-Cigarette/Vaping Use: Never Used Second Hand Smoke Exposure: No service: No Current occupational status: unemployed Cognitive needs: No Hearing needs: No Vision needs: Yes Questionnaire PHQ-9 Over the last 2 weeks, how often have you been bothered by any of the following problems? 1. Little interest or pleasure in doing things: not at all 2. Feeling down, depressed, or hopeless: not at all 3. Trouble falling or staying asleep, or sleeping too much: not at all 4. Feeling tired or having little energy: not at all 5. Poor appetite or overeating: not at all 6. Feeling bad about yourself - or that you are a failure or have let yourself or your family down: not at all 7. Trouble concentrating on things, such as reading the newspaper or watching television: not at all 8. Moving or speaking so slowly that other people could have noticed. Or the opposite - being so fidgety or restless that you have been moving around a lot more than usual: not at all 9. Thoughts that you would be better off or of hurting yourself in some way: not at all Total score: 0 Depression Screening Interpretation: Negative Depression Screening Done: Yes 57221 - PHQ-9 Billing: Yes Source: Developed by Drs. Chris Felix, Melvina Rubio, Himanshu Guerrero and colleagues, with an educational edgar from [employer]. Thrive Questionnaire Date Thrive assessed: 05/19/24 I am a: Patient What is your living situation today?: I have a steady place to live Within the past 12 months, did the food you bought not last and you didn't have the money to get more?: Never true Within the past 12 months, did you worry whether your food would run out before you got money to buy more?: Never true Do you have trouble paying for medicines?: No Do you have trouble getting transportation to medical appointments?: No Do you have trouble paying your heating and electricity bill?: No Do you have trouble taking care of your child, family member or friend?: No Do you have trouble with day-to-day activities such as bathing, preparing meals, shopping, managing finances, etc.?: No Are you currently unemployed and looking for a job?: No Are you interested in more education?: No Please select the resources that you would like help with: None Currently or been in a relationship where the following occur: No concerns reported THRIVE Score: 0 AUDIT C Alcohol Use Questionnaire (AUDIT-C) 1. How often do you have a drink containing alcohol?: Monthly or less 2. How many drinks containing alcohol do you have on a typical day when you are drinking?: 1 or 2 3. How often do you have six or more drinks on one occasion?: Never Total Score: 1 MARIUSZ-7 AMB Questionnaire MARIUSZ-7 Date MARIUSZ - 7 assessed: 05/19/24 Feeling nervous, anxious, or on edge: 0 = Not at all Not being able to stop or control worryin = Not at all Worrying too much about different things: 0 = Not at all Trouble relaxin = Not at all Being so restless that it is hard to sit still: 0 = Not at all Becoming easily annoyed or irritable: 0 = Not at all Feeling afraid as if something awful might happen: 0 = Not at all Total MARIUSZ-7 score (0-4 normal; 5-9 mild; 10-14 moderate; 15-21 severe): 0 Source: Developed by Drs. Chris Felix, Melvina Rubio, Himanshu Guerrero and colleagues, with an educational edgar from [employer]. MARIUSZ-7 Assessment Billing MARIUSZ-7 Assessment Tool: MARIUSZ-7 Assessment 28293 Review of Systems Const All systems reviewed & are unremarkable except as noted in HPI and below Card Denies chest pain at rest, Denies chest pain with activity, Denies edema, Denies irregular heart rhythm, Denies claudication, Denies dyspnea, Denies dyspnea on exertion, Denies orthopnea, Denies paroxysmal nocturnal dyspnea and Denies slow heart rate Resp Denies cough, Denies dyspnea and Denies dyspnea on exertion GI Denies abdominal pain, Denies change in bowel habits, Denies excessive flatus, Denies nausea and Denies vomiting Physical exam (Primary Care) Vital Signs: Last Vital Signs BP 120/70 05/19/24 14:10 BMI result Body Mass Index 30.1 BMI Assessment/Plan discussion: High BMI High, discussed plan: lifestyle, weight reduction, dietary and physical activity Tobacco/Smoking Status: Tobacco use Status Tobacco use date assessed 05/19/24 05/19/24 14:14 Patient Tobacco Use Status Never used Tobacco 05/19/24 14:00 e-Cigarette/Vaping Use Never Used 05/19/24 14:00 PHQ-9: PHQ-9 Score PHQ-9: Total score 0 05/19/24 14:00 Depression Screening Interpretation: Negative Thrive Assessment: Date of Thrive Assessment Date Thrive assessed 05/19/24 05/19/24 14:00 Currently or been in a relationship where the following occur: No concerns reported Resp Effort & Inspection: normal respiratory effort Auscultation: clear to auscultation bilaterally Cardio Jugular venous distension: no JVD Rate: regular rate Rhythm: regular rhythm Heart sounds: S1 normal heart sound present and S2 normal heart sound present GI Inspection: Yes normal to inspection Palpation (GI): Soft to palpation and nontender Auscultation: normal bowel sounds Extrem General: Yes full ROM Office Procedures Flu Questionnaire Does the patient have a severe egg allergy?: No Immunizations Fluarix Triv 8730-3255 (PF) 45 mcg (15 mcg x 3)/0.5 mL IM syringe Performing Provider: Tiny Dasilva MD [facility] [place] [facility] Documented (not given) by: GERMAIN Ricketts on 05/19/24 14:14 Reason Not Given: Patient Refused Coding Level of Care Code Est Pt Level 4 (60799) Complex EM visit Add On G2211 Diagnoses Essential hypertension I10 Pure hypercholesterolemia E78.00 Seizure R56.9 Asthma J45.909 Mild ascending aorta dilatation I77.810 Additional Codes PHQ-9 - 18766 - PHQ-9 Billing: Yes ([id number]) MARIUSZ-7 Assessment Billing - MARIUSZ-7 Assessment Tool: MARIUSZ-7 Assessment 63618 ([id number]) Time Spent (min) 23 Assessment & Plan Assessment & Plan (1) Essential hypertension: Code(s): I10 - Essential (primary) hypertension Category: Medical (2) Pure hypercholesterolemia: Code(s): E78.00 - Pure hypercholesterolemia, unspecified Category: Medical (3) Seizure: Code(s): R56.9 - Unspecified convulsions Category: Medical (4) Asthma: Code(s): J45.909 - Unspecified asthma, uncomplicated Category: Medical (5) Mild ascending aorta dilatation: Comment: 3.9 cm on echo 02/23/2020 Code(s): I77.810 - Thoracic aortic ectasia Category: Medical Plan - Continue lamotrigine 25 mg for epilepsy management, emphasizing patient adherence - Scheduled prostate biopsy to proceed as planned and assess results - Monitor cholesterol levels closely, with emphasis on medication adherence and lifestyle changes - Follow up in four months for evaluation of cholesterol management and other ongoing health concerns Patient was informed and verbally consented to the use of an ambient scribe for clinic note documentation during this visit. I discussed with the patient the importance of adhering to prescribed medication, specifically lamotrigine for epilepsy, as it was initiated based on recent study findings. The elevated cholesterol levels were addressed, focusing on the need for medication adherence and potential lifestyle modifications to manage cardiovascular risk. The upcoming prostate biopsy was reviewed, and all necessary preparations were confirmed. The patient was advised on the next steps, including follow-up timelines and consultations with specialists, such as neurology and urology, as necessary. Orders: Orders Influenza [id number] Immunization Today Z23 - Encounter for immunization Lipid Panel 4 Months E78.5 - Hyperlipidemia, unspecified Comprehensive [place]. Panel Fast 4 Months I25.10 - Atherosclerotic heart disease of [place] coronary artery without angina pectoris Complete Blood Count Auto Diff 4 Months D64.9 - Anemia, unspecified IRON PROFILE 4 Months D64.9 - Anemia, unspecified Patient Instructions: - Take lamotrigine as prescribed and do not skip doses - Follow up with urologist for scheduled prostate biopsy - Continue to monitor blood pressure, blood sugar, and cholesterol levels - Schedule a follow-up appointment in four months for reassessment - Maintain a healthy diet and consider regular exercise to manage cholesterol - Contact the clinic if experiencing any new symptoms or adverse reactions to medications
[2024-05-19 14:10] VITALS: BP 120/70; BMI 30.1
== END 2024-05-19 14:33 | disposition home or self-care (01) ==
PROVIDERS: PCP Internal Medicine; Visit Provider Internal Medicine
DX: I10 Essential (primary) hypertension (principal); E78.00 Pure hypercholesterolemia, unspecified; R56.9 Unspecified convulsions; J45.909 Unspecified asthma, uncomplicated; I77.810 Thoracic aortic ectasia; Z23 Encounter for immunization

== ENCOUNTER → 2024-05-19 13:11 | Outpatient (BNVA) | payer MEDICAID, SELFPAY | PROVIDERS: PCP Internal Medicine; Visit Provider Internal Medicine | DX: I10 Essential (primary) hypertension (principal); E78.00 Pure hypercholesterolemia, unspecified; R56.9 Unspecified convulsions; I77.810 Thoracic aortic ectasia; J45.909 Unspecified asthma, uncomplicated | CPT/HCPCS: 90471; 96127; 99212 ==

== ENCOUNTER 2024-05-30 09:42 | Outpatient (REF) | payer MEDICAID, SELFPAY ==
--- OUTSIDE RECORDS SUMMARY | 2024-05-30 10:19 | XMS_ITS | Encounter Summary ---
Author Organization [employer] [facility] Address [address] [place] [address] Care Team Providers Care Medical Researcher Name Role Phone Unavailable Primary Care Provider Unavailabl e Encounter Details Date Type Department Care Team (Latest Contact Info) Description 09/20/2021 Abstract [facility] CONVERSIONS Dental, Provider, DDS Social History Tobacco Use Types Packs/Day Years Used Date Smoking Tobacco: Never Assessed Sex and Gender Information Value Date Recorded Sex Assigned at Male 02/27/2022 10:32 AM EDT Legal Sex Male 10:32 AM EDT Gender Identity Choose not to disclose 10:32 AM EDT Sexual Orientation Choose not to disclose 2021 10:32 AM EDT documented as of this encounter Plan of Treatment Not on file documented as of this encounter Visit Diagnoses Not on filedocumented in this encounter
--- OUTSIDE RECORDS SUMMARY | 2024-05-30 10:19 | XMS_ITS | Encounter Summary ---
Author Organization [employer] [facility] Address [address] [place] [address] Care Team Providers Care Wood Flooring Specialist Name Role Phone Unavailable Primary Care Provider Unavailabl e Encounter Details Date Type Department Care Team (Latest Contact Info) Description 12/18/2018 Abstract [facility] CONVERSIONS Dental, Provider, DDS Social History Tobacco [...]
--- OUTSIDE RECORDS SUMMARY | 2024-05-30 10:19 | XMS_ITS | Clinical Summary ---
Author Organization [employer] Address [address] [place] [address] Care Team Providers Care Shipping Associate Name Role Phone Unavailable Primary Care Provider Unavailabl e Social History Tobacco Use Types Packs/Day Years Used Date Smoking Tobacco: Never Assessed Sex and Gender Information Value Date Recorded Sex Assigned at Male 02/27/2022 10:32 AM EDT Legal Sex Male 10:32 AM EDT Gender Identity Choose not to disclose 2 10:32 AM EDT Sexual Orientation Choose not to disclose 2021 10:32 AM EDT Plan of Treatment Health Maintenance Due Date Last Done Comments CT Colonography 1950 Colonoscopy 1950 Colorectal Cancer Screening 1950 Depression Screening 1950 FIT DNA/Cologuard 1950 FIT 1950 FOBT 1950 Lipid Panel 1950 Sigmoidoscopy 1950 Alcohol/Substance Use Screening 1962 Tobacco Screening 1962 Zoster Vaccines (1 of 2) 2000 Pneumococcal Vaccine: 50+ Years (2 of 2 - PCV) 06/22/2018 06/22/2017 COVID-19 Vaccine ( season) 2023 01/31/2022, 04/26/2021, 10/22/2020, Additional history exists Influenza Vaccine (#1) 2023 2, 02/19/2021, 01/05/2019, Additional history exists RSV Patients and Patients Aged 60 years or older (1 - 1-dose 75+ series) 2025 DTaP/Tdap/Td Vaccines (2 - Td or Tdap) 06/22/2027 06/22/2017 HIB Vaccines Aged Out No longer eligi ble based on patient's age to complete this topic HPV Vaccines Aged Out No longer eligi ble based on patient's age to complete this topic Hepatitis A Vaccines Aged Out No long er eligible based on patient's age to complete this topic Hepatitis B Vaccines Aged Out No long er eligible based on patient's age to complete this topic IPV Vaccines Aged Out No longer eligi ble based on patient's age to complete this topic Meningococcal Vaccine Aged Out No lavinia matthew eligible based on patient's age to complete this topic RSV under 20 months Aged Out No longe r eligible based on patient's age to complete this topic Rotavirus Vaccines Aged Out No longer eligible based on patient's age to complete this topic
[2024-05-30 14:17] LABS: Blood Urea Nitrogen 15 mg/dL (9-16); Estimated Glomerular Filt Rate 58
== END 2024-05-30 09:43 | disposition home or self-care (01) ==
LOC: HO.HMGCLDS 09:42
PROVIDERS: PCP Internal Medicine; Visit Provider Nurse Practitioner Family
DX: R31.9 Hematuria, unspecified (principal)
CPT/HCPCS: 36415; 82565; 84520

== ENCOUNTER → 2024-06-04 13:14 | Outpatient (BNV) | payer MEDICAID, SELFPAY | PROVIDERS: PCP Internal Medicine; Visit Provider Radiology Diagnostic Radiology | DX: R31.0 Gross hematuria (principal); N28.1 Cyst of kidney, acquired | CPT/HCPCS: 74178 ==

== ENCOUNTER 2024-06-17 13:58 | Outpatient (AMB) | payer MEDICAID, SELFPAY ==
--- NOTE | 2024-06-17 14:11 | A.OFFVIS_ITS ---
Intake Visit Reasons: Cysto/CT/labs(set)Hematuria Intake Note: Patient Presents today for cystoscopy Urology Medication: None Antibiotic Allergies: Penicillins, Sulfa, Cephalexin Blood Thinners: Aspirin URO- G Disposable Cystoscope Lot:: [id number] Exp: 09/05/26 Meter Calibrator Required: Yes Accompanied by: Daughter Allergies Penicillins Allergy (Intermediate, Verified 06/17/24 14:49) swelling Sulfa (Sulfonamide Antibiotics) Allergy (Intermediate, Verified 06/17/24 14:49) itching and rash cephalexin Allergy (Mild, Verified 06/17/24 14:49) swelling HPI Comments Details: Jitendra is a pleasant French-speaking male. He is a patient of Dr. Dasilva. He is seen for the following urologic conditions - gross hematuria - lower urinary tract symptoms Gross hematuria Seen in [place] and went to emergency room Recommendations made for urology referral No prior episodes Denies workplace chemical exposure or nicotine dependence Stable prior PSA Cytology negative Urogram normal Cystoscopy - high bladder neck, trabeculation +1, cellules Start alpha-martín Review in six-month [facility] Medical History (Updated 06/17/24 @ 14:37 by Marlo Rahman MD) Seizure Mild recurrent major depression Erectile dysfunction Right sided sciatica Left hip pain Chronic cough COVID-19 Abnormal x-ray Opacity of lung on imaging study Spitting up blood Blurry vision Pure hypercholesterolemia Essential hypertension Hyperlipidemia [place] (myocardial infarction) Surgical History History of back surgery History of throat surgery Hx of colonoscopy Hx of circumcision History of lung surgery Family History Father No problems noted. Mother HTN (hypertension) Family/Other HTN (hypertension) Diabetes Daughter No problems noted. Daughter No problems noted. Son No problems noted. Social History Housing: House Alcohol intake: current Alcohol intake frequency: holidays/special occasions only Patient Tobacco Use Status: Never used Tobacco e-Cigarette/Vaping Use: Never Used Second Hand Smoke Exposure: No service: No Current occupational status: unemployed Cognitive needs: No Hearing needs: No Vision needs: Yes Review of Systems Const Denies chills and Denies fever(s) Card Reports no additional complaints and Denies syncope Resp Denies cough GI Denies abdominal pain and Denies heartburn Reports as per HPI and Denies change in libido Neuro Denies syncope Psych Denies change in libido Endo Denies change in libido Physical Exam Const General: cooperative, healthy appearing, comfortable and no acute distress Orientation/consciousness: patient oriented x3 HEENT Face and sinus: Yes normal facial exam Mouth: moist mucous membranes Neck Neck: Yes normal visual inspection, Yes full ROM and Yes trachea midline Chest Chest palpation & inspection: normal inspection of the chest Resp Effort & Inspection: normal respiratory effort, able to speak in complete sentences and no respiratory distress GI Inspection: Yes normal to inspection Back/Spine/Pelvis Cervical Spine: normal cervical lordosis Thoracic/Lumbar Spine: thoracic and lumbar spine normal to inspection Skin General skin exam: no rashes or lesions noted Neuro General: patient oriented x3, gait normal, tone normal and moves all extremities Extrem General: Yes normal to inspection and Yes capillary refill normal Office Procedures Cystoscopy Consent Discussed risk and benefit or proposed procedure with the patient. Information consent for procedure given to the patient. Discussed technical aspects, risks, benefits and alternatives in full. Addressed all of the patient's questions and concerns regarding the procedure. The patient demonstrated knowledge and understanding. They wish to proceed with this procedure. Preparation The patient was prepped in the usual manner. A commercial credit specialist was present and in the room. Genitalia was prepped with betadine solution in a sterile manner. Lidocaine Jelly 2% was placed into the urethra and 16Fr flexible Olympus cystoscope was inserted into the meatus after adequate lubrication. Procedure Cystoscopy performed using a disposable Seeker Wirelessvue digital 16 Kiswahili cystoscope. Meatus uncircumcised Urethra anterior and posterior urethra normal Prostatic Urethra high-riding bladder neck Bladder examination with retroflexion of cystoscope Bladder Orifices normal shape and position Bladder Capacity median Trabeculations grade 1/2 Cellule Formation ES Diverticulum Formation - Mucosal Erythema diffuse neovascularity Bladder Tumor - 01396-[id number] DISPOSABLE SCOPE URO-G FLEXIBLE SCOPE Procedure code (CPT) selection complete Office Meds lidocaine HCl 2 % mucosal jelly in applicator Performing Provider: Marlo Rahman MD [facility] Administered by: Destinee Marquez RN on 06/17/24 14:31 Dose Route Admin Location Dispensed Lot Number Expiration Date NDC Disease And Insect Control Boss 10 mL intra-urethral 10 mL nitrofurantoin monohydrate/macrocrystals 100 mg capsule Performing Provider: Marlo Rahman MD Performing Location[place] [facility] Administered by: Destinee Marquez RN on 06/17/24 14:31 Dose Route Admin Location Dispensed Lot Number Expiration Date NDC Disease And Insect Control Boss 100 mg PO 1 cap Results AMB Urinalysis, Automated UA Leukoctes 0 Jyoti/uL Last Edit by [employer] on 06/17/24 14:51 UA Nitrite Last Edit by [employer] on 06/17/24 14:51 UA Urobilinogen 0.2 mg/dL Last Edit by [employer] Roxanne on 06/17/24 14:51 UA Protein 0 mg/dL Last Edit by [email or web address] on 06/17/24 14:51 UA pH 7.5 Last Edit by [email or web address] on 06/17/24 14:51 UA Blood 80 Wilbur/uL Last Edit by [email or web address] on 06/17/24 14:51 UA Specific Collins 1.010 Last Edit by [email or web address] on 06/17/24 14:51 UA Ketone Last Edit by [employer] on 06/17/24 14:51 UA Bilirubin 0 mg/dL Last Edit by [email or web address] on 06/17/24 14:51 UA Glucose 0 mg/dL Last Edit by [employer] on 06/17/24 14:51 Assessment & Plan Assessment & Plan (1) Bladder outlet obstruction: Code(s): N32.0 - Bladder-neck obstruction Category: Medical Plan Start tamsulosin Six-month follow-up Orders: Orders AMB Cystoscopy Today R31.9 - Hematuria, unspecified Medications: New tamsulosin 0.4 mg PO BEDTIME 90 days 90 caps 1RF N13.8 - Other obstructive and reflux uropathy, N32.0 - Bladder-neck obstruction, N40.1 - Benign prostatic hyperplasia with lower urinary tract symptoms Patient Instructions: This note is constructed using voice recognition software. While every effort has been made to ensure accuracy fox farmer errors may have been included. Imaging studies, laboratory and physical exam results were discussed and reviewed in detail. No major barriers to patient understanding were identified. An opportunity to ask questions regarding the treatment plan was provided. All questions were answered. The patient expressed understanding and agreement with the above treatment plan. The patient is aware they should contact our office by phone for worsening of their current condition or the appearance of new urologic symptoms. Compliance is encouraged with any medications and followup testing that is ordered. It is a privilege to participate in the urologic care of your patient. If you have any questions or concerns regarding treatment for the above conditions, or other urologic issues, please do not hesitate to contact me. The office telephone contact is [phone]. Sincerely, Dr Marlo Rahman MD, [facility] - Urology Compassionate Specialist Care for the Genitourinary System Coding Level of Care Code Est Pt Level 4 (32762) Diagnoses Bladder outlet obstruction N32.0 CPT Codes Cystoscopy - CPT: 26974-Sohtwrzdrq ([id number])
--- OUTSIDE RECORDS SUMMARY | 2024-06-17 15:00 | XMS_ITS | Encounter Summary ---
Author Organization [facility] Address [address] [place] [address] Care Team Providers Care Sales Service Assistant Name Role Phone Unavailable Primary Care Provider Unavailabl e Encounter Details Date Type Department Care Team (Latest Contact Info) Description 12/18/2018 Abstract [facility] CONVERSIONS Dental, Provider, DDS Social History Tobacco [...]
--- OUTSIDE RECORDS SUMMARY | 2024-06-17 15:00 | XMS_ITS | Clinical Summary ---
Author Organization [employer] Address [address] [place] [address] Care Team Providers Care Business Coordinator Name Role Phone Unavailable Primary Care Provider [...]
--- OUTSIDE RECORDS SUMMARY | 2024-06-17 15:00 | XMS_ITS | Encounter Summary ---
Author Organization [employer] [facility] Address [address] [place] [address] Care Team Providers Care Grazing Aide Name Role Phone Unavailable Primary Care Provider Unavailabl e Encounter Details Date Type Department Care Team (Latest Contact Info) Description 09/20/2021 Abstract [facility] CONVERSIONS Dental, Provider, DDS Social History Tobacco [...]
== END 2024-06-17 14:45 | disposition home or self-care (01) ==
PROVIDERS: PCP Internal Medicine; Visit Provider Urology
DX: N32.0 Bladder-neck obstruction (principal); R31.9 Hematuria, unspecified; Z13.9 Encounter for screening, unspecified
CPT/HCPCS: 52000; 99214

== ENCOUNTER → 2024-06-17 13:58 | Outpatient (BNVA) | payer MEDICAID, SELFPAY | PROVIDERS: PCP Internal Medicine; Visit Provider Urology | DX: N40.1 Benign prostatic hyperplasia with lower urinary tract symptoms (principal); N32.0 Bladder-neck obstruction; N13.8 Other obstructive and reflux uropathy; R31.9 Hematuria, unspecified | CPT/HCPCS: 52000; 81003; 99212 ==

== ENCOUNTER 2024-09-29 10:17 | Outpatient (REF) | payer MEDICAID, SELFPAY ==
[2024-09-29 10:26] LABS: MANUAL DIFF FLAG NO
[2024-09-29 11:04] LABS: Basophils Percent Auto 0.5 % (0-2); Eosinophils Absolute Auto 0.2 X10*3/uL (0.0-0.4); Eosinophils Percent Auto 5.2 % (0-4); Hemoglobin 12.6 g/dl (14.0-18.0); Imm Gran Abs Auto 0.01 X10*3/uL (0.00-0.03); Imm Gran Pct Auto 0.2 % (0.0-0.4); Lymphocytes Absolute Auto 2.2 X10*3/uL (1.2-4.9); Lymphocytes Percent Auto 52.5 % (20-40); Mean Corpuscular HGB Conc 30.7 g/dl (31.0-36.0); Mean Corpuscular Volume 81.3 fL (80.0-98.0); Mean Platelet Volume 9.1 fL (9.4-12.4); Monocytes Absolute Auto 0.4 X10*3/uL (0.1-1.2); Monocytes Percent Auto 10.3 % (2-11); NRBC Pct Auto 0.5 /100WBC (0.0-0.2); Neutrophils Absolute Auto 1.3 x10*3/uL (2.0-8.3); Neutrophils Percent Auto 31.3 % (45-73); Platelet Count 207 X10*3/uL (160-400); Red Blood Count 5.04 X10*6/uL (4.60-5.80); Red Cell Distribution Width 14.6 % (11.0-16.0); White Blood Count 4.3 X10*3/uL (4.8-10.8)
[2024-09-29 11:58] LABS: Alanine Aminotransferase 23 U/L (0-40); Albumin Level 4.3 g/dL (3.5-5.0); Alkaline Phosphatase 59 U/L (39-117); Anion Gap 12 (12-20); Aspartate Amino Transferase 22 U/L (5-37); Bilirubin Total 0.8 mg/dL (0.0-1.0); Blood Urea Nitrogen 21 mg/dL (9-16); Calcium 9.6 mg/dL (8.4-10.2); Carbon Dioxide 30 mmol/L (22-29); Chloride 104 mmol/L (96-108); Cholesterol 138 mg/dL (<200); Estimated Glomerular Filt Rate 55; Glucose Fasting 98 mg/dL (60-99); HDL Cholesterol 40 mg/dL (>40); Iron 40 mcg/dL (45-160); LDL Cholesterol Calculated 74 mg/dL (<100); Percent Iron Saturation 12 % (15-50); Potassium 4.6 mmol/L (3.3-5.1); Sodium 141 mmol/L (135-145); Total Iron Binding Capacity 345 mcg/dL (228-428); Total Protein 7.5 g/dL (6.5-8.0); Triglycerides 121 mg/dL (<150); Unsaturated Iron Binding 305 ug/dL
== END 2024-09-29 10:18 | disposition home or self-care (01) ==
LOC: HO.LAB 10:17
PROVIDERS: PCP Internal Medicine; Visit Provider Internal Medicine
DX: D64.9 Anemia, unspecified (principal); E78.5 Hyperlipidemia, unspecified; I25.10 Atherosclerotic heart disease of native coronary artery without angina pectoris
CPT/HCPCS: 36415; 80053; 80061; 83540; 85025

== ENCOUNTER 2024-10-06 09:52 | Outpatient (AMB) | payer MEDICAID, SELFPAY ==
--- NOTE | 2024-10-06 10:17 | A.OFFVIS_ITS ---
Vital Signs 10/06/24 10:21 Height 5 ft 7 in Weight 195 lb 12.328 oz BMI 30.7 BP 120/74 Blood Pressure Location Lt brachial Position Sitting Pulse 56 Pulse Source Monitor Intake Visit Reasons: Follow up Intake Note: f/up Assault Amphibious Vehicle Crewman Required: Yes Assault Amphibious Vehicle Crewman Language: Stove Mechanic Name: [email or web address] Accompanied by: Self / Same As Patient Allergies Penicillins Allergy (Intermediate, Verified 06/17/24 14:49) swelling Sulfa (Sulfonamide Antibiotics) Allergy (Intermediate, Verified 06/17/24 14:49) itching and rash cephalexin Allergy (Mild, Verified 06/17/24 14:49) swelling Medication List - Last Reconciled 10/06/24 by Peter Raphael MD albuterol sulfate 90 mcg/actuation 2 puffs inhalation Q4-6H PRN 30 days aspirin (Adult Aspirin Regimen) 81 mg PO DAILY blood pressure monitor As directed fluticasone propionate 50 mcg/actuation (Flonase Allergy Relief) 1 spray intranasal DAILY PRN 30 days indapamide 1.25 mg PO QAM 90 days lamotrigine 25 mg PO DAILY losartan 50 mg PO DAILY mirtazapine 15 mg PO BEDTIME 30 days rosuvastatin 20 mg PO DAILY tamsulosin 0.4 mg PO BEDTIME 90 days HPI Comments Details: 73-year-old gentleman here for follow-up. He has background history of reported PA while in [facility] where he had PCI done. He had chest pain episode last year and was admitted at [facility] when he underwent exercise stress testing. Stress test was essentially normal. He had hypertensive response to exercise. His blood pressure has been well controlled with amlodipine. He is denying any chest pain or shortness of breath. He has been taking baby aspirin without any issues. He was previously on atorvastatin 40 mg. It appears he developed muscle aches and his atorvastatin was discontinued. I started him on Crestor on Sunday and Sunday which was changed to daily as he tolerated. It appears he had low back pain which was later diagnosed to be related to musculoskeletal/nerve pain. With his back pain he has stopped his Crestor. He is denying any symmetric arm or leg pain. Denying any chest pain or shortness of breath. After discussion he was started on Crestor. 10/10/2023: He is here for follow-up. He is denying any chest discomfort shortness of breath. He has been taking rosuvastatin 20 mg daily without any side effects. Blood pressure is well controlled. No dizziness or lightheadedness. 04/09/2024: We did a video telehealth visit. He is in [place] and did not want to misses appointment. He is denying any symptoms. No chest pain or shortness of breath. Taking medication regularly. Daughter said that they do not have a blood pressure cuff to check his blood pressure but his blood pressure readings going back to May 2023 has been stable. Echocardiography recently done was discussed with the patient. He has mild dilation of aorta. [facility] Medical History Seizure Mild recurrent major depression Erectile dysfunction Right sided sciatica Left hip pain Chronic cough COVID-19 Abnormal x-ray Opacity of lung on imaging study Spitting up blood Blurry vision Pure hypercholesterolemia Essential hypertension Hyperlipidemia [place] (myocardial infarction) Surgical History History of back surgery History of throat surgery Hx of colonoscopy Hx of circumcision History of lung surgery Family History Father No problems noted. Mother HTN (hypertension) Family/Other HTN (hypertension) Diabetes Daughter No problems noted. Daughter No problems noted. Son No problems noted. Social History Housing: House Alcohol intake: current Alcohol intake frequency: holidays/special occasions only Patient Tobacco Use Status: Never used Tobacco e-Cigarette/Vaping Use: Never Used Second Hand Smoke Exposure: No service: No Current occupational status: unemployed Cognitive needs: No Hearing needs: No Vision needs: Yes Review of Systems Const Denies chills, Denies fatigue, Denies fever(s), Denies frequent falls, Denies weakness, Denies weight gain and Denies weight loss ENT Denies dizziness Card Denies chest pain, Denies leg edema, Denies lightheadedness, Denies palpitations, Denies dyspnea and Denies dyspnea on exertion Resp Denies cough, Denies dyspnea and Denies dyspnea on exertion GI Denies hematochezia Musc Denies abnormal gait, Denies muscle weakness, Denies numbness, Denies radiating pain into limb and Denies tingling Neuro Denies abnormal gait, Denies dizziness, Denies frequent falls, Denies numbness, Denies tingling and Denies weakness Endo Denies fatigue and Denies palpitations Physical Exam Vital Signs: Last Vital Signs Pulse 56 10/06/24 10:21 BP 120/74 10/06/24 10:21 BMI result Body Mass Index 30.7 GENERAL APPEARANCE: in no acute distress, pleasant. NECK: no carotid bruit, no jugular venous distention. SKIN: no suspicious lesions, warm and dry. HEART: no murmurs, regular rate and rhythm. LUNGS: clear to auscultation bilaterally. ABDOMEN: soft, nontender. EXTREMITIES: no edema. PERIPHERAL PULSES: equal. NEUROLOGIC: No gross deficits, AAO X 3 Office Procedures EKG Details: Sinus bradycardia 56 beats per minute, can not rule out inferior infarct, QTC 370 milliseconds. [id number], Complete Assessment & Plan Assessment & Plan (1) Essential hypertension: Code(s): I10 - Essential (primary) hypertension Category: Medical (2) CAD (coronary artery disease): Code(s): I25.10 - Atherosclerotic heart disease of [place] coronary artery without angina pectoris Category: Medical (3) Mild ascending aorta dilatation: Comment: 3.9 cm on echo 02/23/2020 Code(s): I77.810 - Thoracic aortic ectasia Category: Medical Plan 73-year-old gentleman who is here for follow-up. Denying any exertional symptoms. He had heart attack reportedly when he was in [place] many years ago. He said he had right-sided chest discomfort at that time. He has not had any similar symptoms recently. Clinically stable currently. Blood pressure well controlled. He will see us back in 6 months. He will report to us if he had any change in symptoms. Thank you for allowing me to participate in the care of your patient. Please feel free to contact me if you have any questions. Coding Level of Care Code Est Pt Level 3 (22999) Diagnoses Essential hypertension I10 CAD (coronary artery disease) I25.10 Mild ascending aorta dilatation I77.810 CPT Codes EKG - CPT: 63881-Mwuyjkkikmzfwyvsv, Complete ([id number])
[2024-10-06 10:21] VITALS: BP 120/74; PULSE 56; BMI 30.7
--- OUTSIDE RECORDS SUMMARY | 2024-10-06 10:40 | XMS_ITS | Encounter Summary ---
Author Organization [employer] Address [address] [place] [address] Care Team Providers Care Internal Investigator Name Role Phone Unavailable Primary Care Provider Unavailabl e Encounter Details Date Type Department Care Team (Latest Contact Info) Description 09/20/2021 Abstract [facility] CONVERSIONS Dental, Provider, DDS Social History [...]
== END 2024-10-06 10:37 | disposition home or self-care (01) ==
LOC: HO.HCS 09:52
PROVIDERS: PCP Internal Medicine; Visit Provider Internal Medicine Cardiovascular Disease
DX: I10 Essential (primary) hypertension (principal); I25.10 Atherosclerotic heart disease of native coronary artery without angina pectoris; I77.810 Thoracic aortic ectasia
CPT/HCPCS: 93010; 99213

== ENCOUNTER → 2024-10-06 09:52 | Outpatient (BNVA) | payer MEDICAID, SELFPAY | PROVIDERS: PCP Internal Medicine; Visit Provider Internal Medicine Cardiovascular Disease | DX: I10 Essential (primary) hypertension (principal); I25.2 Old myocardial infarction; I25.10 Atherosclerotic heart disease of native coronary artery without angina pectoris; I77.810 Thoracic aortic ectasia | CPT/HCPCS: 93005; 99212 ==

== ENCOUNTER 2024-10-07 10:40 | Outpatient (AMB) | payer MEDICAID, SELFPAY ==
--- NOTE | 2024-10-07 11:01 | A.OFFPC_ITS ---
Vital Signs 10/07/24 11:04 Height 5 ft 7 in Weight 196 lb BMI 30.7 BP 122/68 Blood Pressure Location Lt brachial Position Sitting Pulse 78 Pulse Source Pulse Oximeter Temp 97.3 F Temp Source Temporal Artery Scan Pulse Oximetry (%) 97 Oxygen Delivery Method Room Air Intake Visit Reasons: bp,lipids Intake Note: Patient is here to follow up on BP, Lipids. Neuro Urologist Required: No Information Interpreted: non-clinical & clinical Equine Pharmacology Technician: Not Required per policy Accompanied by: Self / Same As Patient Allergies Penicillins Allergy (Intermediate, Verified 10/07/24 11:34) swelling Sulfa (Sulfonamide Antibiotics) Allergy (Intermediate, Verified 10/07/24 11:34) itching and rash cephalexin Allergy (Mild, Verified 10/07/24 11:34) swelling Medication List - Last Reconciled 10/07/24 by Tiny Dasilva MD albuterol sulfate 90 mcg/actuation 2 puffs inhalation Q4-6H PRN 30 days aspirin (Adult Aspirin Regimen) 81 mg PO DAILY blood pressure monitor As directed fluticasone propionate 50 mcg/actuation (Flonase Allergy Relief) 1 spray intran olga DAILY PRN 30 days indapamide 1.25 mg PO QAM 90 days lamotrigine 25 mg PO DAILY losartan 50 mg PO DAILY mirtazapine 15 mg PO BEDTIME 30 days rosuvastatin 20 mg PO DAILY tamsulosin 0.4 mg PO BEDTIME 90 days Tobacco use date assessed: 10/07/24 Fall risk assessment: No Falls in past year Last assessed Fall Risk: 10/07/24 Dental Screening Dental Screen Date: 05/19/24 Did you have a dental visit in the last 12 months?: No Did you have a dental problem in the last 6 months where you did not have access to dental care?: No Was dental information given to patient?: Patient has dentist HPI HPI Comments History of Present Illness Details The patient is a 73-year-old male presenting for a follow-up for essential hypertension, asthma, hypercholesterolemia, benign prostatic hyperplasia, seizure disorder, and depression with concomitant anxiety and insomnia. He reports blood pressure is well-controlled and cholesterol levels are stable on statins. No significant side effects were observed. Seizure activity has not occurred in the past three months while on lamotrigine under neurology supervision. The patient seeks a refill for mirtazapine due to persistent depression and anxiety symptoms. Additionally, he has B-cell cytopenia, with low white cells and hemoglobin, without signs of active bleeding. Glenys sulfate has been prescribed, and he will be referred to hematology oncology for further assessment. [facility] Medical History (Updated 10/07/24 @ 11:42 by Tiny Dasilva MD) Seizure Mild recurrent major depression Erectile dysfunction Right sided sciatica Left hip pain Chronic cough COVID-19 Abnormal x-ray Opacity of lung on imaging study Spitting up blood Blurry vision Pure hypercholesterolemia Essential hypertension Hyperlipidemia [place] (myocardial infarction) Surgical History History of back surgery History of throat surgery Hx of colonoscopy Hx of circumcision History of lung surgery Family History Father No problems noted. Mother HTN (hypertension) Family/Other HTN (hypertension) Diabetes Daughter No problems noted. Daughter No problems noted. Son No problems noted. Social History Housing: House Alcohol intake: current Alcohol intake frequency: holidays/special occasions only Patient Tobacco Use Status: Never used Tobacco e-Cigarette/Vaping Use: Never Used Second Hand Smoke Exposure: No service: No Current occupational status: unemployed Cognitive needs: No Hearing needs: No Vision needs: Yes Questionnaire PHQ-9 Over the last 2 weeks, how often have you been bothered by any of the following problems? 1. Little interest or pleasure in doing things: not at all 2. Feeling down, depressed, or hopeless: not at all 3. Trouble falling or staying asleep, or sleeping too much: several days 4. Feeling tired or having little energy: not at all 5. Poor appetite or overeating: not at all 6. Feeling bad about yourself - or that you are a failure or have let yourself or your family down: not at all 7. Trouble concentrating on things, such as reading the newspaper or watching television: not at all 8. Moving or speaking so slowly that other people could have noticed. Or the opposite - being so fidgety or restless that you have been moving around a lot more than usual: not at all 9. Thoughts that you would be better off or of hurting yourself in some way: not at all Total score: 1 Depression Screening Interpretation: Positive Depression Screening Follow-up: Existing condition and Follow-up Visit Requested Depression Screening Done: Yes 57133 - PHQ-9 Billing: Yes Source: Developed by Drs. Chris Felix, Melvina Rubio, Himanshu Guerrero and colleagues, with an educational edgar from [employer]. Thrive Questionnaire Date Thrive assessed: 05/19/24 I am a: Patient What is your living situation today?: I have a steady place to live Within the past 12 months, did the food you bought not last and you didn't have the money to get more?: Never true Within the past 12 months, did you worry whether your food would run out before you got money to buy more?: Never true Do you have trouble paying for medicines?: No Do you have trouble getting transportation to medical appointments?: No Do you have trouble paying your heating and electricity bill?: No Do you have trouble taking care of your child, family member or friend?: No Do you have trouble with day-to-day activities such as bathing, preparing meals, shopping, managing finances, etc.?: No Are you currently unemployed and looking for a job?: No Are you interested in more education?: No Please select the resources that you would like help with: None Currently or been in a relationship where the following occur: No concerns repor klaudia THRIVE Score: 0 AUDIT C Alcohol Use Questionnaire (AUDIT-C) 1. How often do you have a drink containing alcohol?: Never Total Score: 0 MARIUSZ-7 AMB Questionnaire MARIUSZ-7 Date MARIUSZ - 7 assessed: 10/07/24 Feeling nervous, anxious, or on edge: 0 = Not at all Not being able to stop or control worryin = Several days Worrying too much about different things: 1 = Several days Trouble relaxin = Not at all Being so restless that it is hard to sit still: 0 = Not at all Becoming easily annoyed or irritable: 0 = Not at all Feeling afraid as if something awful might happen: 0 = Not at all Total MARIUSZ-7 score (0-4 normal; 5-9 mild; 10-14 moderate; 15-21 severe): 2 Source: Developed by Drs. Chris Felix, Melvina Rubio, Himanshu Guerrero and colleagues, with an educational edgar from [employer]. MARIUSZ-7 Assessment Billing MARIUSZ-7 Assessment Tool: MARIUSZ-7 Assessment 41743 Review of Systems Const All systems reviewed & are unremarkable except as noted in HPI and below Card Denies chest pain at rest, Denies chest pain with activity, Denies edema, Denies irregular heart rhythm, Denies claudication, Denies dyspnea, Denies dyspnea on exertion, Denies orthopnea, Denies paroxysmal nocturnal dyspnea and Denies slow heart rate Resp Denies cough, Denies dyspnea and Denies dyspnea on exertion GI Denies abdominal pain, Denies change in bowel habits, Denies excessive flatus, Denies nausea and Denies vomiting Denies urinary hesitancy, Denies urinary incontinence and Denies urinary urgency Musc Denies abnormal gait, Denies atrophy, Denies deformity and Denies limited range of motion Skin/Breast Denies bleeding lesions, Denies changing lesions and Denies rash Neuro Denies abnormal gait, Denies behavioral changes and Denies lack of coordination Psych Denies behavioral changes Physical exam (Primary Care) Vital Signs: Last Vital Signs Temp 97.3 F 10/07/24 11:04 Pulse 78 10/07/24 11:04 BP 122/68 10/07/24 11:04 Pulse Ox 97 10/07/24 11:04 Oxygen Delivery Method Room Air 10/07/24 11:04 BMI result Body Mass Index 30.7 Tobacco/Smoking Status: Tobacco use Status Tobacco use date assessed 10/07/24 10/07/24 11:03 Patient Tobacco Use Status Never used Tobacco 10/07/24 11:03 e-Cigarette/Vaping Use Never Used 10/07/24 11:03 PHQ-9: PHQ-9 Score PHQ-9: Total score 1 10/07/24 11:16 Depression Screening Interpretation: Positive Depression Screening Follow-up: Existing condition and Follow-up Visit Requested Thrive Assessment: Date of Thrive Assessment Date Thrive assessed 05/19/24 10/07/24 11:03 Currently or been in a relationship where the following occur: No concerns reported Resp Effort & Inspection: normal respiratory effort Auscultation: clear to auscultation bilaterally Cardio Jugular venous distension: no JVD Rate: regular rate Rhythm: regular rhythm Heart sounds: S1 normal heart sound present and S2 normal heart sound present Neuro General: no focal motor deficits Extrem General: Yes full ROM Psych Appearance: grossly normal Coding Level of Care Code Est Pt Level 4 (96596) Complex EM visit Add On G2211 Diagnoses Seizure R56.9 Bicytopenia D75.89 Asthma J45.909 Essential hypertension I10 Pure hypercholesterolemia E78.00 Additional Codes PHQ-9 - 03946 - PHQ-9 Billing: Yes ([id number]) MARIUSZ-7 Assessment Billing - MARIUSZ-7 Assessment Tool: MARIUSZ-7 Assessment 72997 ([id number]) Time Spent (min) 23 Assessment & Plan Assessment & Plan (1) Seizure: Code(s): R56.9 - Unspecified convulsions Category: Medical (2) Bicytopenia: Code(s): D75.89 - Other specified diseases of blood and blood-forming organs Category: Medical (3) Asthma: Code(s): J45.909 - Unspecified asthma, uncomplicated Category: Medical (4) Essential hypertension: Code(s): I10 - Essential (primary) hypertension Category: Medical (5) Pure hypercholesterolemia: Code(s): E78.00 - Pure hypercholesterolemia, unspecified Category: Medical Plan We will continue monitoring essential hypertension and manage asthma as both are stable. Hypercholesterolemia remains under control on statins. Seizure disorder is managed with lamotrigine, with no recent occurrences. A mirtazapine refill is provided to address depression with anxiety and insomnia. For the documented B- cell cytopenia, glenys sulfate is prescribed, and a referral to hematology oncology is made for further evaluation. The management plan takes into account current symptomatology and past treatment responses to ensure optimal care. Patient was informed and verbally consented to the use of an ambient scribe for clinic note documentation during this visit. I discussed with the patient the continuation of his current medication regimen for hypertension, asthma, and hypercholesterolemia given their stable control. We addressed his depression and anxiety with insomnia, and I provided a refill for mirtazapine. The patient understands the importance of monitoring his seizure disorder with neurology. I explained the necessity of managing his B- cell cytopenia with glenys sulfate and the referral to hematology oncology. We discussed the importance of follow-up and monitoring for potential complications, ensuring the patient has a clear understanding of his care plan moving forward. Orders: Referrals Hematology & Oncology Referral D75.89 - Other specified diseases of blood and blood-forming organs Medications: New ferrous sulfate 325 mg PO DAILY 90 days 90 tabs 0RF Changed From aspirin (Adult Aspirin Regimen) 81 mg PO DAILY To aspirin (Adult Aspirin Regimen) 81 mg PO DAILY 90 days 90 tabs 3RF Refilled albuterol sulfate 90 mcg/actuation 2 puffs inhalation Q4-6H 30 days PRN 1 ea 6RF shortness of breath or wheezing mirtazapine 15 mg PO BEDTIME 30 days 30 tabs 7RF Patient Instructions: - Continue current medications for hypertension, asthma, and cholesterol. - Take prescribed glenys sulfate as directed. - Follow up with hematology oncology. - Report any new symptoms or concerns immediately. - Follow up as scheduled for routine monitoring of chronic conditions.
[2024-10-07 11:04] VITALS: BP 122/68; PULSE 78; TEMP 36.3; O2SAT 97; BMI 30.7
--- OUTSIDE RECORDS SUMMARY | 2024-10-07 12:34 | XMS_ITS | Encounter Summary ---
Author Organization [employer] Address [address] [place] [address] Care Team Providers Care Location Analyst Name Role Phone Unavailable Primary Care Provider Unavailabl e Encounter Details Date Type Department Care Team (Latest Contact Info) Description 09/20/2021 Abstract [facility] CONVERSIONS Dental, Provider, DDS Social History Tobacco [...]
== END 2024-10-07 11:45 | disposition home or self-care (01) ==
LOC: HO.HMCH 10:41
PROVIDERS: PCP Internal Medicine; Visit Provider Internal Medicine
DX: R56.9 Unspecified convulsions (principal); D75.89 Other specified diseases of blood and blood-forming organs; J45.909 Unspecified asthma, uncomplicated; I10 Essential (primary) hypertension; E78.00 Pure hypercholesterolemia, unspecified

== ENCOUNTER → 2024-10-07 10:40 | Outpatient (BNVA) | payer MEDICAID, SELFPAY | PROVIDERS: PCP Internal Medicine; Visit Provider Internal Medicine | DX: J45.909 Unspecified asthma, uncomplicated (principal); R91.8 Other nonspecific abnormal finding of lung field; R56.9 Unspecified convulsions; D75.89 Other specified diseases of blood and blood-forming organs; I10 Essential (primary) hypertension; E78.00 Pure hypercholesterolemia, unspecified; N40.0 Benign prostatic hyperplasia without lower urinary tract symptoms; Z79.82 Long term (current) use of aspirin; Z13.31 Encounter for screening for depression; Z13.30 Encounter for screening examination for mental health and behavioral disorders, unspecified | CPT/HCPCS: 96127; 99212 ==

== ENCOUNTER 2024-10-07 12:54 | Outpatient (AMB) | payer MEDICAID, SELFPAY ==
[2024-10-07 13:39] VITALS: BP 110/62; PULSE 58; O2SAT 98; BMI 30.7
--- NOTE | 2024-10-07 13:39 | MHC.OFFVIS ---
Vital Signs 10/07/24 13:39 Height 5 ft 7 in Weight 196 lb BMI 30.7 BP 110/62 Blood Pressure Location Rt brachial Position Sitting Pulse 58 Pulse Source Pulse Oximeter Pulse Oximetry (%) 98 Oxygen Delivery Method Room Air Intake Visit Reasons: cough Stock Patch Sawyer Required: Yes Stock Patch Sawyer Name: Sofie Tripp Allergies Penicillins Allergy (Intermediate, Verified 10/07/24 13:43) swelling Sulfa (Sulfonamide Antibiotics) Allergy (Intermediate, Verified 10/07/24 13:43) itching and rash cephalexin Allergy (Mild, Verified 10/07/24 13:43) swelling HPI HPI cough: Details: 73-year-old gentleman, lifetime nonsmoker, [place], [place], with underlying history of right upper lobe abscess resection in 1984, followed for abnormal CT scan and cough. 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 He denies family history of lung disease.? His PET-CT was negative for increased activity.?He continues to use albuterol MDI with good control of his dyspnea using it not more often than once a day.? He has had prior COVID-19, but he has essentially required to baseline.? After the last office visit patient had no changes in his symptoms. [facility] Medical History Seizure Mild recurrent major depression Erectile dysfunction Right sided sciatica Left hip pain Chronic cough COVID-19 Abnormal x-ray Opacity of lung on imaging study Spitting up blood Blurry vision Pure hypercholesterolemia Essential hypertension Hyperlipidemia [place] (myocardial infarction) Surgical History History of back surgery History of throat surgery Hx of colonoscopy Hx of circumcision History of lung surgery Family History Father No problems noted. Mother HTN (hypertension) Family/Other HTN (hypertension) Diabetes Daughter No problems noted. Daughter No problems noted. Son No problems noted. Social History Housing: House Alcohol intake: current Alcohol intake frequency: holidays/special occasions only Patient Tobacco Use Status: Never used Tobacco e-Cigarette/Vaping Use: Never Used Second Hand Smoke Exposure: No service: No Current occupational status: unemployed Cognitive needs: No Hearing needs: No Vision needs: Yes Review of Systems Const Denies daytime sleepiness, Denies excessive sweating, Denies fatigue, Denies fever(s), Denies lethargy, Denies malaise, Denies night sweats, Denies snoring and Denies weight loss Eyes Denies blurry vision and Denies itchy eyes ENT Denies nasal congestion, Denies post nasal drip, Denies sinus pain, Denies sinus pressure and Denies other ( Thrush) Card Denies chest pain, Denies pedal edema, Denies dyspnea, Denies orthopnea and Denies paroxysmal nocturnal dyspnea Resp Denies cough, Denies hemoptysis, Denies excessive phlegm production, Denies dyspnea, Denies snoring and Denies wheezing GI Denies abdominal pain and Denies heartburn Musc Denies myalgias, Denies arthralgias and Denies joint swelling Skin/Breast Denies rash Neuro Denies memory loss and Denies seizure-like activity Psych Denies abnormal sleep pattern, Denies anxiety and Denies memory loss Endo Denies excessive sweating, Denies fatigue and Denies heat intolerance Dontrell/Lymph Denies easy bruising Aller/Immun Denies itchy eyes, Denies seasonal rhinorrhea and Denies wheezing Physical Exam Vital Signs: Last Vital Signs Pulse 58 10/07/24 13:39 BP 110/62 10/07/24 13:39 Pulse Ox 98 10/07/24 13:39 Oxygen Delivery Method Room Air 10/07/24 13:39 BMI result Body Mass Index 30.7 Const General: no acute distress and alert Nutritional Appearance: not obese Orientation/consciousness: Other orientation findings ( oriented) HEENT Head: Yes atraumatic Eyes General: appearance normal, both eyes and all related structures Sclerae: sclerae normal EOM: EOMs intact bilaterally Neck Neck: Yes supple Lymphatic: no lymphadenopathy noted Resp Effort & Inspection: normal respiratory effort and no use of accessory muscles Auscultation: clear to auscultation bilaterally Cardio Rate: regular rate Rhythm: regular rhythm Heart sounds: no gallops, no murmurs and no rubs Skin General skin exam: other ( warm) Extrem General: No clubbing, No cyanosis and No edema Assessment & Plan Assessment & Plan (1) Reactive airway disease: Code(s): J45.909 - Unspecified asthma, uncomplicated Category: Medical Plan: Well controlled on as needed albuterol MDI. Continue current regimen. (2) Pulmonary nodules: Code(s): R91.8 - Other nonspecific abnormal finding of lung field Category: Medical Plan: Results of CT chest from March of 2024 reviewed, stable pulmonary nodules, will repeat CT chest in March of 2025, if no changes at that time, no further imaging follow-up would be required. Orders: Orders CT chest wo IV con 04/08/25 R91.8 - Other nonspecific abnormal finding of lung field Coding Level of Care Code Est Pt Level 4 (45632) Diagnoses Reactive airway disease J45.909 Pulmonary nodules R91.8
== END 2024-10-07 13:51 | disposition home or self-care (01) ==
LOC: HO.HPS 12:55
PROVIDERS: PCP Internal Medicine; Visit Provider Internal Medicine Pulmonary Disease
DX: J45.909 Unspecified asthma, uncomplicated (principal); R91.8 Other nonspecific abnormal finding of lung field
CPT/HCPCS: 99214